=== PATIENT | female | born 1955 | race Caucasian/White ===

== ENCOUNTER 2022-12-16 08:05 | Outpatient (AMB) | payer MEDICARE, SELFPAY ==
--- NOTE | 2022-12-16 08:09 | MHC.OFFWIV ---
Intake Vital Signs 12/16/22 08:10 Height 5 ft 6 in BP 122/70 Blood Pressure Location Lt brachial Position Sitting Pulse 97 Pulse Source Pulse Oximeter Temp 98.1 F Temp Source Oral Pulse Oximetry (%) 96 Oxygen Delivery Method Room Air Intake Visit Reasons: EP Wax Removal Intake Note: Pt is here today for wax removal Allergies No Known Allergies Allergy (Verified 12/16/22 08:28) Medication List - Last Reconciled 12/16/22 by Patricio Cadet MD atorvastatin 20 mg PO DAILY levothyroxine 75 mcg PO DAILY Do you need a note to return to daycare/school/sports/work: No HPI EP Wax Removal HPI Details 67-year-old female presents to the office for a sick visit. Patient has history of hearing loss. She needs her hearing aid replaced. She would like her right ear clean before the hearing aid placement. Physical Exam Vital Signs: Last Vital Signs Temp 98.1 F 12/16/22 08:10 Pulse 97 12/16/22 08:10 BP 122/70 12/16/22 08:10 Pulse Ox 96 12/16/22 08:10 Oxygen Delivery Method Room Air 12/16/22 08:10 HEENT Other: Right ear: Impacted with wax. Left ear wax present, tympanic membrane visualized. Office Procedures Cerumen Removal From which ear canal was the cerumen removed: right Removal: irrigation and otoscope w/curette [id number] Wax Removal by Spoon/Curette Assessment & Plan Assessment & Plan (1) Impacted cerumen, right ear: Code(s): H61.21 - Impacted cerumen, right ear Plan Patient tolerated the procedure well. Orders: Orders AMB Cerumen Removal Today H61.23 - Impacted cerumen, bilateral Coding Level of Care Code Est Pt Level 3 (31736) Diagnoses Impacted cerumen, right ear H61.21 CPT Codes Office Procedure - CPT: 23339-Eoy Wax Removal by Spoon/Curette ([id number])
[2022-12-16 08:10] VITALS: BP 122/70; PULSE 97; TEMP 36.7; O2SAT 96
== END 2022-12-16 08:50 | disposition home or self-care (01) ==
PROVIDERS: PCP Hospitalist; Visit Provider Internal Medicine
DX: H61.21 Impacted cerumen, right ear (principal)
CPT/HCPCS: 69210; 99202

== ENCOUNTER 2023-02-24 09:03 | Outpatient (AMB) | payer MEDICARE, SELFPAY ==
--- NOTE | 2023-02-24 09:11 | A.OFFPC_ITS ---
Vital Signs 02/24/23 09:12 Height 5 ft 6 in Weight 156 lb 4 oz BMI 25.2 BP 126/70 Blood Pressure Location Lt brachial Position Sitting Respiration 12 Pulse 73 Pulse Source Pulse Oximeter Temp 97.2 F Temp Source Temporal Artery Scan Pulse Oximetry (%) 98 Oxygen Delivery Method Room Air Intake Visit Reasons: [employer] Establish care Intake Note: Patient would like to get a new script of medications prescribed by her old primary care office due to her living ot [facility]. She would like the scripts for Atorvastatin and Levothyroxine. [employer] Required: No Accompanied by: Self / Same As Patient Allergies No Known Allergies Allergy (Verified 02/24/23 09:29) Medication List - Last Reconciled 02/24/23 by Albino Martin CNP atorvastatin 20 mg PO DAILY levothyroxine 75 mcg PO DAILY Tobacco use date assessed: 02/24/23 Fall risk assessment: No Falls in past year Last assessed Fall Risk: 02/24/23 Dental Screening Dental Screen Date: 02/24/23 Did you have a dental visit in the last 12 months?: Yes Did you have a dental problem in the last 6 months where you did not have access to dental care?: No Was dental information given to patient?: Patient has dentist HPI HPI Comments History of Present Illness Details 68-year-old female presents to [facility] care She relocated from [place] to [facility] 3 months ago She was last seen by her former PCP 6-7 months. She believes she is due for routine blood work. She has past medical history significant for hyperlipidemia, hypothyroidism, osteoporosis, vitamin B12 deficiency and arthritis of both hands and knees. She also reports palpitations when she is anxious, cardiac origin was ruled out by Cardiology with Holter monitor. She states she takes vit B 12 injections periodically. She states she was on Fosamax for a long period and stopped taking the medication. She reports intermittent bilat knee pain; she requests a referral to Dr. Jimenez, [facility]. She is on Levothyroxine and Atorvastatin which she notes she takes as prescribed. She notes she had an abdominal Ultrasounds done for abdominal pain several months ago; revealed gallstones. She denies acute symptoms at this time. She notes she has not had mammogram in several years : h/o densed tissues. She declines mammogram at this time She states that her last Cologuard test was last year: normal She states her last bone scan was more than 5 years ago: osteoporosis She states her last pap smear test was 5-10 years ago: normal. She declines testing She notes she was vaccinated for shingles in 2019 She states she had the pneumonia vaccines last year. FMH: PGM and MGM had strokes, mother had kidney disease and HTN PFSH Medical History (Updated 02/24/23 @ 10:14 by Albino Martin CNP) Arthritis of both feet Arthritis of both hands Thyroid disease Palpitation Surgical History (Updated 02/24/23 @ 09:24 by Britt Manriquez MA) Hx of cataract removal with insertion of prosthetic lens Family History (Updated 02/24/23 @ 09:25 by Britt Manriquez MA) Mother High blood pressure Maternal Grandmother Cardiovascular disease Paternal Grandmother Cardiovascular disease Social History Housing: House Patient Tobacco Use Status: Never used Tobacco e-Cigarette/Vaping Use: Never Used service: No Current occupational status: retired Cognitive needs: No Hearing needs: Yes Vision needs: Yes Questionnaire PHQ-9 Over the last 2 weeks, how often have you been bothered by any of the following problems? 1. Little interest or pleasure in doing things: not at all 2. Feeling down, depressed, or hopeless: not at all 3. Trouble falling or staying asleep, or sleeping too much: not at all 4. Feeling tired or having little energy: not at all 5. Poor appetite or overeating: not at all 6. Feeling bad about yourself - or that you are a failure or have let yourself or your family down: not at all 7. Trouble concentrating on things, such as reading the newspaper or watching television: not at all 8. Moving or speaking so slowly that other people could have noticed. Or the opposite - being so fidgety or restless that you have been moving around a lot more than usual: not at all 9. Thoughts that you would be better off or of hurting yourself in some way: not at all Total score: 0 Depression Screening Interpretation: Negative Source: Developed by Drs. Vernon Henry, Romana Taylor, Domenico Whitaker and colleagues, with an educational kelton from [employer]. Thrive Questionnaire Date Thrive assessed: 02/24/23 I am a: Patient What is your living situation today?: I have a steady place to live Within the past 12 months, did the food you bought not last and you didn't have the money to get more?: Never true Within the past 12 months, did you worry whether your food would run out before you got money to buy more?: Never true Do you have trouble paying for medicines?: No Do you have trouble getting transportation to medical appointments?: No Do you have trouble paying your heating and electricity bill?: No Do you have trouble taking care of your child, family member or friend?: No Do you have trouble with day-to-day activities such as bathing, preparing meals, shopping, managing finances, etc.?: No Are you currently unemployed and looking for a job?: No Are you interested in more education?: No Please select the resources that you would like help with: None Currently or been in a relationship where the following occur: no concerns reported AUDIT C Alcohol Use Questionnaire (AUDIT-C) 1. How often do you have a drink containing alcohol?: 2-3 times a week 2. How many drinks containing alcohol do you have on a typical day when you are drinking?: 1 or 2 3. How often do you have six or more drinks on one occasion?: Never Total Score: 3 ISAAC-7 AMB Questionnaire ISAAC-7 Date ISAAC - 7 assessed: 02/24/23 Feeling nervous, anxious, or on edge: 0 = Not at all Not being able to stop or control worryin = Not at all Worrying too much about different things: 0 = Not at all Trouble relaxin = Not at all Being so restless that it is hard to sit still: 0 = Not at all Becoming easily annoyed or irritable: 0 = Not at all Feeling afraid as if something awful might happen: 0 = Not at all Total ISAAC-7 score (0-4 normal; 5-9 mild; 10-14 moderate; 15-21 severe): 0 Source: Developed by Drs. Vernon Henry, Romana Taylor, Domenico Whitaker and colleagues, with an educational kelton from [employer]. Review of Systems Const Details: Denies chills, Denies fatigue, Denies fever(s), Denies headache(s) and Denies weakness HEENT Denies change in vision, Denies dizziness, Denies headache(s), Denies hearing loss, Denies nasal congestion, Denies sinus pain, Denies sinus pressure and Denies sore throat Card Denies chest pain, Denies lightheadedness, Denies dyspnea and Denies other (palpitations) Resp Denies cough, Denies dyspnea and Denies wheezing GI Denies abdominal pain, Denies melena, Denies hematochezia, Denies change in bowel habits, Denies dyspepsia and Denies nausea Denies hematuria and Denies dysuria Musc Denies abnormal gait, Denies myalgias, Denies arthralgias, Denies numbness and Denies tingling Skin/Breast Denies rash, Denies unusual bruising and Denies wounds Neuro Denies abnormal gait, Denies dizziness, Denies headache(s), Denies memory loss, Denies numbness, Denies Sensory deficit (Neuro), Denies tingling and Denies weakness Psych Denies anxiety, Denies depression and Denies memory loss Endo Denies cold intolerance, Denies fatigue, Denies heat intolerance, Denies polydipsia and Denies polyuria Alejandro/Lymph Denies easy bleeding and Denies easy bruising Aller/Immun Denies wheezing Physical exam (Primary Care) Vital Signs: Last Vital Signs Temp 97.2 F 02/24/23 09:12 Pulse 73 02/24/23 09:12 Resp 12 02/24/23 09:12 BP 126/70 02/24/23 09:12 Pulse Ox 98 02/24/23 09:12 Oxygen Delivery Method Room Air 02/24/23 09:12 BMI result Body Mass Index 25.2 Tobacco/Smoking Status: Tobacco use Status Tobacco use date assessed 02/24/23 02/24/23 09:22 Patient Tobacco Use Status Never used Tobacco 02/24/23 09:22 e-Cigarette/Vaping Use Never Used 02/24/23 09:22 PHQ-9: PHQ-9 Score PHQ-9: Total score 0 02/24/23 16:59 Depression Screening Interpretation: Negative Thrive Assessment: Date of Thrive Assessment Date Thrive assessed 02/24/23 02/24/23 09:30 Currently or been in a relationship where the following occur: no concerns reported Const Other: General: no acute distress, well developed, alert and awake Nutritional Appearance: well nourished Orientation/consciousness: patient oriented x3 [facility] Head: Yes normocephalic and Yes atraumatic Ears: hearing grossly normal bilaterally and TM's normal bilaterally General nose exam: Normal external nose present and Normal nares present Mouth: Normal oral and palatal mucosa present and moist mucous membranes Teeth and gingiva: dentition normal Throat: Yes oropharynx normal Eyes Pupils: Equal, round and reactive pupils present and Pupil accommodation reflex normal EOM: EOMs intact bilaterally Neck Neck: Yes normal visual inspection, Yes no lymphadenopathy and Yes trachea midline Thyroid: Thyroid normal Carotids: no bruits Lymphatic: no lymphadenopathy noted Chest Chest palpation & inspection: normal inspection of the chest Resp Effort & Inspection: normal respiratory effort Auscultation: clear to auscultation bilaterally Cardio Rate: regular rate Rhythm: regular rhythm Heart sounds: S1 normal heart sound present, S2 normal heart sound present, no gallops, no murmurs and no rubs Bruits: no abdominal aortic bruits and no carotid bruits GI Palpation (GI): No Abdominal aortic bruit present, Soft to palpation, nontender, No hepatosplenomegaly present and No Rebound tenderness present Auscultation: normal bowel sounds General: Yes no CVA tenderness Back/Spine/Pelvis Back: no CVA tenderness Cervical Spine: cervical ROM normal and No Cervical spine tenderness Thoracic/Lumbar Spine: thoraco-lumbar ROM normal, No pain with thoraco-lumbar ROM, No thoracic spinal tenderness and No lumbar spinal tenderness Skin General: warm and dry. Normal skin color. Normal skin turgor Lesions: no lesions Rashes: no rashes Trauma: no lacerations or abrasions Wounds: no wounds Nails: normal Neuro General: patient oriented x3, gait normal and CN's II-XI intact bilaterally Cranial nerves: Yes Equal, round and reactive pupils present Cognition (Neuro): normal cognition Gait exam (Neuro): Normal gait present Motor exam (neuro): 5/5 motor strength present throughout Sensory Exam: No Sensory deficit (Neuro) Deep tendon reflexes (DTR's): Right patellar reflex intensity grade: 2+ and Left patellar reflex intensity grade: 2+ Extrem General: Yes normal to inspection, No edema and No calf tenderness Psych Appearance: grossly normal Affect: normal affect Attitude: cooperative Thought process: Normal thought process present Assessment and Plan Assessment & Plan (1) Normal physical examination, routine: Code(s): Z00.00 - Encounter for general adult medical examination without abnormal findings Plan: No significant physical restrictions or limitations noted Advised to get routine fasting blood work done Follow-up in 1 month for labs review, hyperlipidemia, and hypothyroidism Return sooner with symptoms or concerns Verbalized understanding and agreed with treatment plan. (2) Hypothyroidism: Code(s): E03.9 - Hypothyroidism, unspecified Qualifiers: Hypothyroidism type: unspecified Qualified Code(s): E03.9 - Hypothyroidism, unspecified Plan: TSH/T4 ordered Will review results and make changes to her care plan if warranted Continue to take levothyroxine as prescribed Verbalized understanding and agreed with the treatment plan. (3) Hyperlipidemia: Code(s): E78.5 - Hyperlipidemia, unspecified Qualifiers: Hyperlipidemia type: unspecified Qualified Code(s): E78.5 - Hyperlipidemia, unspecified Plan: Will check lipid panel and make changes to her care plan if warranted Continue to take atorvastatin 20 mg daily Advised to limit foods high in saturated fat and avoid foods high trans fat Routine exercise encouraged Follow-up in 1 month or return sooner with concerns or symptoms Verbalized understanding and agreed with treatment plan. (4) Osteoporosis: Code(s): M81.0 - Age-related osteoporosis without current pathological fracture Qualifiers: Encounter type: initial encounter Osteoporosis type: unspecified Plan: She reports history of osteoporosis and states she was on Fosamax for a long period and stopped taking the medication. DEXA scan ordered. Will review results and make changes to her care plan if warranted Instructed on safety to prevent fall Verbalized understanding and agreed with treatment plan. (5) Arthritis: Code(s): M19.90 - Unspecified osteoarthritis, unspecified site Plan: She reports history of arthritis to her hands and knees. She notes intermittent bilat knee pain and she requests a referral to Dr. Jimenez, [facility]. Referred to Dr. Jimenez, orthopedics May take Tylenol ibuprofen for pain or discomfort Warm/cold compresses encouraged Return with worsening or new symptoms Verbalized understanding and agreed with treatment plan. (6) Laboratory tests ordered as part of a complete physical exam (CPE): Code(s): Z00.00 - Encounter for general adult medical examination without abnormal findings Plan: Fasting labs ordered as part of a complete physical exam. Advised to fast for at least 10 hours before getting labs drawn. May drink water Verbalized understanding and agreed with treatment plan. Orders: Orders Complete Blood Count Auto Diff 02/24/23 Z00.00 - Encounter for general adult medical examination without abnormal findings Comprehensive [place]us. Panel Fast 02/24/23 Z00.00 - Encounter for general adult medical examination without abnormal findings UA CC w/rflx Micro + Cult 02/24/23 Z00.00 - Encounter for general adult medical examination without abnormal findings Lipid Panel 02/24/23 Z00.00 - Encounter for general adult medical examination without abnormal findings TSH reflex Free T4 02/24/23 Z00.00 - Encounter for general adult medical examination without abnormal findings XR DEXA axial skeleton 02/24/23 M81.0 - Age-related osteoporosis without current pathological fracture Referrals Orthopedics Referral M19.90 - Unspecified osteoarthritis, unspecified site Medications: Changed From atorvastatin 20 mg PO DAILY To atorvastatin 20 mg PO DAILY 90 tabs 1RF 90 days From levothyroxine 75 mcg PO DAILY To levothyroxine 75 mcg PO DAILY 90 tabs 1RF 90 days Coding Level of Care Code New Pt Prev Care >65yr (37847) Diagnoses Normal physical examination, routine Z00.00 Hypothyroidism, unspecified type E03.9 Hypothyroidism type: unspecified Hyperlipidemia, unspecified hyperlipidemia type E78.5 Hyperlipidemia type: unspecified Osteoporosis M81.0 Encounter type: initial encounter Osteoporosis type: unspecified Arthritis M19.90 Laboratory tests ordered as part of a complete physical exam (CPE) Z00.00
[2023-02-24 09:12] VITALS: BP 126/70; PULSE 73; RESP 12; TEMP 36.2; O2SAT 98; BMI 25.2
== END 2023-02-24 10:13 | disposition home or self-care (01) ==
PROVIDERS: PCP Hospitalist; Visit Provider Nurse Practitioner Family
DX: Z00.00 Encounter for general adult medical examination without abnormal findings (principal); E03.9 Hypothyroidism, unspecified; E78.5 Hyperlipidemia, unspecified; M81.0 Age-related osteoporosis without current pathological fracture; M19.90 Unspecified osteoarthritis, unspecified site
CPT/HCPCS: 99387

== ENCOUNTER 2023-02-24 10:14 | Outpatient (REF) | payer MEDICARE, SELFPAY ==
[2023-02-24 11:13] LABS: MANUAL DIFF FLAG NO
[2023-02-24 11:43] LABS: Basophils Percent Auto 0.8 % (0-2); Eosinophils Absolute Auto 0.1 X10*3/uL (0.0-0.4); Eosinophils Percent Auto 1.2 % (0-4); Hematocrit 42.7 % (37.0-47.0); Hemoglobin 13.9 g/dl (12.0-16.0); Imm Gran Abs Auto 0.01 X10*3/uL (0.00-0.03); Imm Gran Pct Auto 0.2 % (0.0-0.4); Lymphocytes Absolute Auto 1.9 X10*3/uL (1.2-4.9); Lymphocytes Percent Auto 37.3 % (20-40); Mean Corpuscular HGB Conc 32.6 g/dl (31.0-35.0); Mean Corpuscular Hemoglobin 29.4 pg (27.0-33.0); Mean Corpuscular Volume 90.3 fL (80.0-98.0); Mean Platelet Volume 11.6 fL (9.4-12.3); Monocytes Absolute Auto 0.4 X10*3/uL (0.1-1.2); Monocytes Percent Auto 7.7 % (2-11); Neutrophils Absolute Auto 2.6 x10*3/uL (2.0-8.3); Neutrophils Percent Auto 52.8 % (45-73); Platelet Count 233 X10*3/uL (160-400); Red Blood Count 4.73 X10*6/uL (4.20-5.50); Red Cell Distribution Width 12.2 % (11.0-16.0)
[2023-02-24 13:01] LABS: Alanine Aminotransferase 18 U/L (0-31); Albumin Level 4.2 g/dL (3.5-5.0); Alkaline Phosphatase 90 U/L (39-117); Anion Gap 10 (12-20); Aspartate Amino Transferase 26 U/L (5-31); Bilirubin Total 0.6 mg/dL (0.0-1.0); Blood Urea Nitrogen 12 mg/dL (9-16); Calcium 9.3 mg/dL (8.4-10.2); Carbon Dioxide 28 mmol/L (22-29); Chloride 107 mmol/L (96-108); Cholesterol 185 mg/dL (<200); Estimated Glomerular Filt Rate > 60; Glucose Fasting 90 mg/dL (60-99); HDL Cholesterol 54 mg/dL (>40); LDL Cholesterol Calculated 109 mg/dL (<100); Potassium 3.6 mmol/L (3.3-5.1); Sodium 141 mmol/L (135-145); Total Protein 7.2 g/dL (6.5-8.0); Triglycerides 113 mg/dL (<150)
[2023-02-24 13:17] LABS: TSH reflex Free T4 0.42 uIU/mL (0.32-4.0)
[2023-02-24 15:08] LABS: Appearance Urine Turbid; Color Urine Yellow; Glucose Urine UA Negative (Negative); Leukocyte Esterase Urine Trace (Negative); Nitrite Urine Negative (Negative); PH 5.5 (5.0-9.0); UMIC TRIGGER UACC YES; Urine Blood Trace (Negative); Urine Ketones Negative (Negative); Urine Protein Negative (Neg-Trace)
[2023-02-24 15:11] LABS: Bacteria Urine None Seen (None Seen); Hyaline Casts Urine 0-2 /LPF (0-2); RBC Urine 0-2 /HPF (0-2); Squamous Epithelial Cell Urine 0-2 /HPF (0-2); WBC Urine 0-5 /HPF (0-5)
== END 2023-02-24 10:15 | disposition home or self-care (01) ==
LOC: HO.WFDLDS 10:14
PROVIDERS: Visit Provider Nurse Practitioner Family
DX: Z00.00 Encounter for general adult medical examination without abnormal findings (principal)
CPT/HCPCS: 36415; 80053; 80061; 81001; 81003; 84443; 85025

== ENCOUNTER 2023-03-18 10:23 | Outpatient (REF) | payer MEDICARE, SELFPAY | END 2023-03-18 10:24 | disposition home or self-care (01) | LOC: HO.MAMMO 10:23 | PROVIDERS: PCP Nurse Practitioner Family; Visit Provider Nurse Practitioner Family | DX: Z13.820 Encounter for screening for osteoporosis (principal); M81.0 Age-related osteoporosis without current pathological fracture; Z78.0 Asymptomatic menopausal state | CPT/HCPCS: 77080 ==

== ENCOUNTER 2023-03-25 08:53 | Outpatient (AMB) | payer MEDICARE, SELFPAY ==
[2023-03-25 08:58] VITALS: BP 126/66; PULSE 84; RESP 13; TEMP 37; O2SAT 99; BMI 25.3
--- NOTE | 2023-03-25 08:58 | A.OFFPC_ITS ---
Vital Signs 03/25/23 08:58 Height 5 ft 6 in Weight 157 lb BMI 25.3 BP 126/66 Blood Pressure Location Lt brachial Position Sitting Respiration 13 Pulse 84 Pulse Source Pulse Oximeter Temp 98.6 F Temp Source Oral Pulse Oximetry (%) 99 Oxygen Delivery Method Room Air Intake Visit Reasons: f/u labs review, HLD, hypothyroidism Intake Note: Patient is here to review her labs and her bone density screening. 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 She established care last month. Routine labs were ordered. She offers no complaints and denies acute symptoms. She had a bone scan on 03/18/2023 which revealed Osteoporosis based on the lowest T-score value of -2.7 in the total femur. She notes that she was on Fosamax for 3 years. She stopped taking the medication 1 year ago due to a scheduled took extraction that required her not being on the medication. She notes she did not get the tooth extracted and did not resumed taking the medication. She does not want to continue taking Fosamax. [facility] Medical History (Updated 03/25/23 @ 09:56 by Albino Martin CNP) Arthritis of both feet Arthritis of both hands Thyroid disease Palpitation Surgical History (Updated 02/24/23 @ 09:24 by Britt Manriquez MA) Hx of cataract removal with insertion of prosthetic lens Family History (Updated 02/24/23 @ 09:25 by Britt Manriquez MA) Mother High blood pressure Maternal Grandmother Cardiovascular disease Paternal Grandmother Cardiovascular disease Social History Housing: House Patient Tobacco Use Status: Never used Tobacco e-Cigarette/Vaping Use: Never Used service: No Current occupational status: retired Cognitive needs: No Hearing needs: Yes Vision needs: Yes Questionnaire Thrive Questionnaire Date Thrive assessed: 02/24/23 ISAAC-7 AMB Questionnaire ISAAC-7 Date ISAAC - 7 assessed: 02/24/23 Source: Developed by Drs. Vernon Henry, Romana Taylor, Domenico Whitaker and colleagues, with an educational kelton from [employer]. Review of Systems Const Details: Const Denies chills, Denies fatigue, Denies fever(s), Denies headache(s) and Denies weakness ENT Denies dizziness and Denies headache(s) Card Denies chest pain, Denies lightheadedness, Denies dyspnea and Denies other (Palpitations) Resp Denies cough, Denies dyspnea, Denies wheezing and Denies other ( shortness of breath) GI Denies abdominal pain, Denies melena, Denies hematochezia, Denies change in bowel habits, Denies dyspepsia and Denies nausea Denies hematuria and Denies dysuria Musc Denies abnormal gait, Denies myalgias, Denies arthralgias, Denies numbness and Denies tingling Skin/Breast Denies rash, Denies unusual bruising and Denies wounds Neuro Denies abnormal gait, Denies dizziness, Denies headache(s), Denies memory loss, Denies numbness, Denies Sensory deficit (Neuro), Denies tingling and Denies weakness Psych Denies anxiety, Denies depression, Denies memory loss Endo Denies cold intolerance, Denies fatigue, Denies heat intolerance, Denies polydipsia and Denies polyuria Aller/Immun Denies wheezing Physical exam (Primary Care) Vital Signs: Last Vital Signs Temp 98.6 F 03/25/23 08:58 Pulse 84 03/25/23 08:58 Resp 13 03/25/23 08:58 BP 126/66 03/25/23 08:58 Pulse Ox 99 03/25/23 08:58 Oxygen Delivery Method Room Air 03/25/23 08:58 BMI result Body Mass Index 25.3 Tobacco/Smoking Status: Tobacco use Status Tobacco use date assessed 02/24/23 03/25/23 09:04 Patient Tobacco Use Status Never used Tobacco 03/25/23 09:04 e-Cigarette/Vaping Use Never Used 03/25/23 09:04 Thrive Assessment: Date of Thrive Assessment Date Thrive assessed 02/24/23 03/25/23 09:04 Const Other: General: no acute distress and well developed Nutritional Appearance: well nourished Orientation/consciousness: patient oriented x3 HENMT Head: Yes normocephalic and Yes atraumatic Eyes General: appearance normal, both eyes and all related structures Pupils: Equal, round and reactive pupils present EOM: EOMs intact bilaterally Resp Effort & Inspection: normal respiratory effort Auscultation: clear to auscultation bilaterally Cardio Rate: regular rate Rhythm: regular rhythm Heart sounds: S1 normal heart sound present, S2 normal heart sound present, no gallops, no murmurs and no rubs GI Palpation (GI): No Abdominal aortic bruit present, Soft to palpation, nontender, No hepatosplenomegaly present and No Rebound tenderness present Auscultation: normal bowel sounds General: Yes no CVA tenderness Back/Spine/Pelvis Back: no CVA tenderness Cervical Spine: cervical ROM normal and No Cervical spine tenderness Thoracic/Lumbar Spine: thoraco-lumbar ROM normal, No pain with thoraco-lumbar ROM, No thoracic spinal tenderness and No lumbar spinal tenderness Extrem General: Yes normal to inspection, No edema and No calf tenderness Skin General: warm and dry. Normal skin color. Normal skin turgor Lesions: no lesions Rashes: no rashes Trauma: no lacerations or abrasions Wounds: no wounds Nails: normal Neuro General: patient oriented x3, gait normal and no focal neuro deficit Cranial nerves: Yes Equal, round and reactive pupils present Cognition (Neuro): normal cognition Gait exam (Neuro): Normal gait present Sensory Exam: No Sensory deficit (Neuro) Psych Appearance: grossly normal Affect: normal affect Attitude: cooperative Thought process: Normal thought process present Assessment and Plan Assessment & Plan (1) Hyperlipidemia: Code(s): E78.5 - Hyperlipidemia, unspecified Qualifiers: Hyperlipidemia type: unspecified Qualified Code(s): E78.5 - Hyperlipidemia, unspecified Plan: Recent labs reviewed the patient. Results were unremarkable except for slightly elevated LDL, 109 Continue with current treatment regimen Advised to limit foods high in saturated fat and avoid foods high trans fat Routine exercise encouraged Will repeat lipid panel in 6 months. Advised to fast for her 10-12 hours and get blood work done 2-3 days before next visit Return with symptoms or concerns Verbalized understanding and agreed with treatment plan. (2) Osteoporosis: Code(s): M81.0 - Age-related osteoporosis without current pathological fracture Qualifiers: Osteoporosis type: unspecified Encounter type: initial encounter Plan: She had a bone scan on 03/18/2023 which revealed Osteoporosis based on the lowest T-score value of -2.7 in the total femur. She notes that she was on Fosamax for 3 years. She stopped taking the medication 1 year ago due to a scheduled took extraction that required her not being on the medication. She notes she did not get the tooth extracted and did not resumed taking the medication. She does not want to cont inue taking Fosamax. She is on vitamin D3 2000 units daily Will check vitamin-D levels Continue to take vitamin D3 daily Will recheck levels in 6 months Verbalized understanding and agreed with treatment plan. (3) Hypothyroidism: Code(s): E03.9 - Hypothyroidism, unspecified Qualifiers: Hypothyroidism type: unspecified Qualified Code(s): E03.9 - Hypothyroidism, unspecified Plan: Recent TSH level is normal Continue current treatment regimen Will recheck levels in 6 months Follow-up in 6 months or return sooner with symptoms or concerns Verbalized understanding and agreed with treatment plan. (4) Vitamin D deficiency: Code(s): E55.9 - Vitamin D deficiency, unspecified Plan: Vitamin-D level was slightly low on was 4 years ago, 25. She is on vitamin D3 2000 units daily. Continue to take as prescribed Will recheck vitamin-D level in 6 months Verbalized understanding and agreed with treatment plan Orders: Orders Lipid Panel Today E78.5 - Hyperlipidemia, unspecified Vitamin D 25-OH Total Today E55.9 - Vitamin D deficiency, unspecified TSH reflex Free T4 Today E03.9 - Hypothyroidism, unspecified Vitamin D 25-OH Total Today E55.9 - Vitamin D deficiency, unspecified Coding Level of Care Code Est Pt Level 4 (41288) Diagnoses Hyperlipidemia, unspecified hyperlipidemia type E78.5 Hyperlipidemia type: unspecified Osteoporosis M81.0 Osteoporosis type: unspecified Encounter type: initial encounter Hypothyroidism, unspecified type E03.9 Hypothyroidism type: unspecified Vitamin D deficiency E55.9
== END 2023-03-25 10:02 | disposition home or self-care (01) ==
PROVIDERS: PCP Hospitalist; Visit Provider Nurse Practitioner Family
DX: E78.5 Hyperlipidemia, unspecified (principal); M81.0 Age-related osteoporosis without current pathological fracture; E03.9 Hypothyroidism, unspecified; E55.9 Vitamin D deficiency, unspecified
CPT/HCPCS: 99214

== ENCOUNTER 2023-03-25 09:54 | Outpatient (REF) | payer MEDICARE, SELFPAY ==
[2023-03-25 15:28] LABS: Cholesterol 179 mg/dL (<200); HDL Cholesterol 55 mg/dL (>40); LDL Cholesterol Calculated 100 mg/dL (<100); TSH reflex Free T4 0.55 uIU/mL (0.32-4.0); Triglycerides 123 mg/dL (<150); Vitamin D 25-OH Total 36.7 ng/mL (>30)
== END 2023-03-25 09:55 | disposition home or self-care (01) ==
LOC: HO.WFDLDS 09:54
PROVIDERS: Visit Provider Nurse Practitioner Family
DX: E55.9 Vitamin D deficiency, unspecified (principal); E03.9 Hypothyroidism, unspecified; E78.5 Hyperlipidemia, unspecified
CPT/HCPCS: 36415; 80061; 82306; 84443

== ENCOUNTER 2023-10-12 12:33 | Outpatient (AMB) | payer MEDICARE, SELFPAY ==
[2023-10-12 12:41] VITALS: BP 130/80; PULSE 94; TEMP 36.8; O2SAT 96; BMI 26.5
--- NOTE | 2023-10-12 12:41 | AM.OFFWIN_ITS ---
Intake Vital Signs 10/12/23 12:41 Height 5 ft 6 in Weight 164 lb BMI 26.5 BP 130/80 Blood Pressure Location Lt brachial Position Sitting Pulse 94 Pulse Source Pulse Oximeter Temp 98.2 F Temp Source Temporal Artery Scan Pulse Oximetry (%) 96 Oxygen Delivery Method Room Air Intake Visit Reasons: EP Sore throat Intake Note: pt is here today for sore throat started today Patient Tobacco Use Status: Never used Tobacco Allergies No Known Allergies Allergy (Verified 10/12/23 12:46) Do you need a note to return to daycare/school/sports/work: No HPI HPI Comments History of Present Illness Details Patient presents to the walk-in today for sick visit Complaining of sore throat since this morning Pain worse with swallowing Denies headaches, fevers, chest pain, syncope, dizziness, weakness or difficulty managing secretions States had COVID in the past with sore throat similar. Did not take a COVID test at home because she thought it was too soon. She was worried that she has strep throat. [facility] Medical History (Updated 10/12/23 @ 13:25 by Elham Burnett APRN, BORDER PATROL AGENT) Arthritis of both feet Arthritis of both hands Thyroid disease Palpitation Surgical History (Updated 02/24/23 @ 09:24 by AL Freedman) Hx of cataract removal with insertion of prosthetic lens Family History (Updated 02/24/23 @ 09:25 by AL Freedman) Mother High blood pressure Maternal Grandmother Cardiovascular disease Paternal Grandmother Cardiovascular disease Social History Housing: House Patient Tobacco Use Status: Never used Tobacco e-Cigarette/Vaping Use: Never Used service: No Current occupational status: retired Cognitive needs: No Hearing needs: Yes Vision needs: Yes Review of Systems Const All systems reviewed & are unremarkable except as noted in HPI and below Physical Exam Vital Signs: Last Vital Signs Temp 98.2 F 10/12/23 12:41 Pulse 94 10/12/23 12:41 BP 130/80 10/12/23 12:41 Pulse Ox 96 10/12/23 12:41 Oxygen Delivery Method Room Air 10/12/23 12:41 BMI result Body Mass Index 26.5 General: awake, alert, oriented. Answers questions appropriately. Fully engaged in examination. Skin: warm, dry, intact HEENT: Posterior pharynx without exudate. Moist oral mucosa. Sclera without icterus or injection. Cardiac: External chest normal in appearance. Respiratory: Resp even unlabored. No audible wheezing or stridor. Abdomen: without gross distension. Neurological: Oriented to person, place, time and situation. Thought process intact. Psychiatric: Appropriate mood and affect. Good judgment and insight. Results AMB Rapid Strep AMB Rapid Strep Negative Last Edit by Suzan Saleem MA on 10/12/23 13:36 Results Reviewed Results Reviewed: Rapid strep negative Assessment & Plan Assessment & Plan (1) Pharyngitis: Code(s): J02.9 - Acute pharyngitis, unspecified Plan Strep negative, no abx warranted. SARS-CoV2/FLU/RSV swab collected, results pending. Patient aware she will be called with results. Rest, drink plenty of fluids, tylenol or motrin as needed. Recommend salt water gargles Follow up with pcp or in clinic for any new or worsening symptoms. Go to ER for shortness of breath, chest pain, palpitations, weakness, dizziness. Orders: Orders SARS-CoV2/FLU/RSV Today J06.9 - Acute upper respiratory infection, unspecified Coding Level of Care Code Est Pt Level 3 (37789) Diagnoses Pharyngitis J02.9
== END 2023-10-12 14:31 | disposition home or self-care (01) ==
PROVIDERS: PCP Nurse Practitioner Family; Visit Provider Registered Nurse Emergency
DX: J02.9 Acute pharyngitis, unspecified (principal)
CPT/HCPCS: 87880; 99213

== ENCOUNTER 2023-10-12 13:21 | Outpatient (REF) | payer MEDICARE, SELFPAY ==
[2023-10-12 17:44] LABS: Influenza A PCR NEGATIVE (Negative); Influenza B PCR NEGATIVE (Negative); Resp Syncy Virus RNA Qual PCR NEGATIVE (Negative); SARS COV2 PCR INHOUSE NEGATIVE (Negative)
== END 2023-10-12 13:22 | disposition home or self-care (01) ==
LOC: HO.LAB 13:21
PROVIDERS: Visit Provider Registered Nurse Emergency
DX: J06.9 Acute upper respiratory infection, unspecified (principal)
CPT/HCPCS: 0241U

== ENCOUNTER 2023-10-20 12:57 | Outpatient (AMB) | payer MEDICARE, SELFPAY ==
--- NOTE | 2023-10-20 13:07 | MHC.PC.OV ---
Vital Signs 10/20/23 13:11 Height 5 ft 6 in Weight 164 lb 6 oz BMI 26.5 BP 128/66 Blood Pressure Location Rt brachial Position Sitting Respiration 14 Pulse 82 Pulse Source Pulse Oximeter Temp 97.5 F Temp Source Temporal Artery Scan Pulse Oximetry (%) 98 Oxygen Delivery Method Room Air Intake Visit Reasons: 6 mos HLD, hypothyroidism, vitamin-D deficiency Meter Maker Required: No Accompanied by: Self / Same As Patient Allergies No Known Allergies Allergy (Verified 10/20/23 13:29) Medication List - Last Reconciled 10/20/23 by Albino Martin CNP atorvastatin 20 mg PO DAILY 90 days cholecalciferol (vitamin D3) 50 mcg PO DAILY levothyroxine 75 mcg PO DAILY 90 days Tobacco use date assessed: 10/20/23 Fall risk assessment: No Falls in past year Last assessed Fall Risk: 10/20/23 Dental Screening Dental Screen Date: 10/20/23 Did you have a dental visit in the last 12 months?: Yes Did you have a dental problem in the last 6 months where you did not have access to dental care?: No Was dental information given to patient?: Patient has dentist HPI HPI Comments History of Present Illness Details 68-year-old female presents for hyperlipidemia, hypothyroidism, and vitamin-D deficiency follow-up She admits to taking her medications as prescribed without adverse reactions She notes that she recently recovered from a cold She has an appointment with [facility] orthopedic surgery for right knee replacement. She reports chronic right knee pain for which she takes Tylenol occasionally She denies acute symptoms at this time [facility] Medical History (Updated 10/12/23 @ 13:25 by Elham Burnett APRN, CNP) Arthritis of both feet Arthritis of both hands Thyroid disease Palpitation Surgical History (Updated 02/24/23 @ 09:24 by AL Freedman) Hx of cataract removal with insertion of prosthetic lens Family History (Updated 10/20/23 @ 13:20 by AL Freedman) Mother High blood pressure Maternal Grandmother Cardiovascular disease Paternal Grandmother Cardiovascular disease Social History Household Members: None Both parents involved: No Caregiver staying overnight: No Housing: House Are you a primary clinical manager home care to a significant other at home: No Do you presently have visiting nurse or other home services: No 75 years or older and lives alone: No Alcohol intake: current Alcohol intake frequency: holidays/special occasions only Alcohol type: wine and hard liquor Patient Tobacco Use Status: Never used Tobacco e-Cigarette/Vaping Use: Never Used service: No Current occupational status: retired Cognitive needs: No Hearing needs: Yes Vision needs: No Questionnaire Thrive Questionnaire Date Thrive assessed: 02/24/23 ISAAC-7 AMB Questionnaire ISAAC-7 Date ISAAC - 7 assessed: 02/24/23 Source: Developed by Drs. Vernon Henry, Romana Taylor, Domenico Whitaker and colleagues, with an educational kelton from [employer] Review of Systems Const Details: Const Denies chills, Denies fatigue, Denies fever(s), Denies headache(s) and Denies weakness ENT Denies dizziness and Denies headache(s) Card Denies chest pain, Denies lightheadedness, Denies dyspnea and Denies other (Palpitations) Resp Denies cough, Denies dyspnea, Denies wheezing and Denies other ( shortness of breath) GI Denies abdominal pain, Denies melena, Denies hematochezia, Denies change in bowel habits, Denies dyspepsia and Denies nausea Denies hematuria and Denies dysuria Musc Reports as per HPI Skin/Breast Denies rash, Denies unusual bruising and Denies wounds Neuro Denies abnormal gait, Denies dizziness, Denies headache(s), Denies memory loss, Denies numbness, Denies Sensory deficit (Neuro), Denies tingling and Denies weakness Psych Denies anxiety, Denies depression, Denies memory loss Endo Denies cold intolerance, Denies fatigue, Denies heat intolerance, Denies polydipsia and Denies polyuria Aller/Immun Denies wheezing Physical exam (Primary Care) Tobacco/Smoking Status: Tobacco use Status Tobacco use date assessed 02/24/23 03/25/23 09:04 Patient Tobacco Use Status Never used Tobacco 10/12/23 12:42 e-Cigarette/Vaping Use Never Used 03/25/23 09:04 Thrive Assessment: Date of Thrive Assessment Date Thrive assessed 02/24/23 03/25/23 09:04 Const Other: General: no acute distress and well developed Nutritional Appearance: well nourished Orientation/consciousness: patient oriented x3 HENMT Head: Yes normocephalic and Yes atraumatic Eyes General: appearance normal, both eyes and all related structures Pupils: Equal, round and reactive pupils present EOM: EOMs intact bilaterally Resp Effort & Inspection: normal respiratory effort Auscultation: clear to auscultation bilaterally Cardio Rate: regular rate Rhythm: regular rhythm Heart sounds: S1 normal heart sound present, S2 normal heart sound present, no gallops, no murmurs and no rubs GI Palpation (GI): No Abdominal aortic bruit present, Soft to palpation, nontender, No hepatosplenomegaly present and No Rebound tenderness present Auscultation: normal bowel sounds General: Yes no CVA tenderness Back/Spine/Pelvis Back: no CVA tenderness Cervical Spine: cervical ROM normal and No Cervical spine tenderness Thoracic/Lumbar Spine: thoraco-lumbar ROM normal, No pain with thoraco-lumbar ROM, No thoracic spinal tenderness and No lumbar spinal tenderness Extrem General: Yes normal to inspection, No edema and No calf tenderness Skin General: warm and dry. Normal skin color. Normal skin turgor Neuro General: patient oriented x3, gait normal and no focal neuro deficit Cranial nerves: Yes Equal, round and reactive pupils present Cognition (Neuro): normal cognition Gait exam (Neuro): Normal gait present Sensory Exam: No Sensory deficit (Neuro) Psych Appearance: grossly normal Affect: normal affect Attitude: cooperative Thought process: Normal thought process present Assessment and Plan Assessment & Plan (1) Hypothyroidism: Code(s): E03.9 - Hypothyroidism, unspecified Qualifiers: Hypothyroidism type: unspecified Qualified Code(s): E03.9 - Hypothyroidism, unspecified Plan: TSH level was normal in March 2023 She forget to get fasting blood work done before this visit but will do so as soon as possible. Will make changes as needed Continue to take levothyroxine 25 mcg daily Follow-up in 5 months for an extended physical exam or return sooner with symptoms or concerns Verbalized understanding and agreed with treatment (2) Vitamin D deficiency: Code(s): E55.9 - Vitamin D deficiency, unspecified Plan: Vitamin-D level was normal in March 2023 Plan as above (3) Hyperlipidemia: Code(s): E78.5 - Hyperlipidemia, unspecified Qualifiers: Hyperlipidemia type: unspecified Qualified Code(s): E78.5 - Hyperlipidemia, unspecified Plan: Lipid panel was normal in March 2023 Plan as above (4) Chronic pain of right knee: Code(s): M25.561 - Pain in right knee; G89.29 - Other chronic pain Plan: Followed by [facility] orthopedic surgery Has total knee replacement surgery schedule in January Take Tylenol ibuprofen as needed Warm/cool compresses encouraged Verbalized understanding and agreed with the plan Orders: Orders Comprehensive [place]. Panel Fast 5 Months Z00.00 - Encounter for general adult medical examination without abnormal findings TSH reflex Free T4 5 Months Z00.00 - Encounter for general adult medical examination without abnormal findings Microalbumin, Random (w Creat) 5 Months Z00.00 - Encounter for general adult medical examination without abnormal findings Complete Blood Count Auto Diff 5 Months Z00.00 - Encounter for general adult medical examination without abnormal findings Lipid Panel 5 Months Z00.00 - Encounter for general adult medical examination without abnormal findings UA CC w/rflx Micro + Cult 5 Months Z00.00 - Encounter for general adult medical examination without abnormal findings Vitamin D 25-OH Total 5 Months Z00.00 - Encounter for general adult medical examination without abnormal findings Coding Level of Care Code Est Pt Level 4 (55930) Complex EM visit Add On G2211 Diagnoses Hypothyroidism, unspecified type E03.9 Hypothyroidism type: unspecified Vitamin D deficiency E55.9 Hyperlipidemia, unspecified hyperlipidemia type E78.5 Hyperlipidemia type: unspecified Chronic pain of right knee M25.561; G89.29
[2023-10-20 13:11] VITALS: BP 128/66; PULSE 82; RESP 14; TEMP 36.4; O2SAT 98; BMI 26.5
== END 2023-10-20 13:44 | disposition home or self-care (01) ==
PROVIDERS: PCP Nurse Practitioner Family; Visit Provider Nurse Practitioner Family
DX: E03.9 Hypothyroidism, unspecified (principal); E55.9 Vitamin D deficiency, unspecified; E78.5 Hyperlipidemia, unspecified; M25.561 Pain in right knee; G89.29 Other chronic pain
CPT/HCPCS: 99214; G2211

== ENCOUNTER 2023-10-26 08:26 | Outpatient (REF) | payer MEDICARE, SELFPAY ==
[2023-10-26 11:32] LABS: MANUAL DIFF FLAG NO
[2023-10-26 11:41] LABS: Basophils Percent Auto 0.7 % (0-2); Eosinophils Absolute Auto 0.1 X10*3/uL (0.0-0.4); Hematocrit 41.9 % (37.0-47.0); Hemoglobin 13.6 g/dl (12.0-16.0); Imm Gran Abs Auto 0.01 X10*3/uL (0.00-0.03); Imm Gran Pct Auto 0.2 % (0.0-0.4); Lymphocytes Absolute Auto 2.2 X10*3/uL (1.2-4.9); Lymphocytes Percent Auto 40.9 % (20-40); Mean Corpuscular HGB Conc 32.5 g/dl (31.0-35.0); Mean Corpuscular Hemoglobin 29.8 pg (27.0-33.0); Mean Corpuscular Volume 91.9 fL (80.0-98.0); Mean Platelet Volume 10.6 fL (9.4-12.3); Monocytes Absolute Auto 0.5 X10*3/uL (0.1-1.2); Monocytes Percent Auto 8.4 % (2-11); Neutrophils Absolute Auto 2.6 x10*3/uL (2.0-8.3); Neutrophils Percent Auto 47.8 % (45-73); Platelet Count 260 X10*3/uL (160-400); Red Blood Count 4.56 X10*6/uL (4.20-5.50); Red Cell Distribution Width 12.2 % (11.0-16.0); White Blood Count 5.4 X10*3/uL (4.8-10.8)
[2023-10-26 12:13] LABS: Alanine Aminotransferase 21 U/L (0-31); Albumin Level 3.9 g/dL (3.5-5.0); Alkaline Phosphatase 87 U/L (39-117); Anion Gap 13 (12-20); Aspartate Amino Transferase 27 U/L (5-31); Bilirubin Total 0.6 mg/dL (0.0-1.0); Blood Urea Nitrogen 12 mg/dL (9-16); Calcium 9.1 mg/dL (8.4-10.2); Carbon Dioxide 26 mmol/L (22-29); Chloride 108 mmol/L (96-108); Cholesterol 185 mg/dL (<200); Estimated Glomerular Filt Rate > 60; Glucose Fasting 91 mg/dL (60-99); HDL Cholesterol 51 mg/dL (>40); LDL Cholesterol Calculated 111 mg/dL (<100); Potassium 4.1 mmol/L (3.3-5.1); Sodium 143 mmol/L (135-145); Total Protein 6.8 g/dL (6.5-8.0); Triglycerides 116 mg/dL (<150); Vitamin D 25-OH Total 51.4 ng/mL (>30)
[2023-10-26 14:48] LABS: Appearance Urine Clear; Color Urine Yellow; Glucose Urine UA Negative (Negative); Leukocyte Esterase Urine Trace (Negative); Nitrite Urine Negative (Negative); UMIC TRIGGER UACC YES; Urine Blood Negative (Negative); Urine Ketones Negative (Negative); Urine Protein Negative (Neg-Trace)
[2023-10-26 14:51] LABS: Bacteria Urine None Seen (None Seen); Hyaline Casts Urine 0-2 /LPF (0-2); RBC Urine 0-2 /HPF (0-2); Squamous Epithelial Cell Urine 0-2 /HPF (0-2); WBC Urine 0-5 /HPF (0-5)
[2023-10-26 15:37] LABS: Creatinine Urine 35.27 mg/dL; Microalbumin Urine < 5.0 mg/L
== END 2023-10-26 08:27 | disposition home or self-care (01) ==
LOC: HO.WFDLDS 08:26
PROVIDERS: Visit Provider Nurse Practitioner Family
DX: Z00.00 Encounter for general adult medical examination without abnormal findings (principal); E55.9 Vitamin D deficiency, unspecified; E78.5 Hyperlipidemia, unspecified; E03.9 Hypothyroidism, unspecified
CPT/HCPCS: 36415; 80053; 80061; 81001; 82043; 82306; 82570; 84443; 85025

== ENCOUNTER 2024-04-05 09:23 | Outpatient (REF) | payer MEDICARE, SELFPAY ==
[2024-04-05 12:47] LABS: Cholesterol 168 mg/dL (<200); HDL Cholesterol 55 mg/dL (>40); LDL Cholesterol Calculated 97 mg/dL (<100); Triglycerides 82 mg/dL (<150)
[2024-04-05 13:13] LABS: TSH reflex Free T4 0.89 uIU/mL (0.32-4.0)
[2024-04-05 15:26] LABS: Appearance Urine Turbid; Color Urine Yellow; Glucose Urine UA Negative (Negative); Leukocyte Esterase Urine Trace (Negative); Nitrite Urine Negative (Negative); Specific Gravity - Urine 1.025 (1.005-1.025); UMIC TRIGGER UACC YES; Urine Blood Negative (Negative); Urine Ketones Negative (Negative); Urine Protein Negative (Neg-Trace)
[2024-04-05 16:25] LABS: Bacteria Urine None Seen (None Seen); Hyaline Casts Urine 0-2 /LPF (0-2); RBC Urine 0-2 /HPF (0-2); Squamous Epithelial Cell Urine 0-2 /HPF (0-2); WBC Urine 0-5 /HPF (0-5)
== END 2024-04-05 09:24 | disposition home or self-care (01) ==
LOC: HO.WFDLDS 09:23
PROVIDERS: Visit Provider Nurse Practitioner Family
DX: Z00.00 Encounter for general adult medical examination without abnormal findings (principal); E03.9 Hypothyroidism, unspecified
CPT/HCPCS: 36415; 80061; 81001; 81003; 82306; 84443

== ENCOUNTER 2024-04-12 15:59 | Outpatient (AMB) | payer MEDICARE, SELFPAY ==
--- NOTE | 2024-04-12 16:02 | MHC.PC.OV ---
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 Is last menstrual period known: No Post menopausal: No Patient : No Allergies No Known Allergies Allergy (Verified 04/12/24 16:17) Medication List - Last Reconciled 04/12/24 by Albino Martin CNP atorvastatin 20 mg PO DAILY 90 days cholecalciferol (vitamin D3) 50 mcg PO DAILY levothyroxine 75 mcg PO DAILY 90 days Tobacco use date assessed: 04/12/24 Fall risk assessment: No Falls in past year Last assessed Fall Risk: 04/12/24 Dental Screening Dental Screen Date: 04/12/24 Did you have a dental visit in the last 12 months?: Yes Did you have a dental problem in the last 6 months where you did not have access to dental care?: No Was dental information given to patient?: Patient has dentist HPI HPI Comments History of Present Illness Details 69-year-old female presents for review of recent lab results She admits to taking her medications as prescribed without adverse reactions She notes that she had right total knee replacement in 02/02/2024 at [facility]. She went home the day after surgery. No changes with her routine medications. She is currently doing PT twice weekly and is scheduled until early May. She denies unsteady gait. She has been taking Tylenol as needed. She has history of arthritis of both knees. She is [place] both ears and wears hearing heads. She reports frequent accumulation of wax in her ears and requests assessment of her ears [facility] History Arthritis of both feet Arthritis of both hands Thyroid disease Palpitation Surgical History Hx of cataract removal with insertion of prosthetic lens Family History (Updated 10/20/23 @ 13:20 by AL Freedman) Mother High blood pressure Maternal Grandmother Cardiovascular disease Paternal Grandmother Cardiovascular disease Social History Household Members: None Both parents involved: No Caregiver staying overnight: No Housing: House Are you a primary client care representative to a significant other at home: No Do you presently have visiting nurse or other home services: No 75 years or older and lives alone: No Alcohol intake: current Alcohol intake frequency: holidays/special occasions only Alcohol type: wine and hard liquor Patient Tobacco Use Status: Never used Tobacco e-Cigarette/Vaping Use: Never Used service: No Current occupational status: retired Cognitive needs: No Hearing needs: Yes Vision needs: No Questionnaire PHQ-9 Over the last 2 weeks, how often have you been bothered by any of the following problems? 1. Little interest or pleasure in doing things: not at all 2. Feeling down, depressed, or hopeless: not at all 3. Trouble falling or staying asleep, or sleeping too much: not at all 4. Feeling tired or having little energy: not at all 5. Poor appetite or overeating: not at all 6. Feeling bad about yourself - or that you are a failure or have let yourself or your family down: not at all 7. Trouble concentrating on things, such as reading the newspaper or watching television: not at all 8. Moving or speaking so slowly that other people could have noticed. Or the opposite - being so fidgety or restless that you have been moving around a lot more than usual: not at all 9. Thoughts that you would be better off or of hurting yourself in some way: not at all Total score: 0 Depression Screening Interpretation: Negative Depression Screening Done: Yes Source: Developed by Drs. Vernon Henry, Romana Taylor, Domenico Whitaker and colleagues, with an educational kelton from [employer]. Thrive Questionnaire Date Thrive assessed: 02/24/23 I am a: Patient What is your living situation today?: I have a steady place to live Within the past 12 months, did the food you bought not last and you didn't have the money to get more?: Never true Within the past 12 months, did you worry whether your food would run out before you got money to buy more?: Never true Do you have trouble paying for medicines?: No Do you have trouble getting transportation to medical appointments?: No Do you have trouble paying your heating and electricity bill?: No Do you have trouble taking care of your child, family member or friend?: No Do you have trouble with day-to-day activities such as bathing, preparing meals, shopping, managing finances, etc.?: No Are you currently unemployed and looking for a job?: No Are you interested in more education?: No Please select the resources that you would like help with: None Currently or been in a relationship where the following occur: No concerns reported THRIVE Score: 0 AUDIT C Alcohol Use Questionnaire (AUDIT-C) 1. How often do you have a drink containing alcohol?: 2-3 times a week 2. How many drinks containing alcohol do you have on a typical day when you are drinking?: 1 or 2 3. How often do you have six or more drinks on one occasion?: Never Total Score: 3 ISAAC-7 AMB Questionnaire ISAAC-7 Date ISAAC - 7 assessed: 02/24/23 Feeling nervous, anxious, or on edge: 0 = Not at all Not being able to stop or control worryin = Not at all Worrying too much about different things: 0 = Not at all Trouble relaxin = Not at all Being so restless that it is hard to sit still: 0 = Not at all Becoming easily annoyed or irritable: 0 = Not at all Feeling afraid as if something awful might happen: 0 = Not at all Total ISAAC-7 score (0-4 normal; 5-9 mild; 10-14 moderate; 15-21 severe): 0 Source: Developed by Drs. Vernon Henry, Romana Taylor, Domenico Whitaker and colleagues, with an educational kelton from [employer]. Review of Systems Const Details: Const Denies chills, Denies fatigue, Denies fever(s), Denies headache(s) and Denies weakness ENT Reports as per HPI Card Denies chest pain, Denies lightheadedness, Denies dyspnea and Denies other (Palpitations) Resp Denies cough, Denies dyspnea, Denies wheezing and Denies other ( shortness of breath) GI Denies abdominal pain, Denies melena, Denies hematochezia, Denies change in bowel habits, Denies dyspepsia and Denies nausea Denies hematuria and Denies dysuria Musc Denies abnormal gait, Denies myalgias, Denies arthralgias, Denies numbness and Denies tingling Skin/Breast Denies rash, Denies unusual bruising and Denies wounds Neuro Denies abnormal gait, Denies dizziness, Denies headache(s), Denies memory loss, Denies numbness, Denies Sensory deficit (Neuro), Denies tingling and Denies weakness Psych Denies anxiety, Denies depression, Denies memory loss Endo Denies cold intolerance, Denies fatigue, Denies heat intolerance, Denies polydipsia and Denies polyuria Aller/Immun Denies wheezing Physical exam (Primary Care) Vital Signs: Last Vital Signs Temp 98.3 F 04/12/24 16:06 Pulse 86 04/12/24 16:06 Resp 16 04/12/24 16:06 BP 116/68 04/12/24 16:06 Pulse Ox 97 04/12/24 16:06 Oxygen Delivery Method Room Air 04/12/24 16:06 BMI result Body Mass Index 25.7 Tobacco/Smoking Status: Tobacco use Status Tobacco use date assessed 04/12/24 04/12/24 16:09 Patient Tobacco Use Status Never used Tobacco 04/12/24 16:04 e-Cigarette/Vaping Use Never Used 04/12/24 16:04 PHQ-9: PHQ-9 Score PHQ-9: Total score 0 04/12/24 16:04 Depression Screening Interpretation: Negative Thrive Assessment: Date of Thrive Assessment Date Thrive assessed 02/24/23 04/12/24 16:04 Currently or been in a relationship where the following occur: No concerns reported Const Other: General: no acute distress and well developed Nutritional Appearance: well nourished Orientation/consciousness: patient oriented x3 HENMT Head is normocephalic Right ear canal and TM is normal. Left ear canal with cerumen occluding the TM Nasal turbinates and oropharynx are pink and moist Sinuses are nontender with palpation No auricular or cervical lymphadenopathy Eyes General: appearance normal, both eyes and all related structures Pupils: Equal, round and reactive pupils present EOM: EOMs intact bilaterally Resp Effort & Inspection: normal respiratory effort Auscultation: clear to auscultation bilaterally Cardio Rate: regular rate Rhythm: regular rhythm Heart sounds: S1 normal heart sound present, S2 normal heart sound present, no gallops, no murmurs and no rubs GI Palpation (GI): No Abdominal aortic bruit present, Soft to palpation, nontender, No hepatosplenomegaly present and No Rebound tenderness present Auscultation: normal bowel sounds General: Yes no CVA tenderness Back/Spine/Pelvis Back: no CVA tenderness Extrem General: Yes normal to inspection, No calf tenderness. Moderate, none pitting edema of the right knee and lower leg. Surgical incision of the right knee has completely healed Skin General: warm and dry. Normal skin color. Normal skin turgor Neuro General: patient oriented x3, gait normal and no focal neuro deficit Cranial nerves: Yes Equal, round and reactive pupils present Cognition (Neuro): normal cognition Gait exam (Neuro): Normal gait present Sensory Exam: No Sensory deficit (Neuro) Psych Appearance: grossly normal Affect: normal affect Attitude: cooperative Thought process: Normal thought process present Coding Level of Care Code Est Pt Level 4 (73372) Diagnoses Status post total right knee replacement Z96.651 Impacted cerumen, left ear H61.22 Assessment & Plan Assessment & Plan (1) Status post total right knee replacement: Code(s): Z96.651 - Presence of right artificial knee joint Category: Surgical Plan: She had total right knee replacement in 02/02/2024 and currently doing physical therapy Moderate, none pitting edema of the right knee and lower leg. Surgical incision of the right knee has completely healed Advised to continue to take Tylenol as needed and elevate the right lower extremity to reduce swelling Follow-up with physical therapy and orthopedic surgery as planned Follow-up in 1 month for an extended physical exam or return sooner with symptoms or concerns Verbalized understanding and agreed with treatment plan Recent lab results reviewed; unremarkable findings (2) Impacted cerumen, left ear: Code(s): H61.22 - Impacted cerumen, left ear Category: Medical Plan: Significant amount of cerumen removed from the left ear with ear lavage Left ear canal and TM is normal after cerumen removal Encouraged to follow-up as needed Verbalized understanding and agreed with the treatment plan
[2024-04-12 16:06] VITALS: BP 116/68; PULSE 86; RESP 16; TEMP 36.8; O2SAT 97; BMI 25.7
== END 2024-04-12 16:36 | disposition home or self-care (01) ==
LOC: HO.HMCFM 16:00
PROVIDERS: PCP Nurse Practitioner Family; Visit Provider Nurse Practitioner Family
DX: Z96.651 Presence of right artificial knee joint (principal); H61.22 Impacted cerumen, left ear

== ENCOUNTER → 2024-04-12 15:59 | Outpatient (BNVA) | payer MEDICARE, SELFPAY | PROVIDERS: PCP Nurse Practitioner Family; Visit Provider Nurse Practitioner Family | DX: H61.22 Impacted cerumen, left ear (principal); Z96.651 Presence of right artificial knee joint | CPT/HCPCS: 96127; 99212 ==

== ENCOUNTER 2024-05-11 10:11 | Outpatient (AMB) | payer MEDICARE, SELFPAY ==
--- NOTE | 2024-05-11 10:16 | A.OFFPC_ITS ---
Vital Signs 05/11/24 10:23 Height 5 ft 6 in Weight 159 lb 4 oz BMI 25.7 BP 123/60 Blood Pressure Location Rt brachial Position Sitting Respiration 16 Pulse 86 Pulse Source Pulse Oximeter Temp 97.2 F Temp Source Temporal Artery Scan Pulse Oximetry (%) 96 Oxygen Delivery Method Room Air Intake Visit Reasons: mawv Intake Note: patient here for CPE Photo Mask Processor Required: No Is last menstrual period known: No Post menopausal: No Patient : No Allergies No Known Allergies Allergy (Verified 05/11/24 10:54) Medication List - Last Reconciled 05/11/24 by Albino Martin CNP atorvastatin 20 mg PO DAILY 90 days cholecalciferol (vitamin D3) 50 mcg PO DAILY levothyroxine 75 mcg PO DAILY 90 days Tobacco use date assessed: 05/11/24 Fall risk assessment: No Falls in past year Last assessed Fall Risk: 05/11/24 Dental Screening Dental Screen Date: 05/11/24 Did you have a dental visit in the last 12 months?: Yes Did you have a dental problem in the last 6 months where you did not have access to dental care?: No Was dental information given to patient?: Patient has dentist HPI HPI Comments History of Present Illness Details The patient is a 69-year-old female presenting for a physical examination and wellness visit. She recently underwent a total right knee replacement at the end of January this year and reports that while the knee itself is functioning well, she experiences soreness in the surrounding muscles. She also expresses concern regarding her left knee, which she is attempting to preserve. Her medical history is significant for hyperlipidemia, hypothyroidism, vitamin D deficiency, and osteoporosis, with a recorded bone density T-score of negative 2.7. She has a history of taking Fosamax for osteoporosis for three years but discontinued two and a half years ago due to dental work requirements. Her treatment regimen includes taking atorvastatin, vitamin D3, and levothyroxine. She has maintained routine check-ups, with her last colon cancer screening via Cologuard approximately two years ago and a bone density test earlier this month showing continued osteoporosis. An eye examination is scheduled for June 2024. No recent abnormal findings from recent lab work. Social History - Does not smoke or use recreational tae gs. - Occasionally consumes alcohol, approxi mately one cordial twice a week. - Actively attempts dietary improvements , currently on a meal plan for dinner. - Exercises as tolerated, primarily walk ing and performing balance exercises. - Reports satisfactory sleep patterns wi th some disturbance post-surgery. - Lives an independent lifestyle, mindfu l of her activity limitations due to knee surgeries. Health Maintenance - Most recent bone density test on Octob er 2022, indicating osteoporosis. - She has not had a mammogram in several years due to history of dense tissues; declines mammogram at this time. - Shingles vaccine received in 2019. - Pneumonia, COVID, and flu vaccinations are updated. - Last dental cleaning conducted in [facility] y March 2024. - Last eye exam was over a year ago. [facility] eye appointment for June 2024. - Routine Cologuard test last performed two years ago; noted to be updated. - Last Pap smear test reportedly 5 to 10 years ago but declines further testing. PFS Medical History Arthritis of both feet Arthritis of both hands Thyroid disease Palpitation Surgical History Hx of cataract removal with insertion of prosthetic lens Family History (Updated 10/20/23 @ 13:20 by AL Freedman) Mother High blood pressure Maternal Grandmother Cardiovascular disease Paternal Grandmother Cardiovascular disease Social History Household Members: None Both parents involved: No Caregiver staying overnight: No Housing: House Are you a primary assisted living care manager to a significant other at home: No Do you presently have visiting nurse or other home services: No 75 years or older and lives alone: No Alcohol intake: current Alcohol intake frequency: holidays/special occasions only Alcohol type: wine and hard liquor Patient Tobacco Use Status: Never used Tobacco e-Cigarette/Vaping Use: Never Used service: No Current occupational status: retired Cognitive needs: No Hearing needs: Yes Vision needs: No Questionnaire PHQ-9 Over the last 2 weeks, how often have you been bothered by any of the following problems? 1. Little interest or pleasure in doing things: not at all 2. Feeling down, depressed, or hopeless: not at all 3. Trouble falling or staying asleep, or sleeping too much: not at all 4. Feeling tired or having little energy: not at all 5. Poor appetite or overeating: not at all 6. Feeling bad about yourself - or that you are a failure or have let yourself or your family down: not at all 7. Trouble concentrating on things, such as reading the newspaper or watching television: not at all 8. Moving or speaking so slowly that other people could have noticed. Or the opposite - being so fidgety or restless that you have been moving around a lot more than usual: not at all 9. Thoughts that you would be better off or of hurting yourself in some way: not at all Total score: 0 Depression Screening Interpretation: Negative Depression Screening Done: Yes 72211 - PHQ-9 Billing: Yes Source: Developed by Drs. Vernon Henry, Romana Taylor, Domenico Whitaker and colleagues, with an educational kelton from [employer]. Thrive Questionnaire Date Thrive assessed: 05/11/24 I am a: Patient What is your living situation today?: I have a steady place to live Within the past 12 months, did the food you bought not last and you didn't have the money to get more?: Never true Within the past 12 months, did you worry whether your food would run out before you got money to buy more?: Never true Do you have trouble paying for medicines?: No Do you have trouble getting transportation to medical appointments?: No Do you have trouble paying your heating and electricity bill?: No Do you have trouble taking care of your child, family member or friend?: No Do you have trouble with day-to-day activities such as bathing, preparing meals, shopping, managing finances, etc.?: No Are you currently unemployed and looking for a job?: No Are you interested in more education?: No Please select the resources that you would like help with: None Currently or been in a relationship where the following occur: No concerns reported THRIVE Score: 0 AUDIT C Alcohol Use Questionnaire (AUDIT-C) 1. How often do you have a drink containing alcohol?: 2-3 times a week 2. How many drinks containing alcohol do you have on a typical day when you are drinking?: 1 or 2 3. How often do you have six or more drinks on one occasion?: Never Total Score: 3 Score Reviewed/Action Taken: Yes ISAAC-7 AMB Questionnaire ISAAC-7 Date ISAAC - 7 assessed: 05/11/24 Feeling nervous, anxious, or on edge: 0 = Not at all Not being able to stop or control worryin = Not at all Worrying too much about different things: 0 = Not at all Trouble relaxin = Not at all Being so restless that it is hard to sit still: 0 = Not at all Becoming easily annoyed or irritable: 0 = Not at all Feeling afraid as if something awful might happen: 0 = Not at all Total ISAAC-7 score (0-4 normal; 5-9 mild; 10-14 moderate; 15-21 severe): 0 Source: Developed by Drs. Vernon Henry, Romana Taylor, Domenico Whitaker and colleagues, with an educational kelton from [employer]. ISAAC-7 Assessment Billing ISAAC-7 Assessment Tool: ISAAC-7 Assessment 55541 Review of Systems Const Details: Denies chills, Denies fatigue, Denies fever(s), Denies headache(s) and Denies weakness HEENT Denies change in vision, Denies dizziness, Denies headache(s), Denies hearing loss, Denies nasal congestion, Denies sinus pain, Denies sinus pressure and Denies sore throat Card Denies chest pain, Denies lightheadedness, Denies dyspnea and Denies other (palpitations) Resp Denies cough, Denies dyspnea and Denies wheezing GI Denies abdominal pain, Denies melena, Denies hematochezia, Denies change in bowel habits, Denies dyspepsia and Denies nausea Denies hematuria and Denies dysuria Musc Reports soreness in the muscles around the right knee; denies current knee joint pain, Denies abnormal gait, Denies myalgias, Denies arthralgias, Denies numbness and Denies tingling Skin/Breast Denies rash, Denies unusual bruising and Denies wounds Neuro Denies abnormal gait, Denies dizziness, Denies headache(s), Denies memory loss, Denies numbness, Denies Sensory deficit (Neuro), Denies tingling and Denies weakness Psych Denies anxiety, Denies depression and Denies memory loss Endo Denies cold intolerance, Denies fatigue, Denies heat intolerance, Denies polydipsia and Denies polyuria Alejandro/Lymph Denies easy bleeding and Denies easy bruising Aller/Immun Denies wheezing Physical exam (Primary Care) Vital Signs: Last Vital Signs Temp 97.2 F 05/11/24 10:23 Pulse 86 05/11/24 10:23 Resp 16 05/11/24 10:23 BP 123/60 05/11/24 10:23 Pulse Ox 96 05/11/24 10:23 Oxygen Delivery Method Room Air 05/11/24 10:23 BMI result Body Mass Index 25.7 Tobacco/Smoking Status: Tobacco use Status Tobacco use date assessed 05/11/24 05/11/24 10:22 Patient Tobacco Use Status Never used Tobacco 05/11/24 10:18 e-Cigarette/Vaping Use Never Used 05/11/24 10:18 PHQ-9: PHQ-9 Score PHQ-9: Total score 0 05/11/24 15:18 Depression Screening Interpretation: Negative Thrive Assessment: Date of Thrive Assessment Date Thrive assessed 05/11/24 05/11/24 10:22 Currently or been in a relationship where the following occur: No concerns reported Const Other: General: no acute distress, well developed, alert and awake Nutritional Appearance: well nourished Orientation/consciousness: patient oriented x3 HENMT Head: Yes normocephalic and Yes atraumatic Ears: hearing grossly normal bilaterally and TM's normal bilaterally General nose exam: Normal external nose present and Normal nares present Mouth: Normal oral and palatal mucosa present and moist mucous membranes Teeth and gingiva: dentition normal Throat: Yes oropharynx normal Eyes Pupils: Equal, round and reactive pupils present and Pupil accommodation reflex normal EOM: EOMs intact bilaterally Neck Neck: Yes normal visual inspection, Yes no lymphadenopathy and Yes trachea midline Thyroid: Thyroid normal Carotids: no bruits Lymphatic: no lymphadenopathy noted Chest Chest palpation & inspection: normal inspection of the chest Resp Effort & Inspection: normal respiratory effort Auscultation: clear to auscultation bilaterally Cardio Rate: regular rate Rhythm: regular rhythm Heart sounds: S1 normal heart sound present, S2 normal heart sound present, no gallops, no murmurs and no rubs Bruits: no abdominal aortic bruits and no carotid bruits GI Palpation (GI): No Abdominal aortic bruit present, Soft to palpation, nontender, No hepatosplenomegaly present and No Rebound tenderness present Auscultation: normal bowel sounds General: Yes no CVA tenderness Back/Spine/Pelvis Back: no CVA tenderness Cervical Spine: cervical ROM normal and No Cervical spine tenderness Thoracic/Lumbar Spine: thoraco-lumbar ROM normal, No pain with thoraco-lumbar ROM, No thoracic spinal tenderness and No lumbar spinal tenderness Skin General: warm and dry. Normal skin color. Normal skin turgor Lesions: no lesions Rashes: no rashes Trauma: no lacerations or abrasions Wounds: no wounds Nails: normal Neuro General: patient oriented x3, gait normal and CN's II-XI intact bilaterally Cranial nerves: Yes Equal, round and reactive pupils present Cognition (Neuro): normal cognition Gait exam (Neuro): Normal gait present Motor exam (neuro): 5/5 motor strength present throughout Sensory Exam: No Sensory deficit (Neuro) Deep tendon reflexes (DTR's): Right patellar reflex intensity grade: 2+ and Left patellar reflex intensity grade: 2+ Extrem Right knee stiffness and pain with palpation around the muscles noted Psych Appearance: grossly normal Affect: normal affect Attitude: cooperative Thought process: Normal thought process present Coding Level of Care Code Est Pt Prev Care >65y(41646) Diagnoses Normal physical examination, routine Z00.00 Status post total right knee replacement Z96.651 Osteoporosis M81.0 Encounter type: initial encounter Osteoporosis type: unspecified Colon cancer screening Z12.11 Additional Codes ISAAC-7 Assessment Billing - ISAAC-7 Assessment Tool: ISAAC-7 Assessment 36257 ([id number]) PHQ-9 - 52325 - PHQ-9 Billing: Yes ([id number]) Assessment & Plan Assessment & Plan (1) Normal physical examination, routine: Code(s): Z00.00 - Encounter for general adult medical examination without abnormal findings Category: Medical Plan: No significant functional limitation noted. (2) Status post total right knee replacement: Code(s): Z96.651 - Presence of right artificial knee joint Category: Surgical Plan: Take Tylenol or Ibuprofen as needed for pain or discomfort. May also apply warm or cool commpresses as needed. Encourage adherence to physical therapy exercises and protection of the left knee. (3) Osteoporosis: Code(s): M81.0 - Age-related osteoporosis without current pathological fracture Category: Medical Qualifiers: Encounter type: initial encounter Osteoporosis type: unspecified Plan: Refer to endocrinology for further management of osteoporosis. (4) Colon cancer screening: Code(s): Z12.11 - Encounter for screening for malignant neoplasm of colon Category: Medical Plan: Order Cologuard for colorectal cancer screening. Plan We discussed the patient's ongoing muscle soreness following her knee replacement surgery, and she was advised that rehabilitation exercises will aid recovery. I recommended a referral to endocrinology for further osteoporotic management because of the bone density results, potentially considering alternative treatments due to her discontinuation of Fosamax. Cologuard test will be ordered as it's been two years since the last screening. I addressed concerns about potential adjustments to her medication due to future insurance coverage changes, confirming that we can discuss alternatives as needed. We reviewed the importance of continued exercise, diet management, and routine screenings to maintain health. I will have the patient follow up in six months or sooner if needed. Orders: Orders Lipid Panel 6 Months E78.5 - Hyperlipidemia, unspecified Vitamin D 25-OH Total 6 Months E55.9 - Vitamin D deficiency, unspecified TSH reflex Free T4 6 Months Z00.00 - Encounter for general adult medical examination without abnormal findings Referrals Cologuard Test Z12.11 - Encounter for screening for malignant neoplasm of colon, Z12.12 - Encounter for screening for malignant neoplasm of rectum Endocrinology Referral M81.0 - Age-related osteoporosis without current pathological fracture Patient Instructions: - Adhere to the prescribed medication regimen. - Pursue endocrine consultation for osteoporosis management. - Complete Cologuard test upon receipt. - Continue physical therapy exercises as discussed. - Schedule any overdue health screenings as advised. - Perform fasting blood work, fast 10-12 hours, may drink water, before her next visit. - Follow up in six months for hyperlipidemia, hypothyroidism, and vitamin D deficiency or sooner if new concerns arise. Patient was informed and verbally consented to the use of an ambient scribe for clinic note documentation during this visit.
[2024-05-11 10:23] VITALS: BP 123/60; PULSE 86; RESP 16; TEMP 36.2; O2SAT 96; BMI 25.7
--- OUTSIDE RECORDS SUMMARY | 2024-05-17 17:28 | XMS_ITS | Continuity of Care Document ---
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 Name Role Phone Eliazar Tucker OD Unavailable Unavailable Allergies, Adverse Reactions, Alerts Substance Reaction Status Criticality No Known Allergies Active No Inform ation Medications Medication Instructions Dosage Effective Dates (start - stop) Status Comments levothyroxine 75 mcg capsule take 1 capsule by oral route every day 75 MCG - Active atorvastatin 20 mg tablet take 1 tablet by oral route every day 20 MG - Active Procedures Procedure Date Ophth Serv: Med Exam; Comp Est REFRACTION OCT RNFL/HRT Visual Field Comp Diagnostic Only Offic/outpt E&m Estab Low-mod 2 Visual Field Comp No Visual Field Comp Offic/outpt E&m Estab Low-mod 2 Visual Field Comp OCT RNFL/HRT Pachymetry No Visual Field Comp OCT RNFL/HRT Ophth Serv: Med Exam; Comp New Advance Directives Directive Yes / No Effective Date File Name No Information Encounters Encounter Description Practice Location Reason(s) For Visit Diagnoses Date Provider Providers Copied on Encounter [facility], [address] [place], [place] [address], [id number], [facility] BRN No Information Sep-0 3 Garrett OD Eliazar. [facility] , [place], [place], [address] [place] [address]. tel:[phone] [facility], [address] [place] [address], [place], [address] [place] [address], [facility] BRWN glaucoma suspect (chief complaint) Open angle with borderline findings and low glaucoma risk in both eyesPresence of intraocular lensOther secondary cataract, right eyePosterior vitreous detachment of left eyePresbyopia 3 Garrett OD Eliazar. [address] [place] [address], [place], [address] [place] [address] , . [phone] Referring Provider: Eliazar Tucker OD A, [address] [place] [address] , [place], [address] [place] [address] . tel:[phone] [place] [address], [place], [address] [place] [address], [facility] BR Open angle with borderline findings, high risk, bilateral Jul-0 3 Garrett OD Eliazar. [address] [place] [address], [place], [address] [place] [address] , . [phone] Referring Provider: Eliazar Tucker OD A, [address] [place] [address] , [place], [address] [place] [address] . tel:[phone] Offic/outpt E&m Estab Low-mod [facility], [address] [place] [address], [place], [address] [place] [address], [facility], [place] Glaucoma (chief complaint)F loater (chief complaint) Open angle with borderline findings, high risk, bilateralPresenc e of intraocular lensOther secondary cataract, right eyePosterior vitreous detachment of left eye Mar-0 2 Garrett OD Eliazar. [facility] , [place], [address] [place] [address]. [phone] Referring Provider: Eliazar Tucker OD A, [facility] , [place], [address] [place] [address] . tel:[phone] [facility], [address] [place] [address], [place], [address] [place] [address] [facility] BR Open angle with borderline findings, high risk, bilateral Sep- 2 [place] OD Eliazar. [address] [facility] [address], [place], [address] [place] [address]. [phone] Referring Provider: Eliazar Tucker OD A, [address] [facility] [address], [place], [address] . tel:[phone] Offic/outpt E&m Estab Low-mod [facility], [address] [place] [address], [place], [address] [place] [address] [facility] BR Follow Up of glaucoma suspect (chief complaint) Open angle with borderline findings, high risk, bilateralPresenc e of intraocular lens Aug- 2 [place] OD Eliazar. [address] [place] [address] [address], [place], [address] [place] [address] , . [phone] Referring Provider: Eliazar Tucker OD A, [address] [place] [address] 230, [place], [address] . tel:[phone] [facility], [address] [place] [address], [place], [address] [place] [address], [facility] BR Open angle with borderline findings and low glaucoma risk in both eyes Aug- 0 2 [place] OD Eliazar. [address] [place] [address], [place], [address] [place] [address] , . [phone] Referring Provider: Yovany Galindo DO, [address] [facility], [place], [address] . tel:[phone] [facility], [address] [place] [address], [place], [phone], [facility] BR Glaucoma suspect evaluation (chief complaint) Open angle with borderline findings and low glaucoma risk in both eyesPresence of intraocular lensPosterior vitreous detachment of both eyesOther secondary cataract, right eye 2 Garrett OD Eliazar. [address], [place], [place], [id number] , . tel:[phone] Referring Provider: Yovany Galindo DO [address] [place], [address] . 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) [employer] Medicare Advantage Plans CI [id number] Social History Type Description Quantity Date Captured Comments Alcohol Use Details Unknown Caffeine Use Details Unknown Tobacco Use Status No Information Smoking Status No Information Sex Female Chief Complaint And Reason For Visit No Information Reason For Referral Reason For Referral No Information Plan Of Treatment Date Type Action Status Referral Ordered: Yovany Galindo DO -Family Medicine (related to Other secondary cataract, right eye) ordered Referral Referred To: Yovany Galindo DO [address] [place], [place], [phone] Ordered: Referrals: Family Medicine. Yovany Galindo DO. Assume care ordered History Of Present Illness Encounter Date Complaint History Of Prese nt Illness glaucoma suspect The 67 year old female presents for her 1 year followup for being a glaucoma suspect in both eyes. The patient would like to go over her visual field testing. The patient reports no changes to her vision over the last year. Glaucoma Patient presents for a glaucoma pressure check in both eyes. Patient denies any changes to her vision. Floater Patient presents for a evaluation for a floater in the left eye. Patient states she noticed it a couple days ago. She states it comes and goes, denies any flashes of light or a curtain across her vision. Follow Up of glaucoma suspect Th e patient is here for a follow up of glaucoma suspect after having her visual field testing. Glaucoma suspect evaluation Kristy ent presents for an evaluation of being a glaucoma suspect, Patient denies any glaucoma treatment states her pressure has been around 15-17, Patient states her eye Dr was monitoring her every 6 months with visual block and pictures of the back of her eyes, Patients last exam was in october of 2020 Functional Status Date Functional Assessmen t No Information Instructions Date Instruction Additional Infor joshua Return for 1 year (H VF/RNFL-GCA) prior to (DFE) Related to Open angle with borderline findings and low glaucoma risk in both eyes Impression/Plan Related to Presb yopia Impression/Plan Related to Other secondary cataract, right eye Impression/Plan Related to Poste rior vitreous detachment of left eye Impression/Plan Related to Open angle with borderline findings and low glaucoma risk in both eyes Impression/Plan Related to Prese nce of intraocular lens Oct Return for 4-5 month (HVF/RNFL) prior to (DFE) Related to Open angle with borderline findings, high risk, bilateral Oct- Impression/Plan Related to Poste rior vitreous detachment of left eye Oct- Impression/Plan Related to Open angle with borderline findings, high risk, bilateral Oct- Impression/Plan Related to Prese nce of intraocular lens Impression/Plan Related to Other secondary cataract, right eye Return in 1 year for HVF/RNFL prior to dilated exam with Dr. Tucker. Related to Open angle with borderline findings, high risk, bilateral Impression/Plan Related to Open angle with borderline findings, high risk, bilateral Impression/Plan Related to Prese nce of intraocular lens Return to clinic in 1-[address] Eliazar Tucker OD for HVF/RNFL prior to IOP check Related to Open angle with borderline findings and low glaucoma risk in both eyes Impression/Plan Related to Other secondary cataract, right eye Impression/Plan Related to Open angle with borderline findings and low glaucoma risk in both eyes Impression/Plan Related to Prese nce of intraocular lens Impression/Plan Related to Poste rior vitreous detachment of both eyes Assessments Type Assessment Date No Information Patient Care Teams Name Effective Dates (start - stop) Status Members No Information
== END 2024-05-11 11:14 | disposition home or self-care (01) ==
PROVIDERS: PCP Nurse Practitioner Family; Visit Provider Nurse Practitioner Family
DX: Z00.00 Encounter for general adult medical examination without abnormal findings (principal); Z96.651 Presence of right artificial knee joint; M81.0 Age-related osteoporosis without current pathological fracture; Z12.11 Encounter for screening for malignant neoplasm of colon

== ENCOUNTER → 2024-05-11 10:11 | Outpatient (BNVA) | payer MEDICARE, SELFPAY | PROVIDERS: PCP Nurse Practitioner Family; Visit Provider Nurse Practitioner Family | DX: Z00.00 Encounter for general adult medical examination without abnormal findings (principal); M81.0 Age-related osteoporosis without current pathological fracture; Z96.651 Presence of right artificial knee joint | CPT/HCPCS: 96127; 99397 ==

== ENCOUNTER 2024-05-23 13:15 | Outpatient (AMB) | payer MEDICARE, SELFPAY ==
--- OUTSIDE RECORDS SUMMARY | 2024-05-23 13:17 | XMS_ITS | Continuity of Care Document ---
Author Organization [facility] s Address [address] [address] Care Team Providers Care Instructor Painting Name Role Phone Eliazar Tucker OD Unavailable [...] Diagnoses Date Provider Providers Copied on Encounter [facility], [address] [place], [place] [address], [id number], [facility] BRN No Information Sep-0 3 Garrett OD Eliazar. [facility] , [place], [place], [address] [place] [address]. tel:[phone] [facility], [address] [place] [address], [place], [address] [place] [address], [facility] BRWN glaucoma suspect (chief complaint) Open angle with borderline findings and low glaucoma risk in both eyesPresence of intraocular lensOther secondary cataract, right eyePosterior vitreous detachment of left eyePresbyopia 3 Garrett OD Eliazar. [address] [place] [address], [place], [address] [place] [address] , . [phone] Referring Provider: Eliazar Tucker OD A, [address] [place] [address] , [place], [address] [place] [address] . tel:[phone] [place] [address], [place], [address] [place] [address], [facility] BR Open angle with borderline findings, high risk, bilateral Jul-0 3 Garrett OD Eliazar. [address] [place] [address], [place], [address] [place] [address] , . [phone] Referring Provider: Eliazar Tucker OD A, [address] [place] [address] , [place], [address] [place] [address] . tel:[phone] Offic/outpt E&m Estab Low-mod [facility], [address] [place] [address], [place], [address] [place] [address], [facility], [place] Glaucoma (chief complaint)F loater (chief complaint) Open angle with borderline findings, high risk, bilateralPresenc e of intraocular lensOther secondary cataract, right eyePosterior vitreous detachment of left eye Mar-0 2 Garrett OD Eliazar. [facility] , [place], [address] [place] [address]. [phone] Referring Provider: Eliazar Tucker OD A, [facility] , [place], [address] [place] [address] . tel:[phone] [facility], [address] [place] [address], [place], [address] [place] [address] [facility] BR Open angle with borderline findings, high risk, bilateral Sep- 2 [place] OD Eliazar. [address] [facility] [address], [place], [address] [place] [address]. [phone] Referring Provider: Eliazar Tucker OD A, [address] [facility] [address], [place], [address] . tel:[phone] Offic/outpt E&m Estab Low-mod [facility], [address] [place] [address], [place], [address] [place] [address] [facility] BR Follow Up of glaucoma suspect (chief complaint) Open angle with borderline findings, high risk, bilateralPresenc e of intraocular lens Aug- 2 [place] OD Eliazar. [address] [place] [address], [place], [address] [place] [address] , . [phone] Referring Provider: Eliazar Tucker OD A, [address] [place] [address] 230, [place], [address] . tel:[phone] [facility], [address] [place] [address], [place], [address] [place] [address], [facility] BR Open angle with borderline findings and low glaucoma risk in both eyes Aug- 0 2 [place] OD Eliazar. [address] [place] [address], [place], [address] [place] [address] , . [phone] Referring Provider: Yovany Galindo DO, [address] [facility], [place], [address] . tel:[phone] [facility], [address] [place] [address], [place], [id number], [facility] BR Glaucoma suspect evaluation (chief complaint) Open angle with borderline findings and low glaucoma risk in both eyesPresence of intraocular lensPosterior vitreous detachment of both eyesOther secondary cataract, right eye 2 Garrett OD Eliazar. [address], [place], [place], [id number] , . tel:[phone] Referring Provider: Yovany Galindo DO [address] [place], [address] . tel:[phone] Family History Family Member Type Diagnosis Age At Onset Father Problem (finding) Maternal aunt Problem Glaucoma Mother Problem (finding) degenerative disorder o f macula Payers Payer name Insurance type Covered alliance party ID Emely sales(s) ZZZAARP Medicare Advantage Plans CI [id number] Social History Type Description Quantity Date [...] Referral Referred To: Yovany Galindo DO [address] [place], [place], [phone] Ordered: Referrals: Family Medicine. Yovany Galindo DO. [...] to her vision over the last year. Floater Patient presents for a evaluation for a floater in the left eye. Patient states she noticed it a couple days ago. She states it comes and goes, denies any flashes of light or a curtain across her vision. Glaucoma Patient presents for a glaucoma pressure check in both eyes. Patient denies any changes to her vision. Follow Up of glaucoma suspect [...]
--- NOTE | 2024-05-23 13:22 | A.OFFVIS_ITS ---
Vital Signs 05/23/24 13:28 Height 5 ft 6.09 in Weight 161 lb 2.526 oz BMI 25.9 BP 114/64 Blood Pressure Location Rt brachial Position Sitting Pulse 92 Pulse Source Pulse Oximeter Intake Visit Reasons: Age-related osteoporosis without current pathologi Intake Note: New patient internally referred PCP for Age-related Osteoporosis w/o current pathological. Esthetics Instructor Required: No Accompanied by: Self / Same As Patient Allergies No Known Allergies Allergy (Verified 05/23/24 13:29) Medication List - Last Reconciled 05/23/24 by Vernon Cheatham MD acetaminophen (Tylenol Extra Strength) 500 mg PO Q6H PRN atorvastatin 20 mg PO DAILY 90 days cholecalciferol (vitamin D3) 50 mcg PO DAILY levothyroxine 75 mcg PO DAILY 90 days HPI Comments Details: 69 YO Female with is seen in consultation at the request of PCP for Osteoporosis. First diagnosed in few yrs ago .Has not seen specialist before Received treatment in the past with alendronate, from to 1001-3349 for 3 years. Tolerated treatment well without complication. No history of pathologic fracture or ONJ. Has several servings of dietary calcium per day in the form of cheese, broccoli , ice cream , milk . Not Takes Calcium supplement [] mg daily in divided doses. Takes 2000 IU of Vitamin D daily. Denies ever using PPI, anticoagulant, antiepileptic or glucocorticoid medication. Does weight bearing exercise 2 days per week in the form of knee rehab . 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 UTD on dental cleanings and sees dentist every 6 months. No planned upcoming dental work or extractions. DXA dated 03/30: FINDINGS: LEFT FEMUR, NECK: BMD 0.704 g/cm2, Z-score -1.0, T-score -2.4, osteopenia. LEFT FEMUR, TOTAL: BMD 0.669 g/cm2, Z-score -1.5, T-score -2.7, osteoporosis. AP SPINE L1-L4: BMD 1.028 g/cm2, Z-score 0.2, T-score -1.3, osteopenia. IDENTIFIED RISK FACTORS: Height loss, low calcium intake, osteoporosis, menopause. HISTORY OF FRACTURE: None listed. MEDICATIONS: Bisphosphonates. MM/XR DEXA axial skeleton IMPRESSION: 1. DIAGNOSIS: Osteoporosis based on the lowest T-score value of -2.7 in the total femur applying World Health Organization criteria. Labs: [facility] Medical History (Updated 05/11/24 @ 11:27 by Albino Martin CNP) Arthritis of both feet Arthritis of both hands Thyroid disease Palpitation Surgical History Hx of total knee replacement Hx of cataract removal with insertion of prosthetic lens Family History Mother High blood pressure Maternal Grandmother Cardiovascular disease Paternal Grandmother Cardiovascular disease Social History Household Members: None Both parents involved: No Caregiver staying overnight: No Housing: House Are you a primary behavioral health care coordinator to a significant other at home: No Do you presently have visiting nurse or other home services: No 75 years or older and lives alone: No Alcohol intake: current Alcohol intake frequency: holidays/special occasions only Alcohol type: wine and hard liquor Patient Tobacco Use Status: Never used Tobacco e-Cigarette/Vaping Use: Never Used service: No Current occupational status: retired Cognitive needs: No Hearing needs: Yes Vision needs: No Physical Exam Vital Signs: Last Vital Signs Pulse 92 05/23/24 13:28 BP 114/64 05/23/24 13:28 BMI result Body Mass Index 25.9 There are no Cushingoid features. Absence of blue sclera. Absence of kyphosis. Thyroid gland is of nl size and weighs 15 gms. There are no thyroid nodules palpated. Lungs CTA. Heart S1 S2 Reg R/R Abdominal exam benign. Muscle strength 5/5 . Examination of spine reveals absence of tenderness on palpation Assessment & Plan Assessment & Plan (1) Osteoporosis: Code(s): M81.0 - Age-related osteoporosis without current pathological fracture Category: Medical Qualifiers: Osteoporosis type: unspecified Encounter type: initial encounter Plan: This 69-year-old white female with a history of osteoporosis. Was treated with the alendronate for 3 years. Rule out secondary causes Will complete secondary workup by checking 24 hour urine for calcium and creatinine, SPEP, urine immunofixation, phosphorus level. Continue vitamin-D supplementation ensure 1200 mg calcium per day. Will also check urine NTX. Assuming secondary workup was negative, if urine NTX is suppressed might continue calcium and vitamin-D supplementation. If urine NTX is elevated, may consider reinitiation of bisphosphonate Orders: Orders Creatinine, 24 Hr Group Today M81.0 - Age-related osteoporosis without current pathological fracture Immunofixation, Random Urine Today M81.0 - Age-related osteoporosis without current pathological fracture Collagen Crosslinks NTX Today M81.0 - Age-related osteoporosis without current pathological fracture Phosphorus Today M81.0 - Age-related osteoporosis without current pathological fracture Calcium, 24 Hr Ur Today M81.0 - Age-related osteoporosis without current pathological fracture Protein Electrophoresis, Serum Today M81.0 - Age-related osteoporosis without current pathological fracture Coding Level of Care Code New Pt Level 4 (96077) Diagnoses Osteoporosis M81.0 Osteoporosis type: unspecified Encounter type: initial encounter
[2024-05-23 13:28] VITALS: BP 114/64; PULSE 92; BMI 25.9
== END 2024-05-23 14:30 | disposition home or self-care (01) ==
PROVIDERS: PCP Nurse Practitioner Family; Visit Provider Internal Medicine Endocrinology, Diabetes & Metabolism
DX: M81.0 Age-related osteoporosis without current pathological fracture (principal)
CPT/HCPCS: 99204

== ENCOUNTER → 2024-05-23 13:15 | Outpatient (BNVA) | payer MEDICARE, SELFPAY | PROVIDERS: PCP Nurse Practitioner Family; Visit Provider Internal Medicine Endocrinology, Diabetes & Metabolism | DX: M81.0 Age-related osteoporosis without current pathological fracture (principal); E55.9 Vitamin D deficiency, unspecified; Z78.0 Asymptomatic menopausal state; Z79.83 Long term (current) use of bisphosphonates | CPT/HCPCS: 99202 ==

== ENCOUNTER 2024-07-08 11:23 | Outpatient (REF) | payer MEDICARE, SELFPAY ==
--- OUTSIDE RECORDS SUMMARY | 2024-07-08 12:08 | XMS_ITS | Continuity of Care Document ---
Author Organization [facility] s Address [address] [address] Care Team Providers Care Pantry Steward/Stewardess Name Role Phone Elizaar Tucker OD Unavailable Unavailable Allergies, Adverse Reactions, [...] Diagnoses Date Provider Providers Copied on Encounter [facility], [address] [place] [address], [id number], [facility] BRN No Information Sep-0 3 [place] OD Eliazar. [facility] , [place], [place], [address] [place] [address]. tel:[phone] [facility], [address] [place] [address], [place], [address] [place] [address], [facility] BRWN glaucoma suspect (chief complaint) Open angle with borderline findings and low glaucoma risk in both eyesPresence of intraocular lensOther secondary cataract, right eyePosterior vitreous detachment of left eyePresbyopia 3 [place] OD Eliazar. [address] [place] [address], [place], [address] [place] [address] , . [phone] Referring Provider: Eliazar Tucker OD A, [address] [place] [address] , [place], [place], [address] [place] [address] . tel:[phone] [place] [address], [place], [address] [place] [address], [facility] BR Open angle with borderline findings, high risk, bilateral Jul-0 3 [place] OD Eliazar. [address] [place] [address], [place], [address] [place] [address] , . [phone] Referring Provider: Eliazar Tucker OD A, [address] [place] [address] , [place], [address] [place] [address] . tel:[phone] Offic/outpt E&m Estab Low-mod [facility], [address] [place] [address], [place], [address] [place] [address], [facility], [place] Glaucoma (chief complaint)F loater (chief complaint) Open angle with borderline findings, high risk, bilateralPresenc e of intraocular lensOther secondary cataract, right eyePosterior vitreous detachment of left eye Mar-0 2 [place] OD Eliazar. [facility] , [place], [place], [address] [place] [address]. [phone] Referring Provider: Eliazar Tucker OD A, [facility] , [place], [address] [place] [address] . tel:[phone] [facility], [address] [place] [address], [place], [address] [place] [address] [facility] BR Open angle with borderline findings, high risk, bilateral Sep- 2 [place] OD Eliazar. [address] [facility] [address], [place], [address] [place] [address]. [phone] Referring Provider: Eliazar Tucker OD A, [address] [facility] [address], [place], [address] . tel:[phone] Offic/outpt E&m Estab Low-mod [facility], [address] [place] [address], [place], [address] [place] [address] [facility] BR Follow Up of glaucoma suspect (chief complaint) Open angle with borderline findings, high risk, bilateralPresenc e of intraocular lens Aug- 2 [place] OD Eliazar. [address] [place] [address] 230, [place], [address] [place] [address] , . [phone] Referring Provider: Eliazar Tucker OD A, [address] [place] [address] 230, [place], [address] . tel:[phone] [facility], [address] [place] [address], [place], [address] [place] [address], [facility] BR Open angle with borderline findings and low glaucoma risk in both eyes Aug- 0 2 [place] OD Eliazar. [address] [place] [address], [place], [address] [place] [address] , . [phone] Referring Provider: Yovany Galindo DO, [address] [facility], [place], [address] . tel:[phone] [facility], [address] [place] [address], [place], [id number], [facility] BR Glaucoma suspect evaluation (chief complaint) Open angle with borderline findings and low glaucoma risk in both eyesPresence of intraocular lensPosterior vitreous detachment of both eyesOther secondary cataract, right eye 2 [place] OD Eliazar. [address], [place], [place], [id number] , . tel:[phone] Referring Provider: Yovany Galindo DO [address] [place], [address] . tel:[phone] Family History Family Member Type Diagnosis Age At Onset Mother Problem (finding) degenerative disorder o f macula Maternal aunt Problem Glaucoma Father Problem (finding) Payers Payer name Insurance type Covered alliance party ID Authorrafael sales(s) [id number] Medicare Advantage Plans [id number] Social History Type Description Quantity Date [...] ordered Referral Referred To: Yovany Galindo DO [facility] [place], [place], [id number] Ordered: Referrals: Family Medicine. Yovany Galindo DO. [...]
--- OUTSIDE RECORDS SUMMARY | 2024-07-08 12:09 | XMS_ITS | Data Portability ---
Author Organization [facility] Address [address] [place] [address] Care Team Providers Care Client Services Associate Name Role Phone VIKY MCLEOD Primary Care Provider Assessment Encounter Date Assessment Date Assessment LastModified by Organization Details LastModified Time 09/09/2022 09/09/2022 Await holter results. She is moving out of state within the next 2 weeks, so she will have to be notified via phone of the results. I did discuss with her that the results will go back to her PCP since they were the ordering provider. [email or web address] Not available 09/09/2022 13:35:40 Plan of Treatment Reminders Order Date Submit Date Provider Last Modified By Organization Details Last Modified Time Details Appointments None recorded. Lab CBC w/ auto diff 2021 023 [facility], [address] [place], [address], 3 05:08:35 amylase + lipase, serum 2022 023 [facility], [address] [place], [address], 3 05:08:39 gamma-glut amyl transferas e (ggt), serum 2022 023 [facility], [address] [place], [address], 3 05:08:40 lipid panel, serum 2021 023 [facility], [address] [place], [address], 3 05:08:37 CMP, serum or plasma 2021 023 [facility], [address] [place], [address], 3 05:08:36 TSH + free T4, serum 2021 023 [facility], [address] [place], [address], 3 05:08:34 vitamin B12 + folate, serum or blood 2022 023 [place] [facility], [address] [place], [address], 3 05:08:38 Referral None recorded. Procedures None recorded. Surgeries None recorded. Imaging holter monitor 2022 023 [facility], [address] [place], [address], 3 09:43:38 holter monitor 2022 023 [facility], [address] [place], [address], 3 09:43:32 Medication Orders atorvastat in 20 mg tablet 2022 023 ONUR [facility], [address] [place] [address], [address], [place], [place], [id number], 3 15:25:02 levothyrox ine 75 mcg tablet 2022 023 [facility], [address] [facility] [place], [address], [place], [place], [id number], 3 15:25:02 Patient TargetsNo targets recorded. Patient Instructions Encounter Date Encounter Id Patient Instructions Last Modified By Organization Details Last Modified Time 09/09/2022 [id number] hearing screening* [email or web address] Not available 09/09/2022 15:25:00 Reason for Referral None Reported. Results Created Date Observation Date Name Description Value Unit Range Abnormal Flag Note LastModifiedBy Organization Detail LastModifiedTime 09/05/1909/05/2022 TSH+F REE T4 TSH 1.420 uIU/m L 0.450- 4.500 Not Available [facility] ([facility]) [address] [place], [address], 09/05/2022 05:08:34 09/05/19 23 09/05/2022 TSH+F REE T4 T4,free(dire ct) 1.34 NG/dL 0.82-1 .77 Not Available [facility] ([facility]) [address] [place], [address], 09/05/2022 05:08:34 09/05/19 23 09/04/2022 CBC WITH DIFFE RENTI AL/PL ATELE T WBC 5.4 x10e3 /uL 3.4-10 .8 Not Available [facility] ([facility]) [address] [place], [address], 09/05/2022 05:08:35 09/05/19 23 09/04/2022 CBC WITH DIFFE RENTI AL/PL ATELE T RBC 4.55 x10e6 /uL 3.77-5 .28 Not Available [facility] ([facility]) [address] [place], [address], 09/05/2022 05:08:35 09/05/19 23 09/04/2022 CBC WITH DIFFE RENTI AL/PL ATELE T hemoglobin 13.6 g/dL 11.1-1 5.9 Not Available [facility] ([facility]) [address] [place], [address], 09/05/2022 05:08:35 09/05/19 23 09/04/2022 CBC WITH DIFFE RENTI AL/PL ATELE T hematocrit 40.3 % 34.0-4 6.6 Not Available [facility] ([facility]) [address] [facility], [place], [address], 09/05/2022 05:08:35 09/05/19 23 09/04/2022 CBC WITH DIFFE RENTI AL/PL ATELE T MCV 89 fL 79-97 Not Available [facility] ([facility]) [address] [facility], [place], [address], 09/05/2022 05:08:35 09/05/19 23 09/04/2022 CBC WITH DIFFE RENTI AL/PL ATELE T MCH 29.9 pg 26.6-3 3.0 Not Available [facility] ([facility]) [address] [facility], [place], [address], 09/05/2022 05:08:35 09/05/19 23 09/04/2022 CBC WITH DIFFE RENTI AL/PL ATELE T MCHC 33.7 g/dL 31.5-3 5.7 Not Available [facility] ([facility]) [address] [facility], [place], [address], 09/05/2022 05:08:35 09/05/19 23 09/04/2022 CBC WITH DIFFE RENTI AL/PL ATELE T RDW 12.0 % 11.7-1 5.4 Not Available [facility] ([facility]) [address] [facility], [place], [address], 09/05/2022 05:08:35 09/05/19 23 09/04/2022 CBC WITH DIFFE RENTI AL/PL ATELE T platelets 265 x10e3 /uL 150-45 0 Not Available [facility] ([facility]) [address] [facility], [place], [address], 09/05/2022 05:08:35 09/05/19 23 09/04/2022 CBC WITH DIFFE RENTI AL/PL ATELE T neutrophils 52 % not estab. Not Available [facility] ([facility]) [address] [facility], [place], [address], 09/05/2022 05:08:35 09/05/19 23 09/04/2022 CBC WITH DIFFE RENTI AL/PL ATELE T lymphs 36 % not estab. Not Available [facility] ([facility]) [address] [facility], [place], [address], 09/05/2022 05:08:35 09/05/19 23 09/04/2022 CBC WITH DIFFE RENTI AL/PL ATELE T monocytes 9 % not estab. Not Available [facility] ([facility]) [address] [facility], [place], [address], 09/05/2022 05:08:35 09/05/19 23 09/04/2022 CBC WITH DIFFE RENTI AL/PL ATELE T eos 2 % not estab. Not Available [facility] ([facility]) [address] [facility], [place], [address], 09/05/2022 05:08:35 09/05/19 23 09/04/2022 CBC WITH DIFFE RENTI AL/PL ATELE T basos 1 % not estab. 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 0 Not Available [facility] ([facility]) [address] [facility], [place], [address], 09/05/2022 05:08:35 09/05/19 23 09/04/2022 CBC WITH DIFFE RENTI AL/PL ATELE T lymphs (absolute) 1.9 x10e3 /uL 0.7-3. 1 Not Available [facility] ([facility]) [address] [facility], [place], [address], 09/05/2022 05:08:35 09/05/19 23 09/04/2022 CBC WITH DIFFE RENTI AL/PL ATELE T monocytes(ab solute) 0.5 x10e3 /uL 0.1-0. 9 Not Available [facility] ([facility]) [address] [facility], [place], [address], 09/05/2022 05:08:35 09/05/19 23 09/04/2022 CBC WITH DIFFE RENTI AL/PL ATELE T eos (absolute) 0.1 x10e3 /uL 0.0-0. 4 Not Available [facility] ([facility]) [address] [facility], [place], [address], 09/05/2022 05:08:35 09/05/19 23 09/04/2022 CBC WITH DIFFE RENTI AL/PL ATELE T baso (absolute) 0.0 x10e3 /uL 0.0-0. 2 Not Available [facility] ([facility]) [address] [facility], [place], [address], 09/05/2022 05:08:35 09/05/19 23 09/04/2022 CBC WITH DIFFE RENTI AL/PL ATELE T immature granulocytes 0 % not estab. Not Available [facility] ([facility]) [address] [facility], [place], [address], 09/05/2022 05:08:35 09/05/19 23 09/04/2022 CBC WITH DIFFE RENTI AL/PL ATELE T immature grans (abs) 0.0 x10e3 /uL 0.0-0. 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 METAB OLIC PANEL (14) glucose 88 mg/dL 70-99 Not Available [facility] ([facility]) [address] [facility], [place], [address], 09/05/2022 05:08:36 09/05/19 23 09/05/2022 COMP. METAB OLIC PANEL (14) BUN 11 mg/dL 8-27 Not Available [facility] ([facility]) [address] [facility], [place], [address], 09/05/2022 05:08:36 09/05/19 23 09/05/2022 COMP. METAB OLIC PANEL (14) creatinine 0.75 mg/dL 0.57-1 .00 Not Available [facility] ([facility]) [address] [facility] [place], [address], 09/05/2022 05:08:36 09/05/19 23 09/05/2022 COMP. METAB OLIC PANEL (14) eGFR 88 mL/mi n/1.7 3 >59 Not Available [facility] ([facility]) [address] [facility], [place], [address], 09/05/2022 05:08:36 09/05/19 23 09/05/2022 COMP. METAB OLIC PANEL (14) BUN/creatini ne ratio 15 12-28 Not Available [facility] ([facility]) [address] [facility] [place], [address], 09/05/2022 05:08:36 09/05/19 23 09/05/2022 COMP. METAB OLIC PANEL (14) sodium 146 mmol/ L 134-14 4 above high normal Not Available [facility] ([facility]) [address] [place], [address], 09/05/2022 05:08:36 09/05/19 23 09/05/2022 COMP. METAB OLIC PANEL (14) potassium 4.4 mmol/ L 3.5-5. 2 Not Available [facility] ([facility]) [address] [facility], [place], [address], 09/05/2022 05:08:36 09/05/19 23 09/05/2022 COMP. METAB OLIC PANEL (14) chloride 106 mmol/ L 96-106 Not Available [facility] ([facility]) [address] [place], [address], 09/05/2022 05:08:36 09/05/19 23 09/05/2022 COMP. METAB OLIC PANEL (14) carbon dioxide, total 24 mmol/ L 20-29 Not Available [facility] ([facility]) [address] [facility], [place], [address], 09/05/2022 05:08:36 09/05/19 23 09/05/2022 COMP. METAB OLIC PANEL (14) calcium 9.4 mg/dL 8.7-10 .3 Not Available [facility] ([facility]) [address] [place], [address], 09/05/2022 05:08:36 09/05/19 23 09/05/2022 COMP. METAB OLIC PANEL (14) protein, total 7.1 g/dL 6.0-8. 5 Not Available [facility] ([facility]) [address] [facility], [place], [address], 09/05/2022 05:08:36 09/05/19 23 09/05/2022 COMP. METAB OLIC PANEL (14) albumin 4.4 g/dL 3.8-4. 8 Not Available [facility] ([facility]) [address] [facility], [place], [address], 09/05/2022 05:08:36 09/05/19 23 09/05/2022 COMP. METAB OLIC PANEL (14) globulin, total 2.7 g/dL 1.5-4. 5 Not Available [facility] ([facility]) [address] [facility], [place], [address], 09/05/2022 05:08:36 09/05/19 23 09/05/2022 COMP. METAB OLIC PANEL (14) A/G ratio 1.6 1.2-2. 2 Not Available [facility] ([facility]) [address] [facility], [place], [address], 09/05/2022 05:08:36 09/05/19 23 09/05/2022 COMP. METAB OLIC PANEL (14) bilirubin, total 0.6 mg/dL 0.0-1. 2 Not Available [facility] ([facility]) [address] [facility], [place], [address], 09/05/2022 05:08:36 09/05/19 23 09/05/2022 COMP. METAB OLIC PANEL (14) alkaline phosphatase 113 IU/L 44-121 Not Available [facility] ([facility]) [address] [facility], [place], [address], 09/05/2022 05:08:36 09/05/19 23 09/05/2022 COMP. METAB OLIC PANEL (14) AST (SGOT) 21 IU/L 0-40 Not Available [facility] ([facility]) [address] [facility] [place], [address], 09/05/2022 05:08:36 09/05/19 23 09/05/2022 COMP. METAB OLIC PANEL (14) ALT (SGPT) 13 IU/L 0-32 Not Available [facility] ([facility]) [address] [place], [address], 09/05/2022 05:08:36 09/05/19 23 09/05/2022 LIPID PANEL cholesterol, total 157 mg/dL 100-19 9 Not Available [facility] ([facility]) [address] [place], [address], 09/05/2022 05:08:37 09/05/19 23 09/05/2022 LIPID PANEL triglyceride s 88 mg/dL 0-149 Not Available [facility] ([facility]) [address] [facility], [place], [address], 09/05/2022 05:08:37 09/05/19 23 09/05/2022 LIPID PANEL HDL cholesterol 51 mg/dL >39 Not Available [facility] ([facility]) [address] [place], [address], 09/05/2022 05:08:37 09/05/19 23 09/05/2022 LIPID PANEL VLDL cholesterol jonathan 17 mg/dL 5-40 Not Available [facility] ([facility]) [address] [place], [address], 09/05/2022 05:08:37 09/05/19 23 09/05/2022 LIPID PANEL LDL chol calc (nih) 89 mg/dL 0-99 Not Available [facility] ([facility]) [address] [place], [address], 09/05/2022 05:08:37 09/05/19 23 09/05/2022 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 Not Available [facility] ([facility]) [address] [facility], [place], [address], 09/05/2022 05:08:38 09/05/19 23 09/05/2022 SCARLET+L IPASE amylase 53 U/L 31-110 Not Available [facility] ([facility]) [address] [place], [address], 09/05/2022 05:08:39 09/05/19 23 09/05/2022 SCARLET+L IPASE lipase 37 U/L 14-72 Not Available [facility] ([facility]) [address] [facility], [place], [address], 09/05/2022 05:08:39 09/05/19 23 09/05/2022 GGT GGT 15 IU/L 0-60 Not Available [facility] ([facility]) [address] [facility], [place], [address], 09/05/2022 05:08:39 09/02/19 23 09/01/2022 landen r monit or No observ ation record ed. [email or web address] [facility] [place] [place] [address] [place], [address], 09/01/2022 10:55:15 09/02/19 23 09/04/2022 landen r monit or No observ ation record ed. [email or web address] [address], [address], 09/04/2022 10:06:53 09/02/19 23 09/09/2022 landen r monit or No observ ation record ed. [email or web address] [address], [address], 09/10/2022 08:20:09 09/03/19 23 09/01/2022 elect jenny ness am No observ ation record ed. [email or web address] [address], [address], 09/02/2022 12:56:39 09/10/19 23 09/09/2022 landen r monit or No observ ation record ed. [email or web address] Not Available 09:32:22 09/11/19 23 09/10/2022 US, abdom en, limit ed PROCED URE:AB DOMINA L ULTRAS OUND, LIMITE D INDICA TIONS: R10.13 EPI PAIN COMPAR LISA:N one. FINDIN GS: Liver: Normal size and echoge nicity . Gallbl adder: Cholel ithias is. No wall thicke helen or perich olecys tic fluid noted. CBD:5 mm Sonogr aphic Contreras 's Sign:N egativ e. Pancre as:Unr emarka ble, no cyst or mass. Right Kidney :No hydron ephros is or obviou s renal stones , 10.5 cm long. NOTE: Unless otherw ise stated , all renal cysts are [place] k I and need no follow -up. A [place] k I simple cyst is a uniloc ular, thin-w alled anecho ic cyst. IMPRES VARGHESE: 1. Cholel ithias is withou t perich olecys tic fluid noted. No sonogr aphic Contreras sign. Ryan Saunders M.D. Dictat ed by: Ryan Saunders M.D. on 023 at 9:58 Electr onical ly signed by: Ryan Saunders M.D. on 023 at 9:59 Thank you for this referr al. CC: [email or web address]: [email or web address] presen tation [email or web address] Study. [email or web address]?a [email or web address] onNumb nd=[phone] [email or web address] [facility] [address], [place], [address], 09/15/2022 11:50:12 09/11/19 23 09/10/2022 US, hardeep mattson r No observ ation record ed. [email or web address] [facility] [address], [place], [address], 09/12/2022 16:18:55 09/11/19 23 09/04/2022 landen r monit or No observ ation record ed. [email or web address] [employer] [address] [facility] [address], [place], [address], 10/07/2022 11:06:16 09/12/19 23 09/11/2022 US, echoc ardio gram, trans thora cic, compl ete, w/ color flow No observ ation record ed. [email or web address] [address], [place], [address], 10/28/2023 12:51:14 09/12/19 23 09/10/2022 US, echoc ardio gram PROCED URE:EC HOCARD IOGRAP HY INDICA TIONS: R00.2 INTERM ITTENT PALPIT ATIONS TECHNI QUE: The heart was evalua gilda with realti me M-mode and 2D ultras ound using Dopple r, duplex , spectr al and color flow analys is, along with standa rd measur ements , with the patien t in multip le positi ons. COMPAR LISA:N one. FINDIN GS: 2D/M-M ODE DIMENS IONSDO PPLER INFLOW RVID1. 10.9-2 .6 cmMV0. 90.6-1 .3 m/sIVS (ed)0. 70.6-1 .1 cmMVA3 .6LVID (ed)-- 4.04.2 -5.8 cm M 3.2-5. 2 cm FDEC T E/A ratio2 08 1.4LVP W (ed)0. 70.6-1 .1cmSe ptal E0.11I VS (es)1. 2Later al E0.12L VID (es)-- 2.62.5 -4 cm M 2.2-3. 5 cm FE/e Ratio LA VOL8.3 32 LVPW (es)1. 1TV0.4 0.3-0. 7 m/sFS% 3628-4 1%RVSP PV22 0.6< 40 mmHg 0.6-0. 9 m/sEF% -- 6552-7 2% M 54-74% FLVOT AV1.1 1.10.7 -1.1 m/s 1.0-1. 7 m/sSim pson Trace6 3Max PG4.6m mHgAO (ed)2. 42.0-4 .0 cmMean PG2.8m mHgACS 1.71.5 -2.6 cmAVA3 .7> 2.0 cm2LA- - 2.53-4 cm M 2.7-3. 8 cm FDOPPL ER OUTFLO W E-F Slope5 .3>7.0 cm/sMR :Mild, max luis fernando 1.7D-E exc1.5 >1.8 cmAI:N one EPSS0. 3< 1.0 cmTR:M ild, max luis fernando 1.7, PG 12LVOT diam2. 01.8-2 .2 cmPI:N one CONTIN UED ON PAGE TWO PROCED URE:EC HOCARD IOGRAP HY IMPRES VARGHESE: 1. Normal left ventri cular systol ic functi on and wall motion with an ejecti on fracti on of 63-65% . 2. Mild mitral and tricus pid regurg itatio n. 3. No eviden ce of intrac ardiac thromb us, valvul ar vegeta tion or perica rdial effusi on. Fidencio Paredes D.O. Dictat ed by: Fidencio Paredes D.O. on 023 at 8:08 Transc ribed by: MARJORIE ATH on 023 at 7:17 Electr onical ly signed by: Fidencio Paredes D.O. on 023 at 9:28 Thank you for this referr CC: [email or web address]: //[email or web address] Security /image presen tation /Login Study. [email or web address]?a [email or web address] onNumb os=[id number] [id number] [email or web address] [facility] [address], [place], [address], 09/15/2022 11:50:12 Result Notes None recorded. Problems Name Problem SNOMED Code Status Onset Date Resolution Date Notes Provider Name and Address Organization Details Recorded Time Irritabl e bowel syndrome 54381394 Active Not Available [facility] 2 20:39:40 Hyperlip idemia 71265200 Active 2020 Not Available [facility] 2 20:39:40 Hypothyr oidism 96077509 Active 2020 Not Available [facility] 2 20:39:40 Osteopor osis 55527851 Completed 202003/26/2021 Janina Sena PA-C [facility] [place], [address] , [facility] 1 15:57:09 Osteopor osis 25049458 Active 2020 Bone Density 08/09/2019 Osteopor osis Not Available [facility] 2 20:39:40 Vitamin deficien cy 75604951 Completed 202005/10/2021 Yovany Galindo DO [address] [place], [address] , [facility] 1 07:42:36 Vitamin D deficien cy 07222353 Active 2020 Not Available [facility] 2 20:39:40 COVID-19 094422987 Active 202110/29/19 22-Posit alpa [place] - [facility] 2 14:00:27 Urge incontin ence of urine 08253037 Active 2021 Apurva Mcknight, STATE EDITOR [address] [place], [address] , [place] - [facility] 2 07:45:14 Intermit tent palpitat ions 923082920 Active 2021 Apurva Mcknight STATE EDITOR [facility], [address] , [facility] 2 12:40:44 Bilatera l tinnitus 02205548627 02 Active 2021 Apurva Mcknight STATE EDITOR [facility], [address] , [place] [facility] 2 12:41:07 Cobalami n deficien cy 466465041 Active 2021 Apurva Mcknight STATE EDITOR [facility], [address] , [facility] 2 07:54:12 Osteoart hritis 557819127 Active 2021 Sheri vo MD [address] [place], [address] , [place] [facility] 2 16:10:48 Epigastr ic pain 70711917 Active 2022 Apurva Mcknight STATE EDITOR [address] [place], [address] , [place] [facility] 3 10:21:56 Impacted cerumen in right ear 54044961415 11377 Active 2022 Apurva Mcknight, STATE EDITOR [address] [place], [address] , [place] [facility] 3 15:03:59 Problem Notes Documentation Provider Name and Address Organization Details Recorded Time 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 [address] [facility] [address]FEYGAAR, Julie S (id #[id number], : 1955) ? Date:09/09/2022? RE:Izabel Cortes, :1955? ? ? DeaMejia Harris MD? ? ? I recently evaluatedJulieat our practice for consultation and evaluation on09/09/2022. I have enclosed a copy of the office note for your record and my assessment and plan below. ? ? ? Once again, thank you for allowing me to participate in the care of this patient. Please let me know if you have any questions. ? ? ? Sincerely, Electronically Signed by: ION BENJAMIN PA-C ? Documents sent via fax will include the followingmessage: ? ? ? This fax may contain sensitive and confidential personal health information that is being sent for the sole use of the intended recipient. Unintended recipients are directed to securely destroy any materials received. You are hereby notified that the unauthorized disclosure or other unlawful use of this fax or any personal health information is prohibited. To the extent patient information contained in this fax is subject to 42 CFR Part 2, this regulation prohibits unauthorized disclosure of these records. If you received this fax in error, please visit [email or web address] to notify the sender and confirm that the information will be destroyed. If you do not have internet access, please call to notify the sender and confirm that the information will be destroyed. Thank you for your attention and cooperation. [ID:[id number]] ? Patient Sophia Boudreaux 67yo, F #[id number] 1955 ? ? ? Patient Demographics: Address [address] [place] [address] Insurance [facility] - Capitation Plan (Medicare Replacement/Advantage - HMO) Cell ? ? ? Encounter Notes: Encounter Reason/DateTransition of Care Encounter new patient New patient c/o occ palpitations for a few months. Holter monitor 09/04/22 09/09/2022 - 01:00PM - [facility] History of Present IllnessMsAlejandro Cortes is a 67 yo female with PMH of HLD, hypothyroidism who presents today for new patient evaluation of palpitations. She has recently discussed this with her PCP, who placed a holter monitor and this was just removed earlier today, so report download is not back yet. she has had palpitations for greater than 1 year. It feels like a rapid heart rate and she notices it more at rest, never with exertion. It lasts for less than 1 minute and resolves without any sort of further intervention. There are no other associated symptoms of chest pain, shortness of breath, dizziness or syncope. She does complain about some epigastric discomfort, so her primary care has done a rather extensive workup on her. She has multiple questions today in regards to dietary concerns. She lives on her own, so she admits that she is not the healthiest eater. Also due to her osteoarthritis of her knees, she admits that she is not as active as she knows that she should be. Other people have told her that she should try water aerobics, but she is afraid of the water. She is afraid to ride her bike. When she walks her knees cause her some discomfort. EKG with PCP on 09/01/22: NSR without acute changesEchocardiogram scheduled with LMI tomorrow Review of SystemsAdditionally reports:GENERAL/CONSTITUTIONAL : No acute complaints todaySKIN: Denies skin lesionsEYES: Denies changes in visionENT/NECK: denies history of epistaxis, adenopathy, or neck massesLUNGS: Denies shortness of breath, wheezing or pain with respirationHEART: Refer to HPIGASTROINTESTINAL: Denies a history of ulcersMUSCULOSKELETAL: Positive for knee pain.NEUROLOGIC: Negative for neuropathy, CVA, TIA or seizuresENDOCRINE: Denies history of diabetes or hyperlipidemiaHEMATOLOGIC: Denies history of anemia, unexplained fevers or prolonged bleedingPERIPHERAL VASCULAR: Denies history of arterial peripheral vascular disease or venous insufficiency PSYCHIATRIC: Denies history of depression Vitals Ht: 5 ft 7 in09/09/2022 12:53 pm Wt: 156.4 lbs With iczljki0809/09/2022 12:54 pm BMI: 24.504 12:54 pm BP: 134/72 sitting L arm09/09/2022 12:54 pm Pulse: 79 bpm09/09/2022 12:54 pm RR: 1604 12:54 pm O2Sat: 96% Room Air at Rest09/09/2022 12:55 pm Results/InterpretationsNone recorded Physical ExamGENERAL APPEARANCE: WDWN, NAD, appears stated age. SKIN: Warm and dry. EYES: No scleral icterus, conjunctiva normal, no xanthelasma. NECK: No carotid bruit, no JVD. LUNGS: CTA bilaterally without wheezes, rhonchi or rales. HEART: RRR, normal S1, normal S2, no murmurs or gallops. ABDOMEN: Non distended, +BS, no bruits, non-tender. LOWER EXTREMITIES: No clubbing or cyanosis. No edema. NEUROLOGIC: No gross deficits. No tremor. PERIPHERAL PULSES: 2+ distal pulses bilaterally. PSYCH: Alert and oriented to time place and person. Assessment and PlanAwait holter results. She is moving out of state within the next 2 weeks, so she will have to be notified via phone of the results. I did discuss with her that the results will go back to her PCP since they were the ordering provider. 1. Intermittent palpitations-She has holter monitor pending. Her laboratory studies did not reveal any significant abnormalities. Her thyroid functions have been normal. I discussed with her today it is hard for me to be able to identify what her palpitations might be when we do not have those results back. It does not sound life-threatening and it has been ongoing for greater than a year. She did tell me today that she pressed the symptom button on a few occasions, so she was symptomatic during that time frame. I discussed with her that we will be able to get the strips to know exactly what it is that she has been experiencing. Has echocardiogram also scheduled with [facility] through her primary care's office. She also has multiple questions in regards to dietary issues as well as exercise. I encouraged heart healthy diet as well as moderate aerobic activity for 30 minutes a day, 5 days a week.R00.2: Palpitations Return to Office Apurva Mcknight APRN for PREVENTIVE VISIT at [facility] [place] [place] on 09/09/2022 at 03:00 PM ? ? ? Patient Medical History: Allergies List Reviewed Allergies NKDA Medications Reviewed Medications NameDate Source acetaminophen 500 mg tabletTake 2 tablet(s) every 6 hours by oral route as needed.03/26/21?entered Arnulfo Calle atorvastatin 20 mg tabletTake 1 tablet(s) every day by oral route as directed for 90 days.08/01/22?filled surescripts levothyroxine 75 mcg tabletTake 1 tablet(s) every day by oral route as directed for 90 days.08/01/22?filled surescripts PreserVision AREDSonce daily03/07/21?entered Anh Mcclendon PreviDent 5000 Booster Plus 1.1 % dental pasteAPPLY THIN RIBBION TO TOOTHBRUSHAND BRUSH EVERY DAY FOR 2 MINUTES AT BEDTIME SPIT BUT DONT RINSE FOR 30 ZRVAYHE34/03/23?filled surescripts sodium fluoride 1.1 % dental gelBRUSH TEETH EVERY DAY FOR 2 MINUTES AT BEDTME AND SPIT OUT. DO NOT RINSE FOR 30 SBMKDUC12/02/23?filled surescripts Vitamin D3(1) 2000 IU tablet QD05/28/21?entered Genie Hinton calcium ProblemsReviewed Problems Hypothyroidism - Onset: 03/26/2021 Cobalamin deficiency - Onset: 03/04/2022 Vitamin D deficiency - Onset: 05/10/2021 Hyperlipidemia - Onset: 03/26/2021 Bilateral tinnitus - Onset: 01/28/2022 Irritable bowel syndrome Osteoarthritis - Onset: 03/31/2022 Osteoporosis - Onset: 03/26/2021 - Bone Density 08/09/2019 Osteoporosis Intermittent palpitations - Onset: 01/28/2022 Urge incontinence of urine - Onset: 01/17/2022 Epigastric pain - Onset: 09/01/2022 COVID-19 - Onset: 10/28/2021 - 10/28/2021-Positive Family HistoryReviewed Family History Past Medical HistoryReviewed Past Medical History Irritable Bowel:Y Vaccine HistoryReviewed Vaccines Vaccine Type Date Amt. Route Site NDC Lot? ? ?# Mfr. Exp. Date VIS VIS Given Automatic [employer] COVID-19 COVID-19, mRNA, LNP-S, PF, 30 mcg/0.3 mL dose ([employer]) 03/28/22 COVID-19, mRNA, LNP-S, PF, 30 mcg/0.3 mL dose, alfred-sucrose ([employer]) 12/19/21 Intramuscular [id number] [employer] Inc COVID-19, mRNA, LNP-S, PF, 30 mcg/0.3 mL dose ([employer]) 03/25/21 Intramuscular [id number] Pfizer, Inc COVID-19, mRNA, LNP-S, PF, 30 mcg/0.3 mL dose ([employer]) 09/22/20 COVID-19, mRNA, LNP-S, PF, 30 mcg/0.3 mL dose ([employer]) 09/01/20 Diphtheria, Tetanus Td (adult) preservative free 05/06/22 0.5 mL Intramuscular Arm, Left Upper [id number] Sanofi Pasteur 03/07/23 Td 01/11/2021 05/06/22 Ashlee Irwin Influenza influenza, injectable, quadrivalent 03/28/22 influenza, high-dose, quadrivalent 03/25/21 Intramuscular [id number] Sanofi Pasteur influenza, injectable, quadrivalent 03/08/20 ? ? ? Electronically Signed by: ION BENJAMIN, GISEL ? ? ? Ashlee Irwin [facility] 09/09/2022 14:21:59 Procedures Surgical History Date Name Laterality Status Provider Name and Address Organization Details Recorded Time 09/05/19 23 Phlebotomy Blood Draw completed Torsten Delgado [facility] 09/04/2022 10:07:02 02/26/20 22 Phlebotomy Blood Draw completed Katerina Sears [facility] 02/25/2022 09:58:01 01/23/20 22 Phlebotomy Blood Draw completed Torsten Delgado [place] - [facility] 01/22/2022 09:33:26 11/20/19 22 Phlebotomy Blood Draw cancelled Katerina Sears [place] - [facility] 11/18/2021 15:03:14 05/08/20 21 Preventative Visit Discussed with Patient completed Anh Mcclendon [place] [facility] 05/07/2021 14:21:36 05/01/20 21 Phlebotomy Blood Draw completed Katrina Taylor [place] [facility] 05/01/2021 10:34:08 Imaging Results Imaging Date Name Status LastModified by Organization Details LastModified Time 09/01/2022 holter monitor completed [email or web address] [address], [address], 09/01/2022 10:55:15 09/04/2022 holter monitor completed [address], [address], 09/04/2022 10:06:53 09/09/2022 holter monitor completed [email or web address] [address], [address], 09/10/2022 08:20:09 09/01/2022 electrocardiogram completed [email or web address] [address], [address], 09/02/2022 12:56:39 09/09/2022 holter monitor completed [email or web address] Informa tion not available 09/11/2022 09:32:22 09/10/2022 US, abdomen, limited completed [email or web address] [facility] [address], [place], [address], 09/15/2022 11:50:12 09/10/2022 US, gallbladder completed [email or web address] [facility] [address], [place], [address], 09/12/2022 16:18:55 09/04/2022 holter monitor completed [email or web address] [employer] [address], [place], [address], 10/07/2022 11:06:16 09/11/2022 US, echocardiogram, transthoracic, complete, w/ color flow completed [facility] [address], [place], [address], 10/28/2023 12:51:14 09/10/2022 US, echocardiogram [email or web address] [address], [place], [address], 09/15/2022 11:50:12 Procedure Notes None recorded. Medical Equipment None Reported. Allergies No known drug allergies Medications Name Sig Start Date Stop Date Status Note LastModified by Organization Details LastModified Time Prescript ion - Renewal active Not Available Not Available Not Available methocarb karen 500 mg tablet 03/26 completed Not Available Not Available Not Available terbinafi ne HCl 1 % topical cream APPLY TO THE AFFECTED AND SURROUND ING AREAS OF SKIN BY TOPICAL ROUTE ONCE DAILY 06/04 completed Not Available Not Available Not Available atorvasta tin 20 mg tablet Take 1 tablet every day by oral route as directed for 100 days. 2022 active Not Available Not Available Not Avai lable Lidocaine Viscous 2 % mucosal solution Take 15 mL every 3 hours by oral route as needed. 11/27 completed Not Available Not Available Not Available alendrona te 70 mg tablet Take 1 {tablet} by oral route. 06/24 completed Not Available Not Available Not Available acetamino phen 500 mg tablet Take 2 tablets every 6 hours by oral route as needed. active Not Available Not Available No t Available amoxicill in 500 mg tablet TAKE 1 TABLET BY MOUTH EVERY 12 HOURS FOR 10 DAYS 11/27 completed Not Available Not Available Not Available levothyro xine 75 mcg tablet Take 1 tablet every day by oral route as directed for 100 days. 2022 active Not Available Not Available Not Avai lable benzonata te 100 mg capsule TAKE 1 CAPSULE BY MOUTH THREE TIMES DAILY FOR 10 DAYS NEEDED 11/27 completed Not Available Not Available Not Available cyanocoba rodo (vit B-12) 1,000 mcg/mL injection solution Inject 1 mL by intramus cular route. 06/04 completed [id number] Not Available Not Available Not Available clotrimaz ole-betam ethasone 1 %-0.05 % topical cream APPLY TO THE AFFECTED AREA TWICE DAILY FOR 2 WEEKS AND ONE MORE WEEK AFTER IT HAS RESOLVED 01/16 completed Not Available Not Available Not Available lidocaine 5 % topical patch PRN 06/24 completed Not Available Not Available Not Available methylpre dnisolone 4 mg tablets in a dose pack 03/26 completed Not Available Not Available Not Available albuterol sulfate HFA 90 mcg/actua tion aerosol inhaler INHALE 2 PUFFS BY MOUTH EVERY 4 HOURS NEEDED 11/27 completed Not Available Not Available Not Available sodium fluoride 1.1 % dental gel BRUSH TEETH EVERY DAY FOR 2 MINUTES AT BEDTME AND SPIT OUT. DO NOT RINSE FOR 30 MINUTES active Not Available Not Available No t Available amoxicill in 875 mg-potass ium clavulana te 125 mg tablet TAKE 1 TABLET BY MOUTH EVERY 12 HOURS FOR 7 DAYS DIRECTED 06/04 completed Not Available Not Available Not Available acetamino phen 03/26 completed Not Available Not Available Not Available Vitamin D3 (1) 2000 IU tablet QD active Not Available Not Available No t Available PreserVis ion AREDS once daily active Not Available Not Available No t Available levothyro xine 75 mcg capsule Take 1 {capsule } every 24 hours by oral route. 06/24 completed Not Available Not Available Not Available PreviDent 5000 Booster Plus 1.1 % dental paste APPLY THIN RIBBION TO TOOTHBRU CHASTITY BRUSH EVERY DAY FOR 2 MINUTES AT BEDTIME SPIT BUT DONT RINSE FOR 30 MINUTES active Not Available Not Available No t Available Paxlovid 300 mg (150 mg x 2)-100 mg tablets in a dose pack TAKE 1 DOSE PACK BY MOUTH DIRECTED 11/27 completed Not Available Not Available Not Available Vitals Date Recorded Body height Provider Name an d Address Organization Details Last Updated DateTime 09/09/2022 170.18 cm Maura Nava [place] - [facility] 09/09/2022 12:53:38 Date Recorded Body mass index (BMI) Body weight Provider Name and Address Organization Details Last Updated DateTime 09/09/2022 24.5 kg/m2 02204.85 g Maura Nava [place] - [facility] 09/09/2022 12:54:37 Date Recorded Heart rate Provider Name an d Address Organization Details Last Updated DateTime 09/09/2022 79 /min Maura Trejoer [place] - [facility] 09/09/2022 12:54:51 Date Recorded Respiratory rate Provider Name a nd Address Organization Details Last Updated DateTime 09/09/2022 16 /min Maura Trejoer [place] [facility] 09/09/2022 12:54:54 Date Recorded Oxygen saturation Oxygen saturation in Arterial blood by Pulse oximetry Provider Name and Address Organization Details Last Updated DateTime 09/09/2022 96 % 96 % Maura Nava [place] - [facility] 09/09/2022 12:55:00 Date Recorded Body height Provider Name an d Address Organization Details Last Updated DateTime 09/09/2022 170.18 cm Ashlee Irwin [place] - [facility] 09/09/2022 14:41:48 Date Recorded Body mass index (BMI) Body weight Provider Name and Address Organization Details Last Updated DateTime 09/09/2022 24.4 kg/m2 82476.41 g Ashlee Irwin [place] - [facility] 09/09/2022 14:43:16 Date Recorded Body temperature Provider Name a nd Address Organization Details Last Updated DateTime 09/09/2022 97.4 [degF] Ashlee [place] - [facility] 09/09/2022 14:43:55 Date Recorded Heart rate Provider Name an d Address Organization Details Last Updated DateTime 09/09/2022 92 /min Ashlee Irwin [place] - [facility] 09/09/2022 14:44:14 Date Recorded Oxygen saturation Oxygen saturation in Arterial blood by Pulse oximetry Provider Name and Address Organization Details Last Updated DateTime 09/09/2022 96 % 96 % Ashlee Irwin [place] - [facility] 09/09/2022 14:44:19 Date Recorded Pain severity - 0-10 verbal numeric rating [Score] - Reported Provider Name and Address Organization Details Last Updated DateTime 09/09/2022 0 [facility] [place] [facility] 09/09/2022 14:44:35 Date Recorded Systolic blood pressure Diastolic blood pressure Provider Name and Address Organization Details Last Updated DateTime 09/09/2022 134 mm[Hg] 72 mm[Hg] [facility] [place] [facility] 09/09/2022 12:54:49 Date Recorded Systolic blood pressure Diastolic blood pressure Provider Name and Address Organization Details Last Updated DateTime 09/09/2022 120 mm[Hg] 71 mm[Hg] Ashlee [place] [facility] 09/09/2022 14:44:08 Social History Question Answer Notes LastModified by [email or web address] ion Details LastModified Time Tobacco Smoking Status Never Smoker Anh [email or web address] [place] [facility] 03/07/2021 15:36:13 Do You Have An Advance Directive? No [email or web address] Information not available 03/07/2021 What Is Your Level Of Alcohol Consumption? Occasional Information not available 03/07/2021 What Is Your Level Of Caffeine Consumption? Occasional [email or web address] Information not available 03/07/2021 Are You A Caregiver? No [email or web address] Information not available 03/07/2021 Are You Currently Employed? No [email or web address] Information not available 03/07/2021 What Type Of Diet Are You Following? REGULAR [email or web address] Information not available 03/07/2021 What Is The Highest Grade Or Level Of School You Have Completed Or The Highest Degree You Have Received? [id number] [email or web address] Information not available 03/07/2021 Have There Been Any Changes To Your Family Or Social Situation? No [email or web address] Information no t available 03/07/2021 Where Do You Live? SingleLevelHouse [email or web address] Information not available 03/07/2021 Living Will No [email or web address] Information n ot available 03/07/2021 Power Of Film Sorter No [email or web address] Informa tion not available 03/07/2021 Health Care Surrogate No [email or web address] Information not available 03/07/2021 Five Wishes No [email or web address] Information n ot available 03/07/2021 DNR No [email or web address] Information no t available 03/07/2021 Guardian No [email or web address] Information no t available 03/07/2021 Total Number In Household 1 [email or web address] Information not available 03/07/2021 Do You Have Local Family? Yes [email or web address] Information not available 03/07/2021 Shinto Preference None [email or web address] Information not available 03/07/2021 Domestic Violence No [email or web address] Informa tion not available 03/07/2021 Occupational Exposures No [email or web address] Information not available 03/07/2021 Do You Have Any Financial Concerns Related To The Medications You Are Taking? No Information not available 03/07/2021 Do You Have Any Other Barriers Related To The Medications You Are Taking? No [email or web address] Information not available 03/07/2021 Do You Have Any Communication Barriers? Hearing Information not available 03/07/2021 Does The Family Or Caregiver Have Any Communication Barriers? None [email or web address] Information not available 03/07/2021 During The Past 4 Weeks, How Many Drinks Of Wine, Beer, Or Other Alcoholic Beverages Have You Consumed? 1 Drink/week [email or web address] Information not available 03/07/2021 Do You Understand The Medication You Are Taking? Yes [email or web address] Information not available 11/27/2021 Do You Have A Medical Power Of Film Sorter? No [email or web address] Information not available 03/07/2021 Do You Have An Out Of Hospital DNR? No [email or web address] Information not available 03/07/2021 Have You Ever Been Counseled For Unhealthy Alcohol Use? No [email or web address] Information not available 03/07/2021 Do You Have Any Pets? Yes [email or web address] Information not available 03/07/2021 What Is Your Relationship Status? Unknown [email or web address] Information not available 03/07/2021 Do You Use Your Seat Belt Or Car Seat Routinely? Yes Information not available 03/07/2021 Are You Sexually Active? No [email or web address] Information not available 03/07/2021 Do You Have Smoke And Carbon Monoxide Detectors In Your Home? Yes [email or web address] Information not available 03/07/2021 Are You Passively Exposed To Smoke? No [email or web address] Information no t available 03/07/2021 Are There Any Smokers In Your House? No [email or web address] Information not available 03/07/2021 What Types Of Sporting Activities Do You Participate In? None [email or web address] Information not available 03/07/2021 Do You Feel Stressed (tense, Restless, Nervous, Or Anxious, Or Unable To Sleep At Night)? [id number] [email or web address] Information not available 03/07/2021 Do You Use Any Illicit Or Recreational Drugs? No [email or web address] Information not available 03/07/2021 Do You Use Sunscreen Routinely? No [email or web address] Information not available 03/07/2021 Has Tobacco Cessation Counseling Been Provided? Yes Information not available 09/09/2022 On What Date Was Tobacco Cessation Counseling Provided? 09/09/2022 Information not available 09/09/2022 Sex: Female Functional Status Question Answer Note LastModified by Organization D etails LastModified Time Are you able to care for yourself? Yes [email or web address] Information n ot available 03/07/2021 What is your exercise level? None [email or web address] Information not available 03/07/2021 Mental Status None recorded. Family History Nothing Reported. Medical History Condition Response Irritable Bowel Y Gynecological History Statement/Question Response Para 1 If Post Menopausal, Age at Menopause 57 Age at First Child 25 2 Obstetrics History GPAL:G 0 P 0 0 0 0 Immunizations Vaccine Type Date Status Note Provider Nam e and Address Organization Details Recorded Time Td (adult), 5 Lf tetanus toxoid, preservative free, adsorbed 2 completed Apurva Mcknight, STATE EDITOR [address] [place], [address], [facility] 05/06/2022 10:14:45 Influenza, split virus, quadrivalent, preservative 0 completed Not Available [facility] 07/07/2021 20:39:41 COVID-19, mRNA, LNP-S, PF, 30 mcg/0.3 mL dose 1 completed Not Available [facility] 07/07/2021 20:39:41 COVID-19, mRNA, LNP-S, PF, 30 mcg/0.3 mL dose 1 completed Not Available [facility] 07/07/2021 20:39:40 COVID-19, mRNA, LNP-S, PF, 30 mcg/0.3 mL dose 1 completed Ashleetanya Drakeley null, [place] - [facility] 02/24/2022 11:14:16 COVID-19, mRNA, LNP-S, PF, 30 mcg/0.3 mL dose, alfred-sucrose 2 completed Ashleetanya Irwin null, [facility] 02/24/2022 11:14:16 Influenza, high-dose, quadrivalent, PF 1 completed Ashleetanya Drakeley null, [place] - [facility] 02/24/2022 11:14:16 COVID-19, mRNA, LNP-S, PF, 30 mcg/0.3 mL dose 2 completed Anupama Montelongo null, [place] - [facility] 03/31/2022 16:05:37 Influenza, split virus, quadrivalent, preservative 2 completed Anupama Montelongo reji, [facility] 03/31/2022 16:05:53 Past Encounters Encounter ID Performer Location Encounter Start Date Encounter Closed Date Diagnosis/Indication Diagnosis SNOMED-CT Code Diagnosis ICD10 Code Diagnosis Note [id number] Yovany Galindo DO [facility] [address] [place] [address] 03/26/2021 15:25:05 03/26/2021 16:28:27 Hyperlipidemia 05306280 E78.5 On atorvastat in. High cholestero l or hyperlipid emia can be managed with lifestyle modificati on and medication . Both treatments usually need to be continued because neither cure the problem. However, if you are overweight , losing a significan t amount of weight and being aerobicall y in shape will often decrease the number and dose of medication needed for control. An LDL goal of below 130 is the basic goal for people with no increased risk for heart disease. Getting the LDL below 100 is the goal for folks with a family history of heart disease. A cutoff of 70 for LDL is the guiding number for patients with heart disease or diabetes or very high family history risk. Please work on your diet (decreased fatty meats, eggs, high fat dairy, butter, etc.) and aerobic exercise as we discussed to achieve your LDL goal (which is likely to be different from other people). Your treatment is currently stable but can be improved with increased aerobic conditioni ng and maintainin g a normal weight. Hypothyroidism 70748188 E03.9 Will check levels with next labs. Irritable bowel syndrome 43675931 K58.9 Stable if watching diet. Osteoporosis 85376272 M8 1.0 Encouraged exercise including weight bearing exercise. Take vitamin D 2000 units daily in the evening and daily calcium of 1200 mg. [id number] Katrina Taylor [address] [place] [address] 05/01/2021 08:29:16 05/02/2021 00:45:35 Hypothyroidism 92869058 E03.9 Osteoporosis 31401289 M8 1.0 Hyperlipidemia 61669772 E78.5 [id number] Yovany Galindo DO [address] [address] 05/08/2021 14:46:46 05/08/2021 16:07:06 Adult health examination [id number] Z00.00 Completed today. - regular physical exercise, 5x per week for at least 30 min - keep a healthy diet: especially low fat diet and avoiding trans-fatt y acids, avoid refined carbs as much as possible incl sugar added items and items with high fructose corn syrup, increase natural fibers, vegetable, eating fruits daily, change refined grains such as white starchy items and white rice to whole grains like wheat and brown rice - avoid smoking and passive smoking - limit alcoholic beverage - wear seat belts at all times blos work next time Medication review done [id number] Z76.89 Please let us know if your ability to obtain or take your medication s as prescribed changes. Medication adherence, or taking medication s correctly, is generally defined as the extent to which patients take medication as prescribed by their doctors. This involves factors such as getting prescripti ons filled, rememberin g to take medication on time, and understand ing the directions . Common barriers to medication adherence include: the inability to pay for medication s, disbelief that the treatment is necessary or helping, difficulty keeping up with multiple medication s and complex dosing schedules, confusion about how and when to take the medication . Poor adherence can interfere with the ability to treat many diseases, leading to greater complicati ons from the illness and a lower quality of life for patients. Risk assessment done [id number] Z76.89 Environmen berenice and social supports that affect a patient's needs and goals are important. Please let us know if any of the following changes: Basic ADLs are self-care activities that an individual must accomplish in order to remain self sufficient . These include bathing, dressing, toileting, transferri ng, maintainin g continence , and feeding. Instrument al ADLs are higher level activities that individual s must perform or have help with to remain independen t in their homes. These include using the telephone, shopping, doing housework, doing laundry, preparing meals, driving, taking medication s, and managing money. Advance di rective discussed with patient [id number] Z71.89 Advance directives are legal documents that allow you to spell out ahead of time what types of medical care you would want if you ever became unable to speak for yourself. These documents can help ensure that you get the care you want even if you have an unexpected serious illness or accident. Advance directives work best when they are part f a team effort. If you do not currently have advanced directives on file please discuss this with your [facility] Team. Bilateral hearing loss 28215231 H91.93 Ophthalmic examination and evaluation 50291721 Z01.00 Osteoporosis 22699896 M8 1.0 continue alendronat e as previously Hypothyroidism 42380252 E03.9 continue levothyrox ine as beofre Hyperlipidemia 11051490 E78.5 on atorvastat in and tolerating well Irritable bowel syndrome 70419622 K58.9 she is fine with her diet and how things are right now. 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 Skin lesion on right aspect of neck present for approx 2 weeks, and worsening. Pt has been applying Bacitracin without any improvemen t. [id number] Yovany Galindo DO [address] [address] 08/21/2021 10:52:53 08/21/2021 11:26:40 Tinea corporis 84000829 B35.4 I feel that patient should try get this with an antifungal cream and see if this will help resolve. She will stop the combo cream. She will let me know if this is not resolving. She will still avoid wearing jewelry around her neckline. Osteoporosis 14130033 M8 1.0 Patient is on alendronat e but is due for her bone density testing so this was ordered.En couraged exercise including weight bearing exercise. Take vitamin D 2000 units daily in the evening and daily calcium of 1200 mg. [id number] NICOL SCHULTZ [address] [address] 10/28/2021 14:37:15 10/28/2021 14:53:47 COVID-19 796479668 U07.1 The pt tested positive for COVID19 today. Symptoms are consistent with the result. Treatment for this is the same as any viral illness which includes symptomati c treatment. Pt advised on these treatments and advised on quarantine period. Pt instructed to call office if develops new or worsening symptoms or if symptoms are not improving in a week. Pt verbalizes understand ing and is in agreement with the treatment plan discussed. Pt requesting Paxlovid. Pros/cons and considerat ions discussed and agreed to move forward with prescribin g the medication . The pt is to d/c her atorvastat in while on the medication and resume once the medication has ended. Pt verbalizes understand ing and is in agreement with the treatment plan discussed. [id number] NICOL SCHULTZ [address] [address] 10/31/2021 10:46:43 10/31/2021 11:03:50 Acute pharyngitis 822227874 J02.9 The pt's throat is mildly erythemato us. No tonsillar enlargemen t noted. The pt's symptoms are lasting longer that typical with COVID19 and worsening. Will treat as below for secondary infection. Pt verbalizes understand ing and is in agreement with the treatment plan discussed. COVID-19 263578280 U07.1 The pt tested positive for COVID19 today. Symptoms are consistent with the result. Treatment for this is the same as any viral illness which includes symptomati c treatment. Pt advised on these treatments and advised on quarantine period. Pt instructed to call office if develops new or worsening symptoms or if symptoms are not improving in a week. Pt verbalizes understand ing and is in agreement with the treatment plan discussed. Pt requesting Paxlovid. Pros/cons and considerat ions discussed and agreed to move forward with prescribin g the medication . The pt is to d/c her atorvastat in while on the medication and resume once the medication has ended. Pt verbalizes understand ing and is in agreement with the treatment plan discussed. 10/31/21 - The pt's symptoms could be related to COVID19 however this is lasting longer than typical for this. Will treat as below. [id number] Sheri vo MD [address] [address] 11/27/2021 15:42:21 11/27/2021 16:37:15 Adult health examination 418169894 Z00.00 Medication review done 026025195 Z76.89 Please let us know if your ability to obtain or take your medication s as prescribed changes. Medication adherence, or taking medication s correctly, is generally defined as the extent to which patients take medication as prescribed by their doctors. This involves factors such as getting prescripti ons filled, rememberin g to take medication on time, and understand ing the directions . Common barriers to medication adherence include: the inability to pay for medication s, disbelief that the treatment is necessary or helping, difficulty keeping up with multiple medication s and complex dosing schedules, confusion about how and when to take the medication . Poor adherence can interfere with the ability to treat many diseases, leading to greater complicati ons from the illness and a lower quality of life for patients. Risk assessment done 917 521052 Z76.89 Environmen berenice and social supports that affect a patient's needs and goals are important. Please let us know if any of the following changes: Basic ADLs are self-care activities that an individual must accomplish in order to remain self sufficient . These include bathing, dressing, toileting, transferri ng, maintainin g continence , and feeding. Instrument al ADLs are higher level activities that individual s must perform or have help with to remain independen t in their homes. These include using the telephone, shopping, doing housework, doing laundry, preparing meals, driving, taking medication s, and managing money. Advance care planning 71 6080375 Z71.89 Discussed with patient the need to have a health care surrogate for decision making in the event the patient were unable to make decisions and that person would be whom the patient assigns. I asked patient if she would consider other life saving techniques including CPR, Cardiopulm onary resuscitat ion requiring shocking, and PEG tube placement for nutrition. Patient reports at this time she is agreeable to the above life saving measures.S he reports having a living will and will bring to next visit. Screening for malignant neoplasm of colon 636510792 Z12.11 Patient was explained the importance of colon cancer screening for early detection. Patient was explained the average length of colon cancer is 10 years and routine screening is essential. I explained there are three methods with the gold standard being colonoscop y that is invasive but has ability to remove polyps and obtain biopsy. I explained the other two hemeoccult and Cologuard are less invasive but also have false negative and false positive. I explained the risks including not detecting cancer using the other two methods 100% of the time. I explained hemeoccult would be need to done yearly. If they have any changes to the bowel movement including changes to constipati on and diarrhea. And blood in stool to please notify me. Screening for malignant neoplasm of breast 387575613 Z12.39 Z12.31 Hypothyroidism 87334385 E03.9 currently on levothyrox ine 75mcg p.o. q.day, obtain baseline TSH and Free T4, patient denies any fatigue weight changes or appetite change Hyperlipidemia 77181516 E78.5 counseled patient on the importance of changing diet to reduced fat, no fried foods, reduce consumptio n of sugar, and not to eat processed foods including pre packed and canned food items. I also recommend to get physical activity 10-20 min as tolerated per day. I explained that all of these help to control blood sugar and hypertensi on. Vitamin D deficiency 347 [address] E55.[address] Female str ess incontinence 72842410 N39.3 recommend kegel exercises to improve incontinen ce, and patient agrees to trying PT [id number] Torsten [facility] [address] [place] [address] 01/22/2022 09:21:07 01/23/2022 02:23:48 Vitamin D deficiency 22692171 E55.9 Hypothyroidism 04259792 E03.9 Hyperlipidemia 90324656 E78.5 Palpitations 99808353 R0 0.2 [id number] Davide Rob MD [address] [place] [address] 01/16/2022 09:48:29 01/16/2022 10:55:42 Palpitations 48217613 R00.2 Pt. presents with c/o heart palpitatio ns after drinking coffee. She reports she don't unusually drink the whole cup, so she doesn't believe it's the caffeine. She denies large amounts of caffeine intake. She also reports that palpitatio ns occur if she feels stressed. Noticing more often lately. Pt. states episodes started right after she had COVID. Denies any chest pain or SOB. She has a h/x of hypothyroi dism. Plan: Check TSH and T4. Obtain EKG. Will consider 24 hr Holter if symptoms continue and thyroid is WNL. Recommende d that patient call [facility] office for worsening symptoms or concerns. Bilateral tinnitus 21861 75096 102 H93.13 Pt. has c/o hearing loss and tinnitus in both ears- R>L. Plan: Pt. interested in and agreeable to vestibular therapy- send referral. Recommende d that patient call [facility] office for worsening symptoms or concerns. Hypothyroidism 04032931 E03.9 Pt. has a h/x of hypothyroi dism and on levothyrox ine- possible cause of palpitatio ns. Plan: Check TSH and T4. Recommende d that patient call [facility] office for worsening symptoms or concerns. 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 reports she will start physical therapy on Thursday for pelvic therapy. [id number] Sheri vo MD [address] [place] [address] 01/28/2022 09:44:48 01/28/2022 11:01:45 Intermittent palpitations 582865836 R00.2 Pt. reports that some days I don't think about them and don't have them. Pt. reports that the palpitatio ns do not seem to be as frequent. Also, patient is doing less caffeine and more decaf. Plan: If symptoms persist or worsen, consider Holter monitor. Recommende d that patient call [facility] office for worsening symptoms or concerns. Vitamin D deficiency 347 23056 E55.9 Vit. D 24.7- Recommende d to take vitamin-D 2000 units once a day. Discussed foods rich in Vitamin D. Plan: Recommende d that patient call [facility] office for worsening symptoms or concerns. Cobalamin deficiency 190 308973 E53.8 Vitamin B12- 165 low. Possible cause of heart palpitatio ns. Plan: Vitamin B12 injections weekly x 4 weeks. Recheck B12 in one month. Recommende d that patient call [facility] office for worsening symptoms or concerns. Bilateral tinnitus 62778 07203 102 H93.13 Pt. has c/o hearing loss and tinnitus in both ears- R>L. Plan: Pt. was seen by audiology. She reports she was advised to stop salting food as it could help with tinnitus. Recommende d that patient call [facility] office for worsening symptoms or concerns. [id number] Katerina [address] [address] 02/25/2022 09:49:09 02/26/2022 08:02:38 Cobalamin deficiency 996454193 E53.8 [id number] Diandra Johnson [address] [address] 02/06/2022 09:53:24 02/06/2022 10:01:59 Vitamin B12 level below reference range 784714992 R79.9 [id number] Ashlee Irwin [address] [place] [address] 02/13/2022 09:50:39 02/13/2022 09:58:06 Vitamin B12 level below reference range 371789228 R79.9 [id number] Ashlee Irwin [facility] [place] [place] [address] [place] [address] 02/20/2022 09:09:52 02/20/2022 09:19:19 Vitamin B12 level below reference range 822913822 R79.9 [id number] Davide Rob MD [address] [place] [address] 03/04/2022 09:59:22 03/04/2022 10:19:24 Cobalamin deficiency 237420009 E53.8 Pt VitB12 was 165 at last visit in January. Here today to f/u on B12 recheck after receiving B12 injections for past month- WNL 944. Continue B12 supplement s. Recommende d that patient call [facility] office for worsening symptoms or concerns. Intermitte nt palpitations 690824236 R00.2 Pt. reports possible decrease in palpitatio ns. I haven't stopped myself to say oh there it is . Plan: Recommende d that patient call [facility] office for worsening symptoms or concerns. [id number] Sheri vo MD [address] [place] [address] 03/31/2022 15:53:03 03/31/2022 16:33:04 Hypothyroidism 69485548 E03.9 currently well controlled on levothyrox ine 75mcg po qd, and thyroid level in range Hyperlipidemia 96021721 E78.5 counseled patient on the importance of changing diet to reduced fat, no fried foods, reduce consumptio n of sugar, and not to eat processed foods including pre packed and canned food items. I also recommend to get physical activity 10-20 min as tolerated per day. I explained that all of these help to control blood sugar and hypertensi on. Osteoarthritis 121088644 M19.90 counseled patient on the importance of changing diet to reduced fat, no fried foods, reduce consumptio n of sugar, and not to eat processed foods including pre packed and canned food items. I also recommend to get physical activity 10-20 min as tolerated per day. I explained that all of these help to control blood sugar and hypertensi on. Vitamin D deficiency 347 48157 E55.9 all labs are within normal range except vitamin-D level is low, take vitamin-D 2000 units once a day Epigastric pain 78016757 R10.[id number] Apurva [address] [address] 06/04/2022 15:17:14 06/04/2022 16:03:56 Cat bite - wound 547954189 W55.01XA Pt. presents for f/u on cat bite to right 4th and 5th digits. She was started on amoxicilli n. Wounds from cat bite have improved. + epithelial ization noted to wound beds on 4th and 5th digit of right hand, + erythema around periphery of wound beds. There is still some edema- pt unable to bend finger as of yet. Recommende d that she notify H of any changes to wound appearance including swelling, pain. or if she develops a fever, chills, nausea or vomiting. F/u again in 1 week. Skin tag 642228300 L91.8 She reports a skin tag under right eye. She will return the first of the year for referral to dermatolog y. Circles under eyes 81610 8003 R68.89 She reports circles under eyes- will return the first of the year for referral to dermatolog y. Skin lesion 79357335 L98 .9 She has a raised lesion under right eye. She will return the first of the year for referral to dermatolog y. [id number] Torsten [address] [address] 09/04/2022 08:42:57 09/07/2022 13:23:33 Epigastric pain 28337300 R10.13 Cobalamin deficiency 190 176528 E53.8 Hypothyroidism 58577914 E03.9 Hyperlipidemia 31772130 E78.5 [id number] Apurva [address] [address] 05/02/2022 13:44:30 05/02/2022 14:45:43 Cat bite - wound 375301504 W55.01XA Cat bite about 10:30 am on right 5th digit right hand. She works for the [employer]. She thinks the cat is up to date on vaccines, but is not for sure. Dr Polanco at bedside for evaluation also. No inguinal lymph node swelling noted. Xray ordered due to bite near PIP on the 5th digit. Dr Polanco saw xray and recommends pt, go to [facility] for [facility]BT due to possible fracture and IV ABT. Pt. made aware and verbalizes understand ing. Recommende d that she notify TV of any changes to wound appearance including swelling, pain. or if she develops a fever, chills, nausea or vomiting. F/u on Thursday. [id number] Apurva [address] [address] 05/06/2022 08:56:14 05/06/2022 10:27:46 Administration of tetanus vaccine 262975808 Z23 Discussed with pt. benefit of getting tetanus booster and recommende d at this time. Cat bite - wound 7162978 04 W55.01XA Pt. presents for f/u on cat bite to right 4th and 5th digits 4 days ago. She was started on amoxicilli n. Wounds from cat bite have improved.+ epithelial ization noted to wound beds on 4th and 5th digit of right hand, + erythema around periphery of wound beds. There is still some edema- pt unable to bend finger as of yet. Recommende d that she notify [facility] of any changes to wound appearance including swelling, pain. or if she develops a fever, chills, nausea or vomiting. F/u again in 1 week. [id number] Apurva [address] [address] 06/24/2022 16:24:04 06/24/2022 16:57:10 Osteoarthritis of knee 790949481 M17.0 Pt. reports she has osteoarthr itis of bilateral knees and sees Dr. Taylor- [facility] and need referral. Bilateral hearing loss 14058688 H91.93 Pt. requests referral for annual hearing exam. She wears hearing aid. Ophthalmic examination and evaluation 36187112 Z01.00 Pt. requesting referral for eye exam and evaluation . [id number] Apurva [address] [address] 09/01/2022 09:51:30 09/01/2022 10:41:03 Hypothyroidism 04928398 E03.9 Pt. has a h/x of hypothyroi dism and on levothyrox ine- possible cause of palpitatio ns. Plan: Check TSH and T4. Recommende d that patient call [facility] office for worsening symptoms or concerns. Cobalamin deficiency 190 538900 E53.8 Pt VitB12 was 165 at last visit in January. She had B12 injections and was recommende d to continue Vit B12 1000mcg daily. Plan: Check B12 levels. Epigastric pain 05095465 R10.13 Pt. is having epigastric pain. + epigastric tenderness . Also has pain between her shoulder blades. Reports occasional nausea. Plan: Orders as shown below. Intermitte nt palpitations 683819961 R00.2 Pt. reports possible decrease in palpitatio ns. I haven't stopped myself to say oh there it is . Plan: Orders as shown below. Recommende d that patient call [facility] office for worsening symptoms or concerns. [id number] [facility] [address] [place] [address] 09/09/2022 12:44:28 09/09/2022 13:28:40 Intermittent palpitations 699450424 R00.2 She has holter monitor pending. Her laboratory studies did not reveal any significan t abnormalit ies. Her thyroid functions have been normal. I discussed with her today it is hard for me to be able to identify what her palpitatio ns might be when we do not have those results back. It does not sound life-threa tening and it has been ongoing for greater than a year. She did tell me today that she pressed the symptom button on a few occasions, so she was symptomati c during that time frame. I discussed with her that we will be able to get the strips to know exactly what it is that she has been experienci ng. Has echocardio gram also scheduled with [facility] through her primary care's office. She also has multiple questions in regards to dietary issues as well as exercise. I encouraged heart healthy diet as well as moderate aerobic activity for 30 minutes a day, 5 days a week. [id number] Anupama [facility] [address] [place] [address] 09/04/2022 08:43:28 09/04/2022 08:56:40 Palpitations 16859744 R00.2 [id number]es Han [facility] [place] [place] [address] [place] [address] 09/09/2022 08:52:23 09/09/2022 08:59:05 Palpitations 17844003 R00.2 [id number] Apurva Mcknight APRN [facility] [place] [place] [address] [place] [address] 09/09/2022 14:39:28 09/09/2022 15:20:56 Adult health examination 456063351 Z00.00 Patient had adult health exam in clinic on today's date.Recom mend 150 minutes of physical activity per week.Recom mend patient ingest at least 5 servings of fruits and vegetables per day.Encour age patient on proper hydration. Discussed preventati ve care including colorectal screening and immunizati ons.Import ance of living will and advanced directives discussed. Medication review done 331579173 Z76.89 Please let us know if your prescripti on or medication s changes. Medication adherence, or taking medication s correctly, is generally defined as the extent to which patients take medication as prescribed by their doctors. This includes getting prescripti ons filled, rememberin g to take medication on time, and understand ing the directions . Common barriers to medication adherence include: the inability to pay for medication s, disbelief that the treatment is necessary/ helping, difficulty keeping up with multiple medication s and complex dosing schedules, confusion about how and when to take the medication . Poor adherence can interfere with the ability to treat many diseases, leading to greater complicati ons from the illness and a lower quality of life for patients. Risk assessment done 860 201122 Z76.89 [facility] and social supports that affect a patient's needs and goals are important. Please let us know if any of the following changes: Basic ADLs are self-care activities that an individual must accomplish in order to remain self sufficient . These include bathing, dressing, toileting, transferri ng, maintainin g continence , and feeding. Instrument al ADLs are higher level activities that individual s must perform or have help with to remain independen t in their homes. These include using the telephone, shopping, doing housework, doing laundry, preparing meals, driving, taking medication s, and managing money. Advance di rective discussed with patient 258397844 Z71.89 Advance directives are legal documents that allow you to spell out ahead of time what types of medical care you would want if you ever became unable to speak for yourself. These documents can help ensure that you get the care you want even if you have an unexpected serious illness or accident. Advance directives work best when they are part of a team effort. If you do not currently have advanced directives on file please discuss this with your [facility] Team. Screening for malignant neoplasm of colon 591052506 Z12.11 Cologuard last year and it was negative. No family or personal h/x of colon cancer.She reports no abnormal colonoscop ies in the past. Screening for osteoporosis 947157435 Z13.820 LAST DEXA 10/02/21- osteoporos is and on Alendronat e. Been off for 6 months because she is having a tooth extracted. Please let patient know she has osteoporos is, and I would recommend she start medication , however she would need to complete a dental exam if she plans to get any teeth extracted or any dental work prior to starting the medication as it has a side effect that can affect the jaw bone. I recommend that she continue to take Vitamin D 800U and Calcium 1200mg daily. I also encourage her to do weight bearing exercises and exercising daily. Screening mammography 24 728678 Z12.31 Pt. reports she may do mammogram after she moves. She reports no results because she haven't done it in awhile. Impacted c erumen in right ear 2952034538 443128 H61.21 She reports audiologis t states right ear with impacted cerumen. Will use Debrox- no need for ear irrigation at this time. Hypothyroidism 13842035 E03.9 Pt. is moving out of [place] and requesting med refill to [facility]. Patient presented for medication refill. Patient tolerating medication well at current dose without adverse effects. Refilled as below. Discussed plan with {{patient family* nicol valderramant and family car egiver ngoc ient and caregiver} }, who expressed understand ing. Follow up as noted below. Hyperlipidemia 76806053 E78.5 Pt. is moving out of state and requesting med refill to [facility]. Patient presented for medication refill. Patient tolerating medication well at current dose without adverse effects. Refilled as below. Discussed plan with {{patient* family pa tient and family car egiver pat ient and caregiver} }, who expressed understand ing. Follow up as noted below. Health Concerns Section Related Observation LastModified by Organization Detai ls LastModified Time None Recorded Concern Status LastModified by Organization Details LastModified Time None Recorded Advance Directives Directive N: Payers Encounter Date Sequence Insurance Name Policy Number Policy Tomas Covered Member ID Tomas Member ID Guarantor Name 09/04/2022 1 [employer] - [employer]OC[employer] - CAPITATION PLAN - DIVIDE (MEDICARE REPLACEMENT/A DVANTAGE - HMO) [id number] Cortes [id number] Izabel Cortes 09/04/2022 1 [employer] - [employer] - CAPITATION PLAN - DIVIDE (MEDICARE REPLACEMENT/A DVANTAGE - HMO) [id number] Cortes [id number] Izabel Cortes 09/09/2022 1 [employer] - [employer] - CAPITATION PLAN - DIVIDE (MEDICARE REPLACEMENT/A DVANTAGE - HMO) [id number] Cortes [id number] Izabel Cortes 09/09/2022 1 [employer] - [employer] - CAPITATION PLAN - DIVIDE (MEDICARE REPLACEMENT/A DVANTAGE - HMO) [id number] Cortes [id number] Izabel Cortes 09/09/2022 1 [facility] - FOCUS - CAPITATION PLAN - DIVIDE (MEDICARE REPLACEMENT/A DVANTAGE - HMO) [id number] Cortes [id number] Izabel Cortes Notes Date Note Type Note Provider Name and Address Organization Details Recorded Time 3 text/html Ms. Cortes is a 67 yo female with PMH of HLD, hypothyroidism who presents today for new patient evaluation of palpitations. She has recently discussed this with her PCP, who placed a holter monitor and this was just removed earlier today, so report download is not back yet. she has had palpitations for greater than 1 year. It feels like a rapid heart rate and she notices it more at rest, never with exertion. It lasts for less than 1 minute and resolves without any sort of further intervention. There are no other associated symptoms of chest pain, shortness of breath, dizziness or syncope. She does complain about some epigastric discomfort, so her primary care has done a rather extensive workup on her. She has multiple questions today in regards to dietary concerns. She lives on her own, so she admits that she is not the healthiest eater. Also due to her osteoarthritis of her knees, she admits that she is not as active as she knows that she should be. Other people have told her that she should try water aerobics, but she is afraid of the water. She is afraid to ride her bike. When she walks her knees cause her some discomfort. EKG with PCP on 09/01/22: NSR without acute changesEchocardiogram scheduled with LMI tomorrow ION BENJAMIN [facility] [place], [address], [facility] 09/09/2022 14:05:46 3 text/html HPI EPPVReported bypatient.Diet and Nutrition:diet is high in salt;high caloric intake; discussed diet improvement; She reports she eats a lot of boxed/ processed foods. She was advised to start Mediterranean diet- but she don't eat a lot of fish. Physical Activity:decreased physical activity; discussed exercise habits; Don't exercise much due to knee pain Depression Risk:never feels sad, empty, or tearful; no loss of interest in activities; no significant changes in weight; no sleep disturbances or insomnia; no agitation; no loss of energy; no feelings of worthlessness or guilt; no thoughts of suicide; no history of depression; no history of mood disorders Orientation:no disorientation to time; no disorientation to date; no disorientation to place Concentration and Memory:no decreased concentrating ability; no memory lapses or loss; does not forget words Hearing:wears hearing aids Vision:worse near; Wears readers. she sees eye doctor yearly. Falls Risk Assessment:no frequent falls while walking; no fall in the past year; no fall since last visit; no dizziness/vertigo Home Safety:no unsafe abida hazzards; no unsafe stairs; no unsafe gas appliances; working smoke/CO detectors; wears protective head gear for biking/high velocity; use of seatbelts; practicing 'safer sex'; no vision or hearing loss while driving; no fire arms; has hand bars in the bathroom/shower; good lighting in the home Patient is presenting with a chief complaint of: EPPV Patient denies fever, chills, chest pain, SOB, nausea or vomiting. Areas of concern 1. EPPV Patient Concerns: with getting adequate exercise? no with balance, walking or falls? no with bladder control or leakage? no Apurva Mcknight, STATE EDITOR [address] [place], [address], [facility] 09/09/2022 15:25:05 OBGyn Episode No OBEpisode recorded.
[2024-07-08 14:48] LABS: Phosphorus 3.4 mg/dL (2.7-4.5)
[2024-07-12 11:54] LABS: Prot Elec - Albumin 4.3 g/dL (3.8-4.8); Prot Elec - Alpha1 0.3 g/dL (0.2-0.3); Prot Elec - Alpha2 0.7 g/dL (0.5-0.9); Prot Elec - Beta 1 0.4 g/dL (0.4-0.6); Prot Elec - Beta 2 0.4 g/dL (0.2-0.5); Prot Elec - Gamma 0.9 g/dL (0.8-1.7)
== END 2024-07-08 11:24 | disposition home or self-care (01) ==
LOC: HO.WFDLDS 11:23
PROVIDERS: Visit Provider Internal Medicine Endocrinology, Diabetes & Metabolism
DX: M81.0 Age-related osteoporosis without current pathological fracture (principal)
CPT/HCPCS: 36415; 84100; 84165

== ENCOUNTER 2024-07-13 14:10 | Outpatient (REF) | payer MEDICARE, SELFPAY ==
[2024-07-13 14:52] LABS: Total Volume 24 Hour Urine 925 mL
[2024-07-13 15:14] LABS: Creatinine, 24Hr Urine 0.9 G/Day (1.0-2.0); Creatinine, mg/dL 99.61
--- OUTSIDE RECORDS SUMMARY | 2024-07-13 15:25 | XMS_ITS | Continuity of Care Document ---
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 [facility] , [place], [place], [address] [place] [address]. tel:[phone] [facility], [address] [place] [address], [place], [place], [address] [place] [address], [facility] BRWN glaucoma suspect (chief complaint) Open angle with borderline findings and low glaucoma risk in both eyesPresence of intraocular lensOther secondary cataract, right eyePosterior vitreous detachment of left eyePresbyopia 3 Fenton OD Eliazar. [address] [place] [address], [place], [place], [address] [place] [address] , . [phone] Referring Provider: Eliazar Tucker OD A, [address] [place] [address] , [place], [place], [address] [place] [address] . tel:[phone] [place] [address], [place], [place], [address] [place] [address], [facility] Open angle with borderline findings, high risk, bilateral Jul-0 3 Garrett OD Eliazar. [address] [place] [address], [place], [address] [place] [address] , . [phone] Referring Provider: Eliazar Tucker OD A, [address] [place] [address] , [place], [place], [address] [place] [address] . tel:[phone] Offic/outpt E&m Estab Low-mod [facility], [address] [place] [address], [place], [address] [place] [address], [facility], [place] Glaucoma (chief complaint)F loater (chief complaint) Open angle with borderline findings, high risk, bilateralPresenc e of intraocular lensOther secondary cataract, right eyePosterior vitreous detachment of left eye Mar-0 2 Fenton OD Eliazar. [facility] , [place], [place], [address] [place] [address]. [phone] Referring Provider: Eliazar Tucker OD A, [facility] , [place], [place], [address] [place] [address] . tel:[phone] [facility], [address] [place] [address], [place], [place], [address] [place] [address] [facility] BR Open angle with borderline findings, high risk, bilateral Sep- 2 Fenton OD Eliazar. [address] [facility] 230, [place], [place], [address] [place] [address]. [phone] Referring Provider: Eliazar Tucker OD A, [address] [facility] [address], [place], [address] . tel:[phone] Offic/outpt E&m Estab Low-mod [facility], [address] [place] [address], [place], [address] [place] [address] [facility] BR Follow Up of glaucoma suspect (chief complaint) Open angle with borderline findings, high risk, bilateralPresenc e of intraocular lens Aug- 2 Garrett OD Eliazar. [address] [place] [address] 230, [place], [place], [address] [place] [address] , . [phone] Referring Provider: Eliazar Tucker OD A, [address] [place] [address] 230, [place], [address] . tel:[phone] [facility], [address] [place] [address], [place], [address] [place] [address], [facility] BR Open angle with borderline findings and low glaucoma risk in both eyes Aug- 0 2 Garrett OD Eliazar. [address] [place] [address], [place], [address] [place] [address] , . [phone] Referring Provider: Yovany [place]indo DO, [address] [facility], [place], [address] . tel:[phone] [facility], [address] [place] [address], [place], [id number], [facility] Glaucoma suspect evaluation (chief complaint) Open angle with borderline findings and low glaucoma risk in both eyesPresence of intraocular lensPosterior vitreous detachment of both eyesOther secondary cataract, right eye 2 Fenton OD Eliazar. [address], [place], [place], [id number] , . tel:[phone] Referring Provider: Yovany [place]indo DO [address] [place], [address] . 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 Yovany Galindo DO. [...]
[2024-07-15 15:34] LABS: Calcium, 24 Hr Urine 103 mg/24 h; Calcium/Creatinine Ratio 117 mg/g creat (30-275); Creatinine 24Hr Urine 0.88 g/24 h (0.50-2.15)
[2024-07-21 01:49] LABS: N-Telopeptide 44 (see note); NTXCreaRU 107 mg/dL (20-275)
== END 2024-07-13 14:11 | disposition home or self-care (01) ==
LOC: HO.LNP 14:10
PROVIDERS: Visit Provider Internal Medicine Endocrinology, Diabetes & Metabolism
DX: M81.0 Age-related osteoporosis without current pathological fracture (principal)
CPT/HCPCS: 82340; 82523; 82570; 86335

== ENCOUNTER 2024-09-19 13:21 | Outpatient (AMB) | payer MEDICARE, SELFPAY ==
--- NOTE | 2024-09-19 13:32 | A.OFFVIS_ITS ---
Vital Signs 09/19/24 13:34 Height 5 ft 6.09 in Weight 160 lb 14.999 oz BMI 25.9 BP 104/64 Blood Pressure Location Rt brachial Position Sitting Pulse 78 Pulse Source Pulse Oximeter Pulse Oximetry (%) 97 Oxygen Delivery Method Room Air Intake Visit Reasons: f/u osteoporosis Intake Note: Patient present today for Osteoporosis follow up. Milieu Therapist Required: No Accompanied by: Self / Same As Patient Allergies No Known Allergies Allergy (Verified 09/19/24 13:35) Medication List - Last Reconciled 09/19/24 by Vernon Cheatham MD acetaminophen (Tylenol Extra Strength) 500 mg PO Q6H PRN atorvastatin 20 mg PO DAILY 90 days cholecalciferol (vitamin D3) 50 mcg PO DAILY levothyroxine 75 mcg PO DAILY 90 days HPI Comments Details: 69 YO Female with is seen in consultation at the request of PCP for Osteoporosis. First diagnosed in few yrs ago .Has not seen specialist before Received treatment in the past with alendronate, from to [id number] for 3 years. Tolerated treatment well without complication. No history of pathologic fracture or ONJ. Has several servings of dietary calcium per day in the form of cheese, broccoli , ice cream , milk . Not Takes Calcium supplement [] mg daily in divided doses. Takes 2000 IU of Vitamin D daily. Denies ever using PPI, anticoagulant, antiepileptic or glucocorticoid medication. Does weight bearing exercise 2 days per week in the form of knee rehab . Fracture history: No Height loss: 1 inch [employer] history: Menarche at age 14- Menopause at age 56 - nl menses Denies history of Kidney stones: Has family history of Osteoporosis but no hip fracture. UTD on dental cleanings and sees dentist every 6 months. No planned upcoming dental work or extractions. DXA dated 03/30: FINDINGS: LEFT FEMUR, NECK: BMD 0.704 g/cm2, Z-score -1.0, T-score -2.4, osteopenia. LEFT FEMUR, TOTAL: BMD 0.669 g/cm2, Z-score -1.5, T-score -2.7, osteoporosis. AP SPINE L1-L4: BMD 1.028 g/cm2, Z-score 0.2, T-score -1.3, osteopenia. IDENTIFIED RISK FACTORS: Height loss, low calcium intake, osteoporosis, menopause. HISTORY OF FRACTURE: None listed. MEDICATIONS: Bisphosphonates. MM/XR DEXA axial skeleton IMPRESSION: 1. DIAGNOSIS: Osteoporosis based on the lowest T-score value of -2.7 in the total femur applying World Health Organization criteria. Labs: The patient is a 69-year-old female presenting with osteoporosis management and follow-up. She has a diagnosis of osteoporosis and has been on Alendronate (Fosamax) therapy for three years, which has shown some effectiveness in reducing bone turnover markers. Her bone density levels remain in a borderline range, necessitating careful monitoring. The patient is expected to undergo another bone density test in six months to evaluate progress. Despite supplementing calcium and attempting vitamin D intake through diet, adherence to supplementation remains inconsistent. Additionally, the patient's osteoarthritis in the knee has resulted in some physical limitations, although it does not currently require surgical intervention. She is proactive in managing this by engaging in regular exercise, focusing on balance and strength training. - Labs: Urine NTX (N-telopeptide of type I collagen) is reported, indicating os teoporotic changes with a reading of 44 in the specified range. [facility] Medical History (Updated 06/17/24 @ 19:21 by Mony Mistry, [facility]) Arthritis of both feet Arthritis of both hands Thyroid disease Palpitation Surgical History Hx of total knee replacement Hx of cataract removal with insertion of prosthetic lens Family History Mother High blood pressure Maternal Grandmother Cardiovascular disease Paternal Grandmother Cardiovascular disease Social History Household Members: None Both parents involved: No Caregiver staying overnight: No Housing: House Are you a primary healthcare social worker to a significant other at home: No Do you presently have visiting nurse or other home services: No 75 years or older and lives alone: No Alcohol intake: current Alcohol intake frequency: holidays/special occasions only Alcohol type: wine and hard liquor Patient Tobacco Use Status: Never used Tobacco e-Cigarette/Vaping Use: Never Used service: No Current occupational status: retired Cognitive needs: No Hearing needs: Yes Vision needs: No Physical Exam Vital Signs: Last Vital Signs Pulse 78 09/19/24 13:34 BP 104/64 09/19/24 13:34 Pulse Ox 97 09/19/24 13:34 Oxygen Delivery Method Room Air 09/19/24 13:34 BMI result Body Mass Index 25.9 Assessment & Plan Assessment & Plan (1) Osteoporosis: Code(s): M81.0 - Age-related osteoporosis without current pathological fracture Category: Medical Qualifiers: Osteoporosis type: unspecified Encounter type: initial encounter Plan: This 69-year-old white female with a history of osteoporosis. Was treated with the alendronate for 3 years. Secondary causes have been ruled out. Urine NTX is suppressed Will continue calcium and vitamin-D supplementation. We will recheck DEXA in 6 months along with the urine NTX. Could consider initiation of anti resorptive at that time vs observation depending upon above During the consultation, I clarified the current status of the patient's osteoporosis and highlighted the importance of maintaining consistent calcium and vitamin D supplementation. We discussed her exercise routine, emphasizing its role in bone and balance health. Future bone density testing was scheduled for six months to evaluate treatment progress. If there is a deterioration in bone health, I explained the possibility of revisiting pharmacologic options, though pausing medication was preferred due to the patient's stable condition. The complexities and costs of alternatives like Forteo and Evenity were detailed, alongside potential complications associated with bisphosphonates. I emphasized continuing weightbearing activities to enhance bone resilience. For osteoarthritis, continued symptom management and preventive measures against falls were discussed, underscoring non-surgical approaches. We concluded by revisiting the patient's comfort with the management plan, where she concurred with observations and recommendations. - Take calcium supplements regularly to achieve a total intake of 1200 mg per day. - Take vitamin D supplements consistently. - Engage in balance and weightbearing exercises at least twice a week. - Maintain a safe home environment to prevent falls. - Return for follow-up bone density test in six months. - Orders: Orders XR DEXA axial skeleton 6 Months M81.0 - Age-related osteoporosis without current pathological fracture Collagen Crosslinks NTX 6 Months M81.0 - Age-related osteoporosis without current pathological fracture Coding Level of Care Code Est Pt Level 3 (38387) Diagnoses Osteoporosis M81.0 Osteoporosis type: unspecified Encounter type: initial encounter
[2024-09-19 13:34] VITALS: BP 104/64; PULSE 78; O2SAT 97; BMI 25.9
--- OUTSIDE RECORDS SUMMARY | 2024-09-19 15:23 | XMS_ITS ---
Author Organization [facility] Address [address] [place] [address] [address] [place] [address] Care Team Providers Care Operations Manager Assistant Name Role Phone Kimberly HUANG, Sheri Primary Care Provider Amelia dwayneilaBashir [facility] [phone] REASON FOR VISIT MR request Encounters Encounter Location Date Provider Diagnosis [facility] [address] [place] [address] 04/01/2023 Bashir Taylor Plan Of Treatment No Information Progress Notes * Izabel CORTES SDOB:[birth year] (68 yo F)Acc No.[id number]:04/01/2023 Patient:?SophiaIzabel :1955???Age:68 Y???Sex:Female Address:[address] [place] [id number] * true * Date:? Generated for Juan garcia/Lilo/eTransmitting on:?09/19/2024 03:23 PM EDT
--- OUTSIDE RECORDS SUMMARY | 2024-09-19 15:23 | XMS_ITS | Data Portability ---
Author Organization [facility] Address [address] [place] [address] Care Team Providers Care Central Service Technician Name Role Phone VIKY MCLEOD Primary Care Provider [phone] Assessment Encounter Date Assessment Date Assessment LastModified [...] diff 2021 023 ONUR [facility], [address] [place], [address], 3 05:08:35 amylase + lipase, serum 2022 023 ONUR [facility], [address] [place], [address], 3 05:08:39 gamma-glut amyl transferas e (ggt), serum 2022 023 ONUR [facility], [address] [place], [address], 3 05:08:40 lipid panel, serum 2021 023 ONUR [facility], [address] [place], [address], 3 05:08:37 CMP, serum or plasma 2021 023 ONUR [facility], [address] [place], [address], 3 05:08:36 TSH + free T4, serum 2021 023 ONUR [facility], [address] [place], [address], 3 05:08:34 vitamin B12 + folate, serum or blood 2022 023 ARONA [facility], [address] [place], [address], 3 05:08:38 Referral None recorded. Procedures None recorded. Surgeries None recorded. Imaging holter monitor 2022 023 [facility], [address] [place], [address], 3 09:43:32 holter monitor 2022 023 [facility], [address] [place], [address], 3 09:43:38 Medication Orders atorvastat in 20 mg tablet 2022 023 ONUR [facility], [address] [place] [address], [address], [place], [place], [id number], 3 15:25:02 levothyrox ine 75 mcg tablet 2022 023 ONUR [facility], [address] [facility], [address], [place], [place], [id number], 3 15:25:02 Patient TargetsNo targets recorded. Patient Instructions Encounter Date Encounter Id Patient Instructions Last Modified By Organization Details Last Modified Time 09/09/2022 [id number] hearing screening* [email or web address] Not available 09/09/2022 15:25:00 Reason for Referral None Reported. Results Created Date Observation Date Name Description Value Unit Range Abnormal Flag Note LastModifiedBy Organization Detail LastModifiedTime 09/05/1909/05/2022 TSH+F REE T4 TSH 1.420 uIU/m L 0.450- 4.500 Not Available [facility] ([facility]) [address] [place], [address], 09/05/2022 05:08:34 09/05/19 23 09/05/2022 TSH+F REE T4 T4,free(dire ct) 1.34 NG/dL 0.82-1 .77 Not Available [facility] ([facility]) [address] [place], [address], 09/05/2022 05:08:34 09/05/19 23 09/04/2022 CBC WITH DIFFE RENTI AL/PL ATELE T WBC 5.4 x10e3 /uL 3.4-10 .8 Not Available [facility] ([facility]) [address] [place], [address], 09/05/2022 05:08:35 09/05/19 23 09/04/2022 CBC WITH DIFFE RENTI AL/PL ATELE T RBC 4.55 x10e6 /uL 3.77-5 .28 Not Available [facility] ([facility]) [address] [place], [address], 09/05/2022 05:08:35 09/05/19 23 09/04/2022 CBC WITH DIFFE RENTI AL/PL ATELE T hemoglobin 13.6 g/dL 11.1-1 5.9 Not Available [facility] ([facility]) [address] [place], [address], 09/05/2022 05:08:35 09/05/19 23 09/04/2022 CBC WITH DIFFE RENTI AL/PL ATELE T hematocrit 40.3 % 34.0-4 6.6 Not Available [facility] ([facility]) [address] [facility], [place], [address], 09/05/2022 05:08:35 09/05/19 23 09/04/2022 CBC WITH DIFFE RENTI AL/PL ATELE T MCV 89 fL 79-97 Not Available [facility] ([facility]) [address] [facility], [place], [address], 09/05/2022 05:08:35 09/05/19 23 09/04/2022 CBC WITH DIFFE RENTI AL/PL ATELE T MCH 29.9 pg 26.6-3 3.0 Not Available [facility] ([facility]) [address] [facility], [place], [address], 09/05/2022 05:08:35 09/05/19 23 09/04/2022 CBC WITH DIFFE RENTI AL/PL ATELE T MCHC 33.7 g/dL 31.5-3 5.7 Not Available [facility] ([facility]) [address] [facility], [place], [address], 09/05/2022 05:08:35 09/05/19 23 09/04/2022 CBC WITH DIFFE RENTI AL/PL ATELE T RDW 12.0 % 11.7-1 5.4 Not Available [facility] ([facility]) [address] [facility], [place], [address], 09/05/2022 05:08:35 09/05/19 23 09/04/2022 CBC WITH DIFFE RENTI AL/PL ATELE T platelets 265 x10e3 /uL 150-45 0 Not Available [facility] ([facility]) [address] [facility], [place], [address], 09/05/2022 05:08:35 09/05/19 23 09/04/2022 CBC WITH DIFFE RENTI AL/PL ATELE T neutrophils 52 % not estab. Not Available [facility] ([facility]) [address] [facility], [place], [address], 09/05/2022 05:08:35 09/05/19 23 09/04/2022 CBC WITH DIFFE RENTI AL/PL ATELE T lymphs 36 % not estab. Not Available [facility] ([facility]) [address] [facility], [place], [address], 09/05/2022 05:08:35 09/05/19 23 09/04/2022 CBC WITH DIFFE RENTI AL/PL ATELE T monocytes 9 % not estab. Not Available [facility] ([facility]) [address] [facility], [place], [address], 09/05/2022 05:08:35 09/05/19 23 09/04/2022 CBC WITH DIFFE RENTI AL/PL ATELE T eos 2 % not estab. Not Available [facility] ([facility]) [address] [facility], [place], [address], 09/05/2022 05:08:35 09/05/19 23 09/04/2022 CBC WITH DIFFE RENTI AL/PL ATELE T basos 1 % not estab. Not Available [facility] ([facility]) [address] [facility], [place], [address], 09/05/2022 05:08:35 09/05/19 23 09/04/2022 CBC WITH DIFFE RENTI AL/PL ATELE T immature cells PROMOTIONAL MARKETING ANALYST Not Available [facility] ([facility]) [address] [place], [address], 09/05/2022 05:08:35 09/05/19 23 09/04/2022 CBC WITH DIFFE RENTI AL/PL ATELE T neutrophils (absolute) 2.8 x10e3 /uL 1.4-7. 0 Not Available [facility] ([facility]) [address] [facility], [place], [address], 09/05/2022 05:08:35 09/05/19 23 09/04/2022 CBC WITH DIFFE RENTI AL/PL ATELE T lymphs (absolute) 1.9 x10e3 /uL 0.7-3. 1 Not Available [facility] ([facility]) [address] [facility], [place], [address], 09/05/2022 05:08:35 09/05/19 23 09/04/2022 CBC WITH DIFFE RENTI AL/PL ATELE T monocytes(ab solute) 0.5 x10e3 /uL 0.1-0. 9 Not Available [facility] ([facility]) [address] [facility], [place], [address], 09/05/2022 05:08:35 09/05/19 23 09/04/2022 CBC WITH DIFFE RENTI AL/PL ATELE T eos (absolute) 0.1 x10e3 /uL 0.0-0. 4 Not Available [facility] ([facility]) [address] [facility], [place], [address], 09/05/2022 05:08:35 09/05/19 23 09/04/2022 CBC WITH DIFFE RENTI AL/PL ATELE T baso (absolute) 0.0 x10e3 /uL 0.0-0. 2 Not Available [facility] ([facility]) [address] [facility], [place], [address], 09/05/2022 05:08:35 09/05/19 23 09/04/2022 CBC WITH DIFFE RENTI AL/PL ATELE T immature granulocytes 0 % not estab. Not Available [facility] ([facility]) [address] [facility], [place], [address], 09/05/2022 05:08:35 09/05/19 23 09/04/2022 CBC WITH DIFFE RENTI AL/PL ATELE T immature grans (abs) 0.0 x10e3 /uL 0.0-0. 1 Not Available [facility] ([facility]) [address], [place], [address], 09/05/2022 05:08:35 09/05/19 23 09/04/2022 CBC WITH DIFFE RENTI AL/PL ATELE T NRBC PROMOTIONAL MARKETING ANALYST Not Available [facility] ([facility]) [address], [place], [address], 09/05/2022 05:08:35 09/05/19 23 09/04/2022 CBC WITH DIFFE RENTI AL/PL ATELE T hematology comments: PROMOTIONAL MARKETING ANALYST Not Available [facility] ([facility]) [address] [facility], [place], [address], 09/05/2022 05:08:35 09/05/19 23 09/05/2022 COMP. METAB OLIC PANEL (14) glucose 88 mg/dL 70-99 Not Available [facility] ([facility]) [address] [facility], [place], [address], 09/05/2022 05:08:36 09/05/19 23 09/05/2022 COMP. METAB OLIC PANEL (14) BUN 11 mg/dL 8-27 Not Available [facility] ([facility]) [address] [facility], [place], [address], 09/05/2022 05:08:36 09/05/19 23 09/05/2022 COMP. METAB OLIC PANEL (14) creatinine 0.75 mg/dL 0.57-1 .00 Not Available [facility] ([facility]) [address] [facility] [place], [address], 09/05/2022 05:08:36 09/05/19 23 09/05/2022 COMP. METAB OLIC PANEL (14) eGFR 88 mL/mi n/1.7 3 >59 Not Available [facility] ([facility]) [address] [facility], [place], [address], 09/05/2022 05:08:36 09/05/19 23 09/05/2022 COMP. METAB OLIC PANEL (14) BUN/creatini ne ratio 15 12-28 Not Available [facility] ([facility] [address] [facility] [place], [address], 09/05/2022 05:08:36 09/05/19 23 09/05/2022 COMP. METAB OLIC PANEL (14) sodium 146 mmol/ L 134-14 4 above high normal Not Available [facility] ([facility]) [address] [facility] [place], [address], 09/05/2022 05:08:36 09/05/19 23 09/05/2022 COMP. METAB OLIC PANEL (14) potassium 4.4 mmol/ L 3.5-5. 2 Not Available [facility] ([facility]) [address] [facility], [place], [address], 09/05/2022 05:08:36 09/05/19 23 09/05/2022 COMP. METAB OLIC PANEL (14) chloride 106 mmol/ L 96-106 Not Available [facility] ([facility]) [address] [facility] [place], [address], 09/05/2022 05:08:36 09/05/19 23 09/05/2022 COMP. METAB OLIC PANEL (14) carbon dioxide, total 24 mmol/ L 20-29 Not Available [facility] ([facility]) [address] [facility], [place], [address], 09/05/2022 05:08:36 09/05/19 23 09/05/2022 COMP. METAB OLIC PANEL (14) calcium 9.4 mg/dL 8.7-10 .3 Not Available [facility] ([facility]) [address] [facility] [place], [address], 09/05/2022 05:08:36 09/05/19 23 09/05/2022 COMP. METAB OLIC PANEL (14) protein, total 7.1 g/dL 6.0-8. 5 Not Available [facility] ([facility]) [address] [facility], [place], [address], 09/05/2022 05:08:36 09/05/19 23 09/05/2022 COMP. METAB OLIC PANEL (14) albumin 4.4 g/dL 3.8-4. 8 Not Available [facility] ([facility]) [address] [facility], [place], [address], 09/05/2022 05:08:36 09/05/19 23 09/05/2022 COMP. METAB OLIC PANEL (14) globulin, total 2.7 g/dL 1.5-4. 5 Not Available [facility] ([facility]) [address] [facility], [place], [address], 09/05/2022 05:08:36 09/05/19 23 09/05/2022 COMP. METAB OLIC PANEL (14) A/G ratio 1.6 1.2-2. 2 Not Available [facility] ([facility]) [address] [facility], [place], [address], 09/05/2022 05:08:36 09/05/19 23 09/05/2022 COMP. METAB OLIC PANEL (14) bilirubin, total 0.6 mg/dL 0.0-1. 2 Not Available [facility] ([facility]) [address] [facility], [place], [address], 09/05/2022 05:08:36 09/05/19 23 09/05/2022 COMP. METAB OLIC PANEL (14) alkaline phosphatase 113 IU/L 44-121 Not Available [facility] [address] [facility], [place], [address], 09/05/2022 05:08:36 09/05/19 23 09/05/2022 COMP. METAB OLIC PANEL (14) AST (SGOT) 21 IU/L 0-40 Not Available [facility] ([facility]) [address] [facility] [place], [address], 09/05/2022 05:08:36 09/05/19 23 09/05/2022 COMP. METAB OLIC PANEL (14) ALT (SGPT) 13 IU/L 0-32 Not Available [facility] ([facility]) [address] [facility] [place], [address], 09/05/2022 05:08:36 09/05/19 23 09/05/2022 LIPID PANEL cholesterol, total 157 mg/dL 100-19 9 Not Available [facility] ([facility]) [address] [facility] [place], [address], 09/05/2022 05:08:37 09/05/19 23 09/05/2022 LIPID PANEL triglyceride s 88 mg/dL 0-149 Not Available [facility] ([facility]) [address] [facility], [place], [address], 09/05/2022 05:08:37 09/05/19 23 09/05/2022 LIPID PANEL HDL cholesterol 51 mg/dL >39 Not Available [facility] ([facility] [address] [facility] [place], [address], 09/05/2022 05:08:37 09/05/19 23 09/05/2022 LIPID PANEL VLDL cholesterol jonathan 17 mg/dL 5-40 Not Available [facility] ([facility] [address] [facility] [place], [address], 09/05/2022 05:08:37 09/05/19 23 09/05/2022 LIPID PANEL LDL chol calc (nih) 89 mg/dL 0-99 Not Available [facility] [address] [facility] [place], [address], 09/05/2022 05:08:37 09/05/19 23 09/05/2022 LIPID PANEL comment: PROMOTIONAL MARKETING ANALYST Not Available [facility] ([facility]) [address] [facility], [place], [address], 09/05/2022 05:08:37 09/05/19 23 09/05/2022 VITAM IN B12 AND FOLAT E vitamin B12 572 pg/mL 232-12 45 Not Available [facility] ([facility]) [address], [place], [address], 09/05/2022 05:08:38 09/05/19 23 09/05/2022 VITAM IN B12 AND FOLAT E folate (folic acid), serum 11.1 NG/mL >3.0 A serum folat e radha ntrat ion of less than 3.1 ng/mL is consi dered to repre sent clini jonathan defic iency . Not Available [facility] ([facility]) [address] [facility], [place], [address], 09/05/2022 05:08:38 09/05/19 23 09/05/2022 SCARLET+L IPASE amylase 53 U/L 31-110 Not Available [facility] ([facility]) [address] [facility] [place], [address], 09/05/2022 05:08:39 09/05/19 23 09/05/2022 SCARLET+L IPASE lipase 37 U/L 14-72 Not Available [facility] ([facility]) [address] [facility], [place], [address], 09/05/2022 05:08:39 09/05/19 23 09/05/2022 GGT GGT 15 IU/L 0-60 Not Available [facility] ([facility]) [address] [facility], [place], [address], 09/05/2022 05:08:39 09/02/19 23 09/01/2022 landen r monit or No observ ation record ed. [email or web address] [facility] [address] [place], [address], 09/01/2022 10:55:15 09/02/19 23 09/04/2022 landen r monit or No observ ation record ed. [email or web address] [address], [address], 09/04/2022 10:06:53 09/02/19 23 09/09/2022 landen r monit or No observ ation record ed. [email or web address] [address], [address], 09/10/2022 08:20:09 09/03/19 23 09/01/2022 elect jenny ness am No observ ation record ed. [email or web address] [address], [address], 09/02/2022 12:56:39 09/10/19 23 09/09/2022 landen r [...] for this referr al. CC: https: //[email or web address] /image presen tation /Login Study. aspx?a ccessi onNumb wi=[phone] [email or web address] [facility] [address], [place], [address], 09/15/2022 11:50:12 09/11/19 23 09/10/2022 US, hardeep mattson r No observ ation record ed. [email or web address] [facility] [address], [place], [address], 09/12/2022 16:18:55 09/11/19 23 09/04/2022 landen r monit or No observ ation record ed. [email or web address] [employer] [address] [facility] [address], [place], [address], 10/07/2022 11:06:16 09/12/19 23 09/11/2022 US, echoc ardio gram, trans thora cic, compl ete, w/ color flow No observ ation record ed. [email or web address] [address], [place], [address], 10/28/2023 12:51:14 09/12/19 23 09/10/2022 US, echoc [...] you for this referr CC: https: //[email or web address] [email or web address] /image presen tation /Login Study. aspx?a ccessi onNumb nr=[id number] [email or web address] [facility] [address], [place], [address], 09/15/2022 11:50:12 Result Notes None recorded. Problems Name Problem SNOMED Code Status Onset Date Resolution Date Notes Provider Name and Address Organization Details Recorded Time Irritabl e bowel syndrome 70954943 Active Not Available [facility] 2 20:39:40 Hyperlip idemia 60593127 Active 2020 Not Available [facility] 2 20:39:40 Hypothyr oidism 68034707 Active 2020 Not Available [facility] 2 20:39:40 Osteopor osis 98311928 Completed 202003/26/2021 Janina Sena PA-C [facility] [place], [address] , [facility] - [facility] 1 15:57:09 Osteopor osis 35064975 Active 2020 Bone Density 08/09/2019 Osteopor osis Not Available [facility] 2 20:39:40 Vitamin deficien cy 48318693 Completed 202005/10/2021 Yovany Galindo DO [address] [place], [address] , [facility] - [facility] 1 07:42:36 Vitamin D deficien cy 62638817 Active 2020 Not Available [facility] 2 20:39:40 COVID-19 126392200 Active 202110/29/19 22-Posit alpa [place], [place] - TV_[facility] 2 14:00:27 Urge incontin ence of urine 75867201 Active 2021 Apurva Mcknight, DENTAL EQUIPMENT TECHNICIAN [address] [place], [address] , [place] [facility] 2 07:45:14 Intermit tent palpitat ions 521575728 Active 2021 Apurva Mcknight DENTAL EQUIPMENT TECHNICIAN [facility] [place], [address] , [facility] - [facility] 2 12:40:44 Bilatera l tinnitus 29989749368 02 Active 2021 Apurva Mcknight DENTAL EQUIPMENT TECHNICIAN [facility] [place], [address] , [place] [facility] 2 12:41:07 Cobalami n deficien cy 201346804 Active 2021 Apurva Mcknight DENTAL EQUIPMENT TECHNICIAN [facility] [place], [address] , [facility] - [facility] 2 07:54:12 Osteoart hritis 131760802 Active 2021 Sheri vo MD [address] [place], [address] , [place] [facility] 2 16:10:48 Epigastr ic pain 70040885 Active 2022 Apurva Mcknight DENTAL EQUIPMENT TECHNICIAN [address] [place], [address] , [place] [facility] 3 10:21:56 Impacted cerumen in right ear 23257193948 81367 Active 2022 Apurva Mcknight, DENTAL EQUIPMENT TECHNICIAN [address] [place], [address] , [place] [facility] 3 15:03:59 Problem Notes Documentation Provider Name and Address Organization Details Recorded Time Sound Effects Supervisor Consult Note : [facility] ? [address] [facility] [address]JPSPURE, Julie S (id #[id number], : 1955) ? Date:09/09/2022? RE:Izabel Cortes, :1955? [...] received this fax in error, please visit [email or web address] to notify the sender and confirm that the information will be destroyed. If you do not have internet access, please call to notify the sender and confirm that the information will be destroyed. Thank you for your attention and cooperation. [ID:[id number]] ? Patient Sophia Boudreaux 67yo, F #[id number] 1955 ? ? ? Patient Demographics: Address [address] [place] [id number] Insurance [facility] - Capitation Plan (Medicare Replacement/Advantage - HMO) Cell ? ? ? Encounter Notes: Encounter Reason/DateTransition of Care Encounter new patient New patient c/o occ palpitations for a few months. Holter monitor 09/04/22 09/09/2022 - 01:00PM - [facility]ty Care at [facility] History of Present IllnessMsAlejandro Cortes is a [...] of arterial peripheral vascular disease or venous insufficiencyPSYCHIATRIC: Denies history of depression Vitals Ht: 5 ft 7 in09/09/2022 12:53 pm Wt: 156.4 lbs With nhziiti6109/09/2022 12:54 pm BMI: 24.504 12:54 pm BP: [...] Apurva Mcknight APRN for PREVENTIVE VISIT at [facility] on 09/09/2022 at 03:00 PM ? ? [...] BEDTIME SPIT BUT DONT RINSE FOR 30 YPPQRFU26/03/23?filled surescripts sodium fluoride 1.1 % dental gelBRUSH TEETH EVERY DAY FOR 2 MINUTES AT BEDTME AND SPIT OUT. DO NOT RINSE FOR 30 DQYEZAZ93/02/23?filled surescripts Vitamin D3(1) 2000 IU tablet QD05/28/21?entered [...] ?# Mfr. Exp. Date VIS VIS Given Welt [employer] COVID-19 COVID-19, mRNA, LNP-S, PF, 30 mcg/0.3 mL dose ([employer]) 03/28/22 COVID-19, mRNA, LNP-S, PF, 30 mcg/0.3 mL dose, alfred-sucrose ([employer]) 12/19/21 Intramuscular [id number] [employer] COVID-19, mRNA, LNP-S, PF, 30 mcg/0.3 mL dose ([employer]) 03/25/21 Intramuscular [id number] Pfizer, Inc COVID-19, mRNA, LNP-S, PF, 30 mcg/0.3 mL dose ([employer]) 09/22/20 COVID-19, mRNA, LNP-S, PF, 30 mcg/0.3 mL dose ([employer]) 09/01/20 Diphtheria, Tetanus Td (adult) preservative free 05/06/22 0.5 mL Intramuscular Arm, Left Upper [id number] Sanofi Paste[employer] 03/07/23 Td 01/11/2021 05/06/22 Ashlee Irwin Influenza influenza, injectable, quadrivalent 03/28/22 influenza, high-dose, quadrivalent 03/25/21 Intramuscular [id number] Sanofi Pasteur influenza, injectable, quadrivalent 03/08/20 ? ? ? Electronically Signed by: ION BENJAMIN, GISLE ? ? ? Ashlee Irwin [facility] 09/09/2022 14:21:59 Procedures Surgical History Date Name Laterality Status Provider Name and Address Organization Details Recorded Time 09/05/19 23 Phlebotomy Blood Draw completed Torsten Delgado [facility] 09/04/2022 10:07:02 02/26/20 22 Phlebotomy Blood Draw completed Katerina Sears [facility] 02/25/2022 09:58:01 01/23/20 22 Phlebotomy Blood Draw completed Torsten Del[facility] 01/22/2022 09:33:26 11/20/19 22 Phlebotomy Blood Draw cancelled Katerina Sears [facility] 11/18/2021 15:03:14 05/08/20 21 Preventative Visit Discussed with Patient completed Anh Mcclendon [facility] 05/07/2021 14:21:36 05/01/20 21 Phlebotomy Blood Draw completed Katrina Taylor [facility] 05/01/2021 10:34:08 Imaging Results Imaging Date Name Status LastModified by Organization Details LastModified Time 09/01/2022 holter monitor completed [email or web address] [address], [address], 09/01/2022 10:55:15 09/04/2022 holter monitor completed [email or web address] [address], [address], 09/04/2022 10:06:53 09/09/2022 holter monitor completed [email or web address] [address], [address], 09/10/2022 08:20:09 09/01/2022 electrocardiogram completed [email or web address] [address], [address], 09/02/2022 12:56:39 09/09/2022 holter monitor completed [email or web address] Informa tion not available 09/11/2022 09:32:22 09/10/2022 US, abdomen, limited completed [email or web address] [facility] [address], [place], [address], 09/15/2022 11:50:12 09/10/2022 US, gallbladder completed [email or web address] [facility] [address], [place], [address], 09/12/2022 16:18:55 09/04/2022 holter monitor completed [email or web address] [employer] [address] [facility] [address] [address], [place], [address], 10/07/2022 11:06:16 09/11/2022 US, echocardiogram, transthoracic, complete, w/ color flow completed [facility] [address], [place], [address], 10/28/2023 12:51:14 09/10/2022 US, echocardiogram completed [email or web address] [place], [place] [address] [address], [place], [address], 09/15/2022 11:50:12 Procedure Notes None recorded. Medical [...] mL by intramus cular route. 06/04 completed [id number] Not Available Not Available Not Available clotrimaz [...] Not Available Vitals Date Recorded Body height Body mass index (BMI) Body weight Heart rate Respiratory rate Oxygen saturation Oxygen saturation in Arterial blood by Pulse oximetry Systolic blood pressure Diastolic blood pressure Provider Name and Address Organization Details Last Updated DateTime 3 170.18 cm 24.5 kg/m2 91436.8 5 g 79 /min 16 /min 96 % 96 % 134 mm[Hg] 72 mm[Hg] Maura Trejoer [facility] 3 12:54:49 Date Recorded Body height Body mass index (BMI) Body weight Body temperature Heart rate Oxygen saturation Oxygen saturation in Arterial blood by Pulse oximetry Pain severity - 0-10 verbal numeric rating [Score] - Reported Systolic blood pressure Diastolic blood pressure Provider Name and Address Organization Details Last Updated DateTime 3 170.18 cm 24.4 kg/m2 86425.4 1 g 97.4 [degF] 92 /min 96 % 96 % 0 120 mm[Hg] 71 mm[Hg] Ashlee Irwin [facility] 3 14:44:08 Social History Question Answer Notes LastModified by Organizat ion Details LastModified Time Tobacco Smoking Status Never [email or web address] 03/07/2021 15:36:13 Do You Have An Advance Directive? No Information not available 03/07/2021 What Is Your Level Of Alcohol Consumption? Occasional [email or web address] Information not available 03/07/2021 What Is Your Level Of Caffeine Consumption? Occasional [email or web address] Information not available 03/07/2021 Are You A Caregiver? No Information not available 03/07/2021 Are You Currently Employed? No [email or web address] Information not available 03/07/2021 What Type Of Diet Are You Following? REGULAR [email or web address] Information not available 03/07/2021 What Is The Highest Grade Or Level Of School You Have Completed Or The Highest Degree You Have Received? [id number] [email or web address] Information not available 03/07/2021 Have There Been Any Changes To Your Family Or Social Situation? No [email or web address] Information no t available 03/07/2021 Where Do You Live? SingleLevelHouse [email or web address] Information not available 03/07/2021 Living Will No [email or web address] Information n ot available 03/07/2021 Power Of Financial Internship No Informa tion not available 03/07/2021 Health Care Surrogate No [email or web address] Information not available 03/07/2021 Five Wishes No [email or web address] Information n ot available 03/07/2021 DNR No [email or web address] Information no t available 03/07/2021 Guardian No [email or web address] Information no t available 03/07/2021 Total Number In Household 1 Information not available 03/07/2021 Do You Have Local Family? Yes [email or web address] Information not available 03/07/2021 Caodaism Preference None Information not available 03/07/2021 Domestic Violence No [email or web address] Informa tion not available 03/07/2021 Occupational Exposures No Information not available 03/07/2021 Do You Have Any Financial Concerns Related To The Medications You Are Taking? No [email or web address] Information not available 03/07/2021 Do You Have Any Other Barriers Related To The Medications You Are Taking? No [email or web address] Information not available 03/07/2021 Do You Have Any Communication Barriers? Hearing [email or web address] Information not available 03/07/2021 Does The Family Or Caregiver Have Any Communication Barriers? None [email or web address] Information not available 03/07/2021 During The Past 4 Weeks, How Many Drinks Of Wine, Beer, Or Other Alcoholic Beverages Have You Consumed? 1 Drink/week [email or web address] Information not available 03/07/2021 Do You Understand The Medication You Are Taking? Yes [email or web address] Information not available 11/27/2021 Do You Have A Medical Power Of Financial Internship? No [email or web address] Information not available 03/07/2021 Do You Have An Out Of Hospital DNR? No [email or web address] Information not available 03/07/2021 Have You Ever Been Counseled For Unhealthy Alcohol Use? No [email or web address] Information not available 03/07/2021 Do You Have Any Pets? Yes Information not available 03/07/2021 What Is Your Relationship Status? Unknown [email or web address] Information not available 03/07/2021 Do You Use Your Seat Belt Or Car Seat Routinely? Yes [email or web address] Information not available 03/07/2021 Are You Sexually Active? No Information not available 03/07/2021 Do You Have Smoke And Carbon Monoxide Detectors In Your Home? Yes [email or web address] Information not available 03/07/2021 Are You Passively Exposed To Smoke? No [email or web address] Information no t available 03/07/2021 Are There Any Smokers In Your House? No [email or web address] Information not available 03/07/2021 What Types Of Sporting Activities Do You Participate In? None [email or web address] Information not available 03/07/2021 Do You Feel Stressed (tense, Restless, Nervous, Or Anxious, Or Unable To Sleep At Night)? [id number] [email or web address] Information not available 03/07/2021 Do You Use Any Illicit Or Recreational Drugs? No [email or web address] Information not available 03/07/2021 Do You Use Sunscreen Routinely? No Information not available 03/07/2021 Has Tobacco Cessation Counseling Been Provided? Yes Information not available 09/09/2022 On What Date Was Tobacco Cessation Counseling Provided? 09/09/2022 Information not available 09/09/2022 Sex: Female Functional Status Question Answer Note LastModified by Organization D etails LastModified Time Are you able to care for yourself? Yes [email or web address] Information n ot available 03/07/2021 What is your exercise level? None [email or web address] Information not available 03/07/2021 Mental Status None [...] preservative free, adsorbed 2 completed Apurva Mcknight, DENTAL EQUIPMENT TECHNICIAN [address] [place], [address], [facility] 05/06/2022 10:14:45 Influenza, split virus, quadrivalent, preservative 0 completed Not Available [facility] 07/07/2021 20:39:41 COVID-19, mRNA, LNP-S, PF, 30 mcg/0.3 mL dose 1 completed Not Available [facility] 07/07/2021 20:39:41 COVID-19, mRNA, LNP-S, PF, 30 mcg/0.3 mL dose 1 completed Not Available [facility] 07/07/2021 20:39:40 COVID-19, mRNA, LNP-S, PF, 30 mcg/0.3 mL dose 1 completed [facility] [facility] 02/24/2022 11:14:16 COVID-19, mRNA, LNP-S, PF, 30 mcg/0.3 mL dose, alfred-sucrose 2 completed Ashlee Irwin null[place] [facility] 02/24/2022 11:14:16 Influenza, high-dose, quadrivalent, PF 1 completed Ashlee Irwin null[place] [facility] 02/24/2022 11:14:16 COVID-19, mRNA, LNP-S, PF, 30 mcg/0.3 mL dose 2 completed Anupama mendoza, [place] [facility] 03/31/2022 16:05:37 Influenza, split virus, quadrivalent, preservative 2 completed Anupama mendoza, [place] [facility] 03/31/2022 16:05:53 Past Encounters Encounter ID Performer Location Encounter Start Date Encounter Closed Date Diagnosis/Indication Diagnosis SNOMED-CT Code Diagnosis ICD10 Code Diagnosis Note [id number] Yovany Galindo DO [facility] [address] [place] [address] 03/26/2021 15:25:05 03/26/2021 16:28:27 Hyperlipidemia 55613295 E78.5 On atorvastat in. High cholestero l [...] and maintainin g a normal weight. Hypothyroidism 54362618 E03.9 Will check levels with next labs. Irritable bowel syndrome 98381412 K58.9 Stable if watching diet. Osteoporosis 73637748 M8 1.0 Encouraged exercise including weight bearing exercise. Take vitamin D 2000 units daily in the evening and daily calcium of 1200 mg. [id number] Katrina Taylor [address] [address] 05/01/2021 08:29:16 05/02/2021 00:45:35 Hypothyroidism 65387780 E03.9 Osteoporosis 09404637 M8 1.0 Hyperlipidemia 27146856 E78.5 [id number] Yovany Galindo DO [address] [address] 05/08/2021 14:46:46 05/08/2021 16:07:06 Adult health examination 208292471 Z00.00 Completed today. - regular physical exercise, [...] blos work next time Medication review done 025111592 Z76.89 Please let us know if your [...] of life for patients. Risk assessment done 683 479934 Z76.89 Environmen berenice and social supports that [...] money. Advance di rective discussed with patient 512550364 Z71.89 Advance directives are legal documents that [...] on file please discuss this with your [facility] Health Team. Bilateral hearing loss 43055370 H91.93 Ophthalmic examination and evaluation 33885695 Z01.00 Osteoporosis 91781097 M8 1.0 continue alendronat e as previously Hypothyroidism 01178412 E03.9 continue levothyrox ine as beofre Hyperlipidemia 14572948 E78.5 on atorvastat in and tolerating well Irritable bowel syndrome 35004114 K58.9 she is fine with her diet and how things are right now. 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 Skin lesion on right aspect of neck present for approx 2 weeks, and worsening. Pt has been applying Bacitracin without any improvemen t. [id number] Yovany ZunigaeDO [address] [address] 08/21/2021 10:52:53 08/21/2021 11:26:40 Tinea corporis 95398969 B35.4 I feel that patient should try get this with an antifungal cream and see if this will help resolve. She will stop the combo cream. She will let me know if this is not resolving. She will still avoid wearing jewelry around her neckline. Osteoporosis 42397700 M8 1.0 Patient is on alendronat e but is due for her bone density testing so this was ordered.En couraged exercise including weight bearing exercise. Take vitamin D 2000 units daily in the evening and daily calcium of 1200 mg. [id number] ROBERT SCHULTZ [address] [address] 10/28/2021 14:37:15 10/28/2021 14:53:47 COVID-19 783912805 U07.1 The pt tested positive for COVID19 [...] in agreement with the treatment plan discussed. [id number] ROBERT SCHULTZ [address] [address] 10/31/2021 10:46:43 10/31/2021 11:03:50 Acute pharyngitis 233260193 J02.9 The pt's throat is mildly erythemato us. No tonsillar enlargemen t noted. The pt's symptoms are lasting longer that typical with COVID19 and worsening. Will treat as below for secondary infection. Pt verbalizes understand ing and is in agreement with the treatment plan discussed. COVID-19 360761104 U07.1 The pt tested positive for COVID19 [...] typical for this. Will treat as below. [id number] Sheri vo MD [address] [address] 11/27/2021 15:42:21 11/27/2021 16:37:15 Adult health examination 698716425 Z00.00 Medication review done 481872832 Z76.89 Please let us know if your [...] life for patients. Risk assessment done 712 445349 Z76.89 Environmen berenice and social supports that [...] and managing money. Advance care planning 71 9013185 Z71.89 Discussed with patient the need to [...] visit. Screening for malignant neoplasm of colon 489695898 Z12.11 Patient was explained the importance of [...] me. Screening for malignant neoplasm of breast 612494358 Z12.39 Z12.31 Hypothyroidism 40073780 E03.9 currently on levothyrox ine 75mcg p.o. q.day, obtain baseline TSH and Free T4, patient denies any fatigue weight changes or appetite change Hyperlipidemia 65658071 E78.5 counseled patient on the importance of [...] and hypertensi on. Vitamin D deficiency [address] ess incontinence 25075171 N39.3 recommend kegel exercises to improve incontinen ce, and patient agrees to trying PT [id number] Torsten [address] [place] [address] 01/22/2022 09:21:07 01/23/2022 02:23:48 Vitamin D deficiency 10519527 E55.9 Hypothyroidism 34902174 E03.9 Hyperlipidemia 67342551 E78.5 Palpitations 98497721 R0 0.2 [id number] Davide Rob MD [address] [address] 01/16/2022 09:48:29 01/16/2022 10:55:42 Palpitations 12399945 R00.2 Pt. presents with c/o heart palpitatio [...] is WNL. Recommende d that patient call TV office for worsening symptoms or concerns. Bilateral tinnitus 26563 68044 102 H93.13 Pt. has c/o hearing loss and tinnitus in both ears- R>L. Plan: Pt. interested in and agreeable to vestibular therapy- send referral. Recommende d that patient call TV office for worsening symptoms or concerns. Hypothyroidism 15115796 E03.9 Pt. has a h/x of hypothyroi dism and on levothyrox ine- possible cause of palpitatio ns. Plan: Check TSH and T4. Recommende d that patient call [facility] office for worsening symptoms or concerns. 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 reports she will start physical therapy on Thursday for pelvic therapy. [id number] Sheri vo MD [address] [address] 01/28/2022 09:44:48 01/28/2022 11:01:45 Intermittent palpitations 676590393 R00.2 Pt. reports that some days I don't think about them and don't have them. Pt. reports that the palpitatio ns do not seem to be as frequent. Also, patient is doing less caffeine and more decaf. Plan: If symptoms persist or worsen, consider Holter monitor. Recommende d that patient call [facility] office for worsening symptoms or concerns. Vitamin D deficiency 347 11862 E55.9 Vit. D 24.7- Recommende d to take vitamin-D 2000 units once a day. Discussed foods rich in Vitamin D. Plan: Recommende d that patient call [facility] office for worsening symptoms or concerns. Cobalamin deficiency 190 289224 E53.8 Vitamin B12- 165 low. Possible cause of heart palpitatio ns. Plan: Vitamin B12 injections weekly x 4 weeks. Recheck B12 in one month. Recommende d that patient call [facility] office for worsening symptoms or concerns. Bilateral tinnitus 76191 69022 102 H93.13 Pt. has c/o hearing loss and tinnitus in both ears- R>L. Plan: Pt. was seen by audiology. She reports she was advised to stop salting food as it could help with tinnitus. Recommende d that patient call [facility] office for worsening symptoms or concerns. [id number] Katerina [address] [place] [address] 02/25/2022 09:49:09 02/26/2022 08:02:38 Cobalamin deficiency 795443354 E53.8 [id number] Diandra Johnson [address] [address] 02/06/2022 09:53:24 02/06/2022 10:01:59 Vitamin B12 level below reference range 616659345 R79.9 [id number] Ashlee Iwrin [address] [address] 02/13/2022 09:50:39 02/13/2022 09:58:06 Vitamin B12 level below reference range 230369700 R79.9 [id number] Ashleetanya Irwin [address] [place] [address] 02/20/2022 09:09:52 02/20/2022 09:19:19 Vitamin B12 level below reference range 095236383 R79.9 [id number] Davide Rob MD [address] [place] [address] 03/04/2022 09:59:22 03/04/2022 10:19:24 Cobalamin deficiency 373291590 E53.8 Pt VitB12 was 165 at last visit in January. Here today to f/u on B12 recheck after receiving B12 injections for past month- WNL 944. Continue B12 supplement s. Recommende d that patient call TV office for worsening symptoms or concerns. Intermitte nt palpitations 476260884 R00.2 Pt. reports possible decrease in palpitatio ns. I haven't stopped myself to say oh there it is . Plan: Recommende d that patient call TV office for worsening symptoms or concerns. [id number] Sheri vo MD [facility] [address] [place] [address] 03/31/2022 15:53:03 03/31/2022 16:33:04 Hypothyroidism 22856929 E03.9 currently well controlled on levothyrox ine 75mcg po qd, and thyroid level in range Hyperlipidemia 94714473 E78.5 counseled patient on the importance of changing diet to reduced fat, no fried foods, reduce consumptio n of sugar, and not to eat processed foods including pre packed and canned food items. I also recommend to get physical activity 10-20 min as tolerated per day. I explained that all of these help to control blood sugar and hypertensi on. Osteoarthritis 149842520 M19.90 counseled patient on the importance of [...] and hypertensi on. Vitamin D deficiency 347 01415 E55.9 all labs are within normal range except vitamin-D level is low, take vitamin-D 2000 units once a day Epigastric pain 73850724 R10.13 [id number] Apurva [address] [address] 06/04/2022 15:17:14 06/04/2022 16:03:56 Cat bite - wound 063116497 W55.01XA Pt. presents for f/u on cat [...] F/u again in 1 week. Skin tag 803627000 L91.8 She reports a skin tag under right eye. She will return the first of the year for referral to dermatolog y. Circles under eyes 37000 8003 R68.89 She reports circles under eyes- will return the first of the year for referral to dermatolog y. Skin lesion 75987389 L98 .9 She has a raised lesion under right eye. She will return the first of the year for referral to dermatolog y. [id number] [address] [address] 09/04/2022 08:42:57 09/07/2022 13:23:33 Epigastric pain 66217687 R10.13 Cobalamin deficiency 190 582622 E53.8 Hypothyroidism 09276974 E03.9 Hyperlipidemia 43588959 E78.5 [id number] Apurva [address] [address] 05/02/2022 13:44:30 05/02/2022 14:45:43 Cat bite - wound 675195883 W55.01XA Cat bite about 10:30 am on right 5th digit right hand. She works for the [employer]. She thinks the cat is up to date on vaccines, but is not for sure. Dr Polanco at bedside for evaluation also. No inguinal lymph node swelling noted. Xray ordered due to bite near PIP on the 5th digit. Dr Polanco saw xray and recommends pt, go to TV for ABT due to possible fracture and IV ABT. Pt. made aware and verbalizes understand ing. Recommende d that she notify [facility] of any changes to wound appearance including swelling, pain. or if she develops a fever, chills, nausea or vomiting. F/u on Thursday. [id number] Apurva Mcknight[address] [address] 05/06/2022 08:56:14 05/06/2022 10:27:46 Administration of tetanus vaccine 978371363 Z23 Discussed with pt. benefit of getting tetanus booster and recommende d at this time. Cat bite - wound 8693309 04 W55.01XA Pt. presents for f/u on [...] or vomiting. F/u again in 1 week. [id number] Apurva Mcknight[address] [address] 06/24/2022 16:24:04 06/24/2022 16:57:10 Osteoarthritis of knee 019106170 M17.0 Pt. reports she has osteoarthr itis of bilateral knees and sees Dr. Taylor- new insurance and need referral. Bilateral hearing loss 19253428 H91.93 Pt. requests referral for annual hearing exam. She wears hearing aid. Ophthalmic examination and evaluation 76365308 Z01.00 Pt. requesting referral for eye exam and evaluation . [id number] Apurva Mcknight[address] [address] 09/01/2022 09:51:30 09/01/2022 10:41:03 Hypothyroidism 23658204 E03.9 Pt. has a h/x of hypothyroi dism and on levothyrox ine- possible cause of palpitatio ns. Plan: Check TSH and T4. Recommende d that patient call [facility] office for worsening symptoms or concerns. Cobalamin deficiency 190 771960 E53.8 Pt VitB12 was 165 at last visit in January. She had B12 injections and was recommende d to continue Vit B12 1000mcg daily. Plan: Check B12 levels. Epigastric pain 25830396 R10.13 Pt. is having epigastric pain. + epigastric tenderness . Also has pain between her shoulder blades. Reports occasional nausea. Plan: Orders as shown below. Intermitte nt palpitations 293770453 R00.2 Pt. reports possible decrease in palpitatio ns. I haven't stopped myself to say oh there it is . Plan: Orders as shown below. Recommende d that patient call [facility] office for worsening symptoms or concerns. [id number] [facility]ON [facility]ENJ[facility]IN [facility] [address] [place] [address] 09/09/2022 12:44:28 09/09/2022 13:28:40 Intermittent palpitations 045250696 R00.2 She has holter monitor pending. Her [...] minutes a day, 5 days a week. [id number] Anupama Montelongo [facility] [address] [place] [address] 09/04/2022 08:43:28 09/04/2022 08:56:40 Palpitations 53775448 R00.2 [id number] Ramses Han [facility] [address] [place] [address] 09/09/2022 08:52:23 09/09/2022 08:59:05 Palpitations 76092502 R00.2 [id number] Apurva Mcknight APRN [facility] [address] [place] [address] 09/09/2022 14:39:28 09/09/2022 15:20:56 Adult health examination 053920675 Z00.00 Patient had adult health exam in clinic on today's date.Recom mend 150 minutes of physical activity per week.Recom mend patient ingest at least 5 servings of fruits and vegetables per day.Encour age patient on proper hydration. Discussed preventati ve care including colorectal screening and immunizati ons.Import ance of living will and advanced directives discussed. Medication review done 441945364 Z76.89 Please let us know if your [...] of life for patients. Risk assessment done 511 009549 Z76.89 Environmen berenice and social supports that [...] money. Advance di rective discussed with patient 094499393 Z71.89 Advance directives are legal documents that [...] on file please discuss this with your [facility] Health Team. Screening for malignant neoplasm of colon 330849430 Z12.11 Cologuard last year and it was negative. No family or personal h/x of colon cancer.She reports no abnormal colonoscop ies in the past. Screening for osteoporosis 387565710 Z13.820 LAST DEXA 10/02/21- osteoporos is and [...] exercises and exercising daily. Screening mammography 24 113150 Z12.31 Pt. reports she may do mammogram after she moves. She reports no results because she haven't done it in awhile. Impacted c erumen in right ear 3629521188 185939 H61.21 She reports audiologis t states right ear with impacted cerumen. Will use Debrox- no need for ear irrigation at this time. Hypothyroidism 50549789 E03.9 Pt. is [place] of [place] and requesting med refill to [facility]. Patient presented for medication refill. Patient tolerating medication well at current dose without adverse effects. Refilled as below. Discussed plan with {{patient family* pa tient and family car egiver pat ient and caregiver} }, who expressed understand ing. Follow up as noted below. Hyperlipidemia 83922747 E78.5 Pt. is moving out of state [...] Tomas Member ID Guarantor Name 09/04/2022 1 [facility] - FOCUS - CAPITATION PLAN - [employer] (MEDICARE REPLACEMENT/A DVANTAGE - HMO) [id number] Cortes [id number] Izabel Cortes 09/04/2022 1 [facility] - [employer] - CAPITATION PLAN - [employer] (MEDICARE REPLACEMENT/A DVANTAGE - HMO) [id number] Cortes [id number] Izabel Cortes 09/09/2022 1 [facility] - [employer] - CAPITATION PLAN - [employer] (MEDICARE REPLACEMENT/A DVANTAGE - HMO) [id number] Cortes [id number] Izabel Cortes 09/09/2022 1 [facility] - [employer] - CAPITATION PLAN - [employer] (MEDICARE REPLACEMENT/A DVANTAGE - HMO) [id number] Cortes [id number] Izabel Cortes 09/09/2022 1 [facility] - [employer] - CAPITATION PLAN - [employer] (MEDICARE REPLACEMENT/A DVANTAGE - HMO) [id number] Cortes [id number] Izabel Cortes Notes Date Note Type Note [...] changesEchocardiogram scheduled with LMI tomorrow ION BENJAMIN [facility] [place], [address], [facility] 09/09/2022 14:05:46 3 text/html HPI EPPVReported [...] no with bladder control or leakage? no Clovisa Roxanna, DENTAL EQUIPMENT TECHNICIAN [address] [place], [address], [facility] 09/09/2022 15:25:05 OBGyn Episode No OBEpisode recorded.
--- OUTSIDE RECORDS SUMMARY | 2024-09-19 15:23 | XMS_ITS | Patient Health Record ---
Author Organization [facility] Address [address] [place] [address] Care Team Providers Care Senior Ios Software Engineer Name Role Phone Sheri Harris MD Primary Care Provider Bashir Garcia Unavailable [phone] Allergies No Known Allergies Reason For Referral No Information Medications Medication SIG (Take, Route, Frequency, Duration) Notes Start Date End Date Status levothyroxine 75 mcg (0.075 mg) 1 tab(s) orally once a day for 30 day(s) Active atorvastatin 20 mg 1 tab(s) orally once a day for 30 day(s) Active Social History Tobacco Use: Social History Observation Description Date Details (start date - stop date) Never Smoker NA - NA Smoking: Question Answer Notes Are you a: never smoker alcohol screening Question Answer Notes Did you have a drink containing alcohol in the p ast year? Yes Problems Problem Type SNOMED Code ICD Code Onset Dates Problem Status W/U Status Risk Notes Problem Osteoarthritis of knee (647212707) Bilateral primary osteoarthritis of knee (M17.0) Active confirmed Problem Primary osteoarthritis (605807607) Unilateral primary osteoarthritis, right knee (M17.11) Active confirmed Problem Osteoarthritis of knee (548195751) Unilateral primary osteoarthritis, left knee (M17.12) Active confirmed Plan Of Treatment No Information Insurance Providers Payer Name Payer Address Payer Phone Subscriber Number Group Number Insured Name Patient Relationship to Insured Coverage Start Date Coverage End Date [facility] [employer] [address] [address] [place] [address] [id number] Izabel Cortes Self - patient is the insured 3 Medical (General) History Surgical History Surgery Date(Month/Year)
--- OUTSIDE RECORDS SUMMARY | 2024-09-19 15:23 | XMS_ITS | Continuity of Care Document ---
Author Organization [facility] s Address [address] [address] Care Team Providers Care Print Shop Stenographer Name Role Phone Eliazar Tucker OD Unavailable [...] Diagnoses Date Provider Providers Copied on Encounter [facility], [address] [place], [place] [address], [id number], [facility] BRN No Information Sep-0 3 Garrett OD Eliazar. [facility] , [place], [place], [address] [place] [address]. tel:[phone] [facility], [address] [place] [address], [place], [address] [place] [address], [facility] BRWN glaucoma suspect (chief complaint) Open angle with borderline findings and low glaucoma risk in both eyesPresence of intraocular lensOther secondary cataract, right eyePosterior vitreous detachment of left eyePresbyopia 3 Garrett OD Eliazar. [address] [place] [address], [place], [address] [place] [address] , . [phone] Referring Provider: Eliazar Tucker OD A, [address] [place] [address] , [place], [address] [place] [address] . tel:[phone] [place] [address], [place], [address] [place] [address], [facility] Open angle with borderline findings, high risk, bilateral Jul-0 3 Garrett OD Eliazar. [address] [place] [address], [place], [address] [place] [address] , . [phone] Referring Provider: Eliazar Tucker OD A, [address] [place] [address] , [place], [address] [place] [address] . tel:[phone] Offic/outpt E&m Estab Low-mod [facility], [address] [place] [address], [place], [address] [place] [address], [facility], [place] Glaucoma (chief complaint)F loater (chief complaint) Open angle with borderline findings, high risk, bilateralPresenc e of intraocular lensOther secondary cataract, right eyePosterior vitreous detachment of left eye Mar-0 2 [place] OD Eliazar. [facility] , [place], [address] [place] [address]. [phone] Referring Provider: Eliazar Tucker OD A, [facility] , [place], [address] [place] [address] . tel:[phone] [facility], [address] [place] [address], [place], [address] [place] [address] [facility] Open angle with borderline findings, high risk, bilateral Sep- 2 [place] OD Eliazar. [address] [facility] [address], [place], [address] [place] [address]. [phone] Referring Provider: Eliazar Tucker OD A, [address] [facility] [address], [place], [address] . tel:[phone] Offic/outpt E&m Estab Low-mod [facility], [address] [place] [address], [place], [address] [place] [address] [facility] Follow Up of glaucoma suspect (chief complaint) Open angle with borderline findings, high risk, bilateralPresenc e of intraocular lens Aug- 2 Garrett OD Eliazar. [address] [place] [address], [place], [address] [place] [address] , . [phone] Referring Provider: Eliazar Tucker OD A, [address] [place] [address], [place], [address] . tel:[phone] [facility], [address] [place] [address], [place], [address] [place] [address], [facility] Open angle with borderline findings and low glaucoma risk in both eyes Aug- 0 2 Garrett OD Eliazar. [address] [place] [address], [place], [address] [place] [address] , . [phone] Referring Provider: Yovany Galindo DO, [address] [facility], [place], [address] . tel:[phone] [facility], [address] [place] [address], [place], [id number], [facility] Glaucoma suspect evaluation (chief complaint) Open angle with borderline findings and low glaucoma risk in both eyesPresence of intraocular lensPosterior vitreous detachment of both eyesOther secondary cataract, right eye 2 [place] OD Eliazar. [address], [place], [place], [id number] , . tel:[phone] Referring Provider: Yovany Galindo DO [address] [place], [address] . 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 Yovany Galindo DO. [...]
== END 2024-09-19 14:19 | disposition home or self-care (01) ==
PROVIDERS: PCP Nurse Practitioner Family; Visit Provider Internal Medicine Endocrinology, Diabetes & Metabolism
DX: M81.0 Age-related osteoporosis without current pathological fracture (principal)
CPT/HCPCS: 99213

== ENCOUNTER → 2024-09-19 13:21 | Outpatient (BNVA) | payer MEDICARE, SELFPAY | PROVIDERS: PCP Nurse Practitioner Family; Visit Provider Internal Medicine Endocrinology, Diabetes & Metabolism | DX: M81.0 Age-related osteoporosis without current pathological fracture (principal) | CPT/HCPCS: 99212 ==

== ENCOUNTER 2024-11-02 07:54 | Outpatient (REF) | payer MEDICARE, SELFPAY ==
--- OUTSIDE RECORDS SUMMARY | 2024-11-02 07:56 | XMS_ITS | Patient Health Record ---
Author Organization [facility] Address [address] [place] [address] Care Team Providers Care Medical Front Desk Specialist Name Role Phone Sheri Harris MD Primary Care Provider Bashir Garcia Unavailable [phone] Allergies No Known Allergies Reason For Referral [...] Status Risk Notes Problem Osteoarthritis of knee (754515825) Bilateral primary osteoarthritis of knee (M17.0) Active confirmed Problem Primary osteoarthritis (528010929) Unilateral primary osteoarthritis, right knee (M17.11) Active confirmed Problem Osteoarthritis of knee (272758455) Unilateral primary osteoarthritis, left knee (M17.12) Active confirmed Plan Of Treatment No Information Insurance Providers Payer Name Payer Address Payer Phone Subscriber Number Group Number Insured Name Patient Relationship to Insured Coverage Start Date Coverage End Date [facility] [address] [address] [place] [address] [phone] [id number] Izabel Cortes Self - patient is the insured 3 Medical (General) History Surgical History Surgery Date(Month/Year)
[2024-11-02 11:19] LABS: Appearance Urine Clear; Color Urine Yellow; Glucose Urine UA Negative (Negative); Leukocyte Esterase Urine Trace (Negative); Nitrite Urine Negative (Negative); PH 5.5 (5.0-9.0); Specific Gravity - Urine 1.015 (1.005-1.025); UMIC TRIGGER UACC YES; Urine Blood Negative (Negative); Urine Ketones Negative (Negative); Urine Protein Negative (Neg-Trace)
[2024-11-02 11:23] LABS: Bacteria Urine None Seen (None Seen); Hyaline Casts Urine 0-2 /LPF (0-2); RBC Urine 0-2 /HPF (0-2); Squamous Epithelial Cell Urine 0-2 /HPF (0-2); WBC Urine 0-5 /HPF (0-5)
[2024-11-02 12:10] LABS: Cholesterol 165 mg/dL (<200); HDL Cholesterol 53 mg/dL (>40); LDL Cholesterol Calculated 96 mg/dL (<100); TSH reflex Free T4 0.62 uIU/mL (0.32-4.0); Triglycerides 84 mg/dL (<150); Vitamin D 25-OH Total 35.1 ng/mL (>30)
== END 2024-11-02 07:55 | disposition home or self-care (01) ==
LOC: HO.WFDLDS 07:54
PROVIDERS: Visit Provider Nurse Practitioner Family
DX: Z00.00 Encounter for general adult medical examination without abnormal findings (principal); E78.5 Hyperlipidemia, unspecified; E55.9 Vitamin D deficiency, unspecified
CPT/HCPCS: 36415; 80061; 81001; 82306; 84443